=== PATIENT | male | born 1960 | race Caucasian/White ===

== ENCOUNTER 2017-06-13 12:04 | Emergency (ER) | payer OTHER ==
[~2017-06-13] VITALS: Ht 180.3 cm; Wt 115.0 kg
[~2017-06-13 12:04] MED LIST: ASPI81TA21 PO; ATOR-26 PO; BUTA1CAP20 PO; INSDGI SC; LISI20TA3 PO; NVLGI SC; SERT-234 PO; SOTA120T PO; TRAZ50TA35 PO; WARF5TAB90 PO
[2017-06-13] MEDS ORDERED: ASPIRIN 81 MG CHEW PO STA (12:15)
[2017-06-13 12:16] VITALS: O2SAT 93
[2017-06-13 12:18] VITALS: TEMP 36.7; Ht 180.3 cm; Wt 115.0 kg
[2017-06-13] MEDS ORDERED: ONDANSETRON INJ 2 MG/ML 2 ML VIAL IV STA (12:24)
[2017-06-13] MEDS ORDERED: MoRPHine SULFATE 4 MG/ML 1 ML CARP\\VIAL IV PRN (12:30)
--- NOTE | 2017-06-13 12:33 | EMERGENCY ROOM VISIT NOTE ---
History Report prepared by Mireille: Shruthi Stoddard Under the Supervision of: Dr. Navdeep Gomez D.O. First contact with patient: 12:14 Chief Complaint: SHORTNESS OF BREATH Stated Complaint: BREATHING DIFFICULTY Nursing Triage Summary: patient to ED via ALS for SOB and chest pain x 2 days, per medic patient was 88 % on RA initially with improvement with one duoneb and 125mg solumedrol. patient hx asthma, everyday smoker, mutliple DE's and CABG patient states, "its just really tight in there, I have chest pain but its feels like its the hardware from my heart surgery" History of Present Illness The patient is a 56 year old male who presents to the Emergency Room with complaints of constant shortness of breath beginning 2 days ago. The patient states that he developed a non-productive cough 2 days ago and has been wheezing. He reports that his cough has caused headaches and chest pain that has worsened over the last 2 days with coughing. He notes that he does have dull chest pain at rest but it is significantly worsened with coughing. The patient complains of a headache, nausea, and lower back pain. He denies any fever, vomiting, leg swelling, leg pain, abdominal pain, and runny nose. He reports a history of bypass in 2006 and cardiac catheterization in 2016. He notes that his symptoms feel similar to a previous pneumonia. The patient states that he is on Warfarin for atrial fibrillation and Aspirin daily. He denies any history of blood clot. He notes that he smokes a 1/2 pack of cigarettes a day. Source of History: patient Onset: 2 days ago Position: other (global) Quality: other (SOB) Timing: constant Modifying Factors (Worsening): other (coughing) Associated Symptoms: + headache, + cough, + chest pain, + nausea, + back pain, No fevers, No vomiting, No abdominal pain Note: He denies any leg swelling, leg pain, and runny nose. Review of Systems See HPI for pertinent positives & negatives. A total of 10 systems reviewed and were otherwise negative. Past Medical & Surgical Medical Problems: (1) CAD (coronary artery disease) (2) Diabetes mellitus type 2 in obese (3) Dyslipidemia (4) History of DE (myocardial infarction) (5) History of TIA (transient ischemic attack) (6) HTN (hypertension) (7) MAGO (obstructive sleep apnea) Surgical Problems: (1) History of coronary artery bypass graft Family History Diabetes mellitus FH: lung disease FHx: cancer FHx: heart disease Hypertension Social History Smoking Status: Current Every Day Smoker Alcohol Use: none Drug Use: none Marital Status: Housing Status: lives with significant other Occupation Status: employed Current/Historical Medications Scheduled Amlodipine (Norvasc), 2.5 MG PO DAILY Aspirin Enteric Coated (Ecotrin Or Generic), 81 MG PO DAILY Atorvastatin (Lipitor), 80 MG PO DAILY Azithromycin (Zithromax), 500 MG PO DAILY Insulin Aspart (Novolog), 40 UNITS SQ DAILY Insulin Aspart (Novolog), 50 UNITS SQ DAILY Insulin Glargine (Lantus Solostar), 100 UNITS SC HS Lisinopril (Prinivil), 10 MG PO DAILY Metformin Hcl Er (Glucophage Er), 500 MG PO BID Sertraline (Zoloft), 50 MG PO DAILY Sotalol Hcl (Sotalol Hcl), 120 MG PO BID Trazodone Hcl (Trazodone), 100 MG PO HS Warfarin Sod (Jantoven), 5 MG PO DAILY Warfarin Sod (Jantoven), 7.5 MG PO DAILY Scheduled PRN Hydrocodone/Acetaminophen 5MG/325MG ([place] 5MG/325MG), 1 TABLET PO Q4 PRN for Pain Allergies Coded Allergies: Oxycodone (Verified Adverse Reaction, Mild, Upset stomach, 06/13/17) Physical Exam Vital Signs Date Time Temp Pulse Resp B/P (MAP) Pulse Ox O2 Delivery O2 Flow Rate FiO2 06/13/17 15:52 156/112 06/13/17 15:39 68 14 94 06/13/17 15:09 70 23 94 06/13/17 15:02 153/73 06/13/17 14:39 68 11 93 06/13/17 14:34 60 12 06/13/17 14:04 75 14 96 06/13/17 13:34 68 15 91 06/13/17 13:04 64 18 90 06/13/17 12:39 69 17 152/86 93 Room Air 06/13/17 12:38 152/86 06/13/17 12:34 70 25 06/13/17 12:18 93 Room Air 06/13/17 12:18 36.7 79 28 177/98 93 Room Air 06/13/17 12:16 93 Room Air 06/13/17 12:16 93 Room Air 06/13/17 12:13 74 06/13/17 12:08 177/98 Physical Exam GENERAL: Patient is awake, alert, somewhat anxious appearing and uncomfortable EYES: The conjunctivae are clear. The pupils are round and reactive. EARS, NOSE, MOUTH AND THROAT: The nose is without any evidence of any deformity. Mucous membranes are moist tongue is midline NECK: The neck is nontender and supple. RESPIRATORY: Normal respiratory effort is noted there is no evidence of wheezing rhonchi or rales CARDIOVASCULAR: Regular rate and rhythm noted there no murmurs rubs or gallops normal S1 normal S2 GASTROINTESTINAL: The abdomen is mildly distended but soft, no guarding or rigidity. Bowel sounds are present in all quadrants. Abdomen is nontender MUSCULOSKELETAL/EXTREMITIES: There is no evidence of gross deformity full range of motion is noted in the hips and shoulders SKIN: There is no obvious evidence of any rash. There are no petechiae, pallor or cyanosis noted. NEUROLOGIC: Patient is awake alert and oriented x3 Medical Decision & Procedures ER Provider Diagnostic Interpretation: Radiology results as stated below per my review and radiologist interpretation: CHEST ONE VIEW PORTABLE HISTORY: 56 years-old Male CHEST PAIN acute atypical chest pain COMPARISON: Chest radiograph 11/15/2015, chest CT 04/14/2016 TECHNIQUE: Portable AP view of the chest FINDINGS: Cardiac silhouette is mildly enlarged, unchanged. Prior median sternotomy and CABG. No pneumothorax, pleural effusion, focal airspace consolidation or overt pulmonary edema. Mild pulmonary vascular congestion. Linear subsegmental left perihilar opacity suggests atelectasis. The bones of the chest appear grossly intact. IMPRESSION: Cardiomegaly and mild pulmonary vascular congestion without overt pulmonary edema. The above report was generated using voice recognition software. It may contain grammatical, syntax or spelling errors. Electronically signed by: Abel Yoo M.D. 06/13/2017 1:01 PM Dictated Date/Time: 06/13/2017 1:00 PM (CHEST FOR PE) ANGIO WITH FINDINGS: CTA: Mild multichamber cardiac enlargement with coronary arterial calcifications. Prior median sternotomy and CABG. Thoracic aorta is not well opacified, however demonstrates no aneurysm or dissection. Imaged proximal great vessels appear patent. Mild to moderate atherosclerosis of the aorta. The pulmonary arterial tree is opacified to level of the proximal subsegmental branches and demonstrates no focal defects to suggest pulmonary thromboembolic disease. CT CHEST: No dominant thyroid nodule identified. Nonspecific mildly prominent 1.7 x 0.9 cm right hilar lymph node seen on image 173 series 4. Mildly prominent 9 mm left hilar lymph node seen on image 174 series 4. Trace bilateral pleural effusions. No pneumothorax. Moderate bronchial wall thickening is noted bilaterally within a multilobar distribution. Mild dependent subsegmental bibasilar atelectasis. Dependent consolidative and groundglass opacities are noted within the right upper lobe abutting the fissure. Linear pleural parenchymal scarring is noted within the anterior segment left upper lobe which is unchanged. Mild intralobular septal thickening bilaterally. Central airways are patent. 5 mm nodule of the right upper lobe, image 214 series 14 appears new from prior study. No acute abnormality of the imaged upper abdomen. Soft tissues are unremarkable. Bones appear intact. IMPRESSION: 1. No pulmonary embolus or acute aortic pathology. 2. Prominence of the pulmonary veins and intralobular septal thickening suggests mild pulmonary edema with trace bilateral pleural effusions. Layering groundglass opacities of the right upper lobe adjacent to the minor fissure suggest alveolar pulmonary edema or less likely pneumonitis. 3. Moderate bilateral bronchial wall thickening likely secondary to underlying congestion with bronchitis also within the differential. 4. Indeterminate 5 mm nodule of the right upper lobe. 5. Prior median sternotomy and CABG. Please refer to below summary of Fleischner criteria recommendations for follow-up of incidental CT nodules (Balaji Onofre, Guidelines for management of small pulmonary nodules detected on CT scans: A statement from the Fleischner Society, Radiology 237: [phone].) SOLID NODULES Solitary nodule size: <6 mm * Low risk patients: no follow-up needed * high risk patients: optional CT at 12 months Solitary nodule size: 6-8 mm * Low risk patients: follow-up at 6-12 months, then consider further follow-up at 18-24 months * high risk patients: initial follow-up CT at 6-12 months and then at 18-24 months if no change Solitary nodule size: >8 mm * either low or high risk patients - consider follow-up CT at 3 months, and/or CT-PET, and/or biopsy Multiple nodules size: <6 mm * Low risk patients: no routine follow-up * high risk patients: optional CT at 12 months Multiple nodules size: 6-8 mm * Low risk patients: follow-up at 3-6 months, then consider further follow-up at 18-24 months * high risk patients: follow-up at 3-6 months, then at 18-24 months if no change Multiple nodules size: >8 mm * Low risk patients: follow-up at 3-6 months, then consider further follow-up at 18-24 months * high risk patients: follow-up at 3-6 months, then at 18-24 months if no change Note: newly detected indeterminate nodule in persons 35 years of age or older. * Low risk patients: minimal or absent history of smoking and/or other known risk factors * high risk patients: history of smoking or of other known risk factors (e.g. first degree relative with lung cancer, or exposure to asbestos, radon, uranium) * if a nodule up to 8 mm is partly solid or is ground glass further follow-up is required after 24 months to exclude possible slow growing adenocarcinoma (VIVIENNE) The above report was generated using voice recognition software. It may contain grammatical, syntax or spelling errors. Electronically signed by: Abel Yoo M.D. 06/13/2017 4:38 PM Dictated Date/Time: 06/13/2017 4:20 PM Laboratory Results 06/13/17 12:32 Red Blood Count 4.97, Mean Corpuscular Volume 83.7, Mean Corpuscular Hemoglobin 29.2, Mean Corpuscular Hemoglobin Concent 34.9, Mean Platelet Volume 10.6, Neutrophils (%) (Auto) 76.4, Lymphocytes (%) (Auto) 14.6, Monocytes (%) (Auto) 7.0, Eosinophils (%) (Auto) 1.5, Basophils (%) (Auto) 0.3, Neutrophils # (Auto) 4.94, Lymphocytes # (Auto) 0.94, Monocytes # (Auto) 0.45, Eosinophils # (Auto) 0.10, Basophils # (Auto) 0.02 06/13/17 12:15 Test 06/13/17 12:15 06/13/17 12:32 Prothrombin Time 28.1 SECONDS (9.0-12.0) Prothromb Time International Ratio 2.7 (0.9-1.1) Activated Partial Thromboplast Time 33.1 SECONDS (21.0-31.0) Partial Thromboplastin Ratio 1.3 Anion Gap 5.0 mmol/L (3-11) Est Creatinine Clear Calc Drug Dose 119.7 ml/min Estimated GFR () 110.3 Estimated GFR (Non- 95.2 BUN/Creatinine Ratio 9.5 (10-20) Calcium Level 8.4 mg/dl (8.5-10.1) Total Bilirubin 0.9 mg/dl (0.2-1) Direct Bilirubin mg/dl (0-0.2) Aspartate Amino Transf (AST/SGOT) 17 U/L (15-37) Alanine Aminotransferase (ALT/SGPT) 30 U/L (12-78) Alkaline Phosphatase 69 U/L (45-117) Total Creatine Kinase 139 U/L (39-308) Creatine Kinase MB 2.9 ng/ml (0.5-3.6) Creatine Kinase MB Ratio 2.1 (0-3.0) Troponin I 0.036 ng/ml (0-0.045) Total Protein 6.7 gm/dl (6.4-8.2) Albumin 3.5 gm/dl (3.4-5.0) Lipase 165 U/L (73-393) Chemistry Specimen Hemolysis White Blood Count 6.46 K/uL (4.8-10.8) Red Blood Count 4.97 M/uL (4.7-6.1) Hemoglobin 14.5 g/dL (14.0-18.0) Hematocrit 41.6 % (42-52) Mean Corpuscular Volume 83.7 fL (80-100) Mean Corpuscular Hemoglobin 29.2 pg (25-34) Mean Corpuscular Hemoglobin Concent 34.9 g/dl (32-36) Platelet Count 98 K/uL (130-400) Mean Platelet Volume 10.6 fL (7.4-10.4) Neutrophils (%) (Auto) 76.4 % Lymphocytes (%) (Auto) 14.6 % Monocytes (%) (Auto) 7.0 % Eosinophils (%) (Auto) 1.5 % Basophils (%) (Auto) 0.3 % Neutrophils # (Auto) 4.94 K/uL (1.4-6.5) Lymphocytes # (Auto) 0.94 K/uL (1.2-3.4) Monocytes # (Auto) 0.45 K/uL (0.11-0.59) Eosinophils # (Auto) 0.10 K/uL (0-0.5) Basophils # (Auto) 0.02 K/uL (0-0.2) RDW Standard Deviation 38.9 fL (36.4-46.3) RDW Coefficient of Variation 13.0 % (11.5-14.5) Immature Granulocyte % (Auto) 0.2 % Immature Granulocyte # (Auto) 0.01 K/uL (0.00-0.02) Platelet Estimate DECREASED Laboratory results per my review. Medications Administered Medications (Trade) Dose Ordered Sig/Raissa Route Start Time Stop Time Status Last Admin Dose Admin Aspirin (Aspirin Chew) 324 mg NOW STAT PO 06/13/17 12:15 06/13/17 12:16 DC 06/13/17 12:37 324 MG Morphine Sulfate (MoRPHine SULFATE INJ) 4 mg Q15M PRN IV 06/13/17 12:30 06/13/17 18:17 DC 06/13/17 12:37 4 MG Ondansetron HCl (Zofran Inj) 4 mg NOW STAT IV 06/13/17 12:24 06/13/17 12:25 DC 06/13/17 12:37 4 MG Azithromycin (Zithromax Tab) 500 mg NOW STAT PO 06/13/17 15:37 06/13/17 15:38 DC 06/13/17 15:54 500 MG ECG Indication: chest pain Rate (beats per minute): 78 Rhythm: normal sinus Findings: Q waves (Inferior), ST depression (Lateral), T-wave inversion, no ectopy Comparison ECG Date: 11/19/15 Change: no significant change ED Course 1214: The patient was evaluated in room C2. A complete history and physical examination were performed. 1215: Aspirin 324mg PO. 1224: Zofran Inj 4mg IV. 1230: Morphine Sulfate 4mg PRN IV pain. 1324: The patient is feeling better. His chest pain has significantly improved. 1326: I spoke to Dr. Metz of Cardiology. He will do an echo on the patient. 1533: I spoke to Dr. Metz about the patients echo. The echo is unchanged from before. At this point his chest pain does not appear to be cardiac in nature. 1537: Zithromax 500 mg PO. 1600: Optiray 320 100 ml IV. 1708: I spoke with the patient and updated them with their findings and pain management options. 1717: Upon reevaluation, the patient is doing well. I discussed the results and treatment plan with him. The patient verbalized agreement of the treatment plan. He was discharged home. Medical Decision Differential diagnosis: Etiologies such as infections, reactive airway disease, pneumonia, pneumothorax , COPD, CHF, cardiac ischemia, pulmonary embolism, musculoskeletal, gastrointestinal, as well as others were entertained. Nursing notes reviewed. The patient is a 56-year-old male who presented to the emergency department for an evaluation of cough. The patient has had ongoing cough symptoms which he thought were more consistent with either pneumonia or bronchitis. The patient has a history of coronary artery disease in the past. His initial EKG did show changes which could be consistent with ongoing ischemia but the patient has significant coronary artery disease as well as a history of bypass. His tracing today could also be consistent with progression of his EKG consistent with his previous disease. The patient's pain was reproducible the abdomen and the chest wall. The patient was treated with pain medication in the emergency department. He was also given aspirin. According to the prehospital personnel the patient was wheezing and was treated with DuoNeb therapy. Upon arrival to the emergency Department his breathing was significantly improved. I discussed the patient's laboratory and radiographic studies with him. I discussed his case with his covering copy center associate. An echocardiogram was ordered to evaluate for the possibility of ischemia. The echocardiogram was felt to be consistent with no significant change from previous. This reason CT the chest was obtained to rule out pulmonary embolism. I discussed the patient's CT report with him. At this time the patient is feeling much better. He is convinced that this is more consistent with bronchitis which she has had in the past or possibly pneumonia. He was started on antibiotic. He was started on pain medication. He was encouraged to rest and avoid any strenuous activity. I encouraged him to follow- up with his primary care physician within the next few days for reevaluation but also return to the emergency department immediately if symptoms change worsen or the need arises. I did offer to have the patient evaluated by the hospitalist for possible inpatient management and serial EKG and troponin measurement. Medication Reconcilliation Current Medication List: was personally reviewed by me Blood Pressure Screening Patient's blood pressure: Elevated blood pressure Blood pressure disposition: Elevated BP felt to be situational Consults Time Called: 1320 Consulting Physician: Dr. Metz - Cardiology Returned Call: 1326, [address] Metz of Cardiology. He will do an echo on the patient. I spoke to Dr. Metz about the patients echo. The echo is unchanged from before. At this point his chest pain does not appear to be cardiac in nature. Impression Primary Impression: Chest pain Additional Impressions: Bronchitis Abnormal EKG Scribe Attestation The scribe's documentation has been prepared under my direction and personally reviewed by me in its entirety. I confirm that the note above accurately reflects all work, treatment, procedures, and medical decision making performed by me. Departure Information Dispostion Home / Self-Care Prescriptions Hydrocodone/Acetaminophen 5MG/325MG ([place] 5MG/325MG) Tab 1 TABLET PO Q4 Y for Pain, #20 TAB Prov: Navdeep Gomez, DO 06/13/17 Azithromycin (Zithromax) 500 Mg Tab 500 MG PO DAILY, #4 TAB Start on 06/14 Prov: Navdeep Gomez, DO 06/13/17 Referrals Fish Estrella D.OSapphire (PCP) Forms HOME CARE DOCUMENTATION FORM, IMPORTANT VISIT INFORMATION Patient Instructions Bronchitis Acute, ED Chest Pain Atypical Unkn Cause, My [facility] Intent Additional Instructions Continue all medications as prescribed. Try to limit your tobacco use. Rest and avoid any strenuous activity. Return to the emergency department immediately if symptoms change worsen or the need arises. Problem Qualifiers Primary Impression: Chest pain Chest pain type: unspecified Qualified Codes: R07.9 - Chest pain, unspecified
[2017-06-13 12:41] LABS: INR 2.7 (0.9-1.1); PARTIAL THROMBOPLASTIN RATIO 1.3; PROTHROMBIN TIME (PATIENT) 28.1 SECONDS (9.0-12.0)
[2017-06-13] MEDS ORDERED: WARF5TAB7 PO (12:47)
[2017-06-13] MEDS ORDERED: AMLO2.5T PO (12:47)
[2017-06-13] MEDS ORDERED: METF500T5 PO (12:47)
[2017-06-13] MEDS ORDERED: NVLG SQ (12:47)
[2017-06-13] MEDS ORDERED: INSDGIPEN SC (12:47)
[2017-06-13 12:53] LABS: HEMATOCRIT 41.6 % (42-52); MEAN CELL VOLUME 83.7 fL (80-100); MEAN CORPUSCULAR HEMOGLOBIN 29.2 pg (25-34); MEAN CORPUSCULAR HGB CONC 34.9 g/dl (32-36); RED BLOOD COUNT 4.97 M/uL (4.7-6.1); WHITE BLOOD COUNT 6.46 K/uL (4.8-10.8)
[2017-06-13 12:57] LABS: BUN/CREATININE RATIO 9.5 (10-20); CALCIUM 8.4 mg/dl (8.5-10.1); CKMB/CK RATIO 2.1 (0-3.0); CREATININE 0.91 mg/dl (0.60-1.40); POTASSIUM 3.9 mmol/L (3.5-5.1)
--- NOTE | 2017-06-13 13:03 | DIAGNOSTIC IMAGING REPORT ---
CHEST ONE VIEW PORTABLE HISTORY: 56 years-old Male CHEST PAIN acute atypical chest pain COMPARISON: Chest radiograph 11/15/2015, chest CT 04/14/2016 TECHNIQUE: Portable AP view of the chest FINDINGS: Cardiac silhouette is mildly enlarged, unchanged. Prior median sternotomy and CABG. No pneumothorax, pleural effusion, focal airspace consolidation or overt pulmonary edema. Mild pulmonary vascular congestion. Linear subsegmental left perihilar opacity suggests atelectasis. The bones of the chest appear grossly intact. IMPRESSION: Cardiomegaly and mild pulmonary vascular congestion without overt pulmonary edema. The above report was generated using voice recognition software. It may contain grammatical, syntax or spelling errors. Electronically signed by: Abel Yoo M.D. 06/13/2017 1:01 PM Dictated Date/Time: 06/13/2017 1:00 PM
[2017-06-13 13:06] LABS: MEAN PLATELET VOLUME 10.6 fL (7.4-10.4); PLATELET COUNT 98 K/uL (130-400)
[2017-06-13 13:07] LABS: BASO % 0.3 %; BASO ABS # 0.02 K/uL (0-0.2); COMPLETE YES; EOS % 1.5 %; IG% 0.2 %; LYMPH % 14.6 %; LYMPH ABS # 0.94 K/uL (1.2-3.4); NEUT % 76.4 %; PLT ESTIMATE DECREASED
[2017-06-13] MEDS ORDERED: AZITHROMYCIN 250 MG TAB PO STA (15:37)
[2017-06-13 15:39] VITALS: PULSE 68; O2SAT 94
--- NOTE | 2017-06-13 15:42 | ECHOCARDIOGRAM REPORT ---
*NOTICE TO RECEIVING CONSTITUTION PARTY AGENCY This information is strictly Confidential and protected under [place] law. [place] law prohibits you from making any further disclosure of this information unless further disclosure is expressly permitted by the written consent of the person to whom it pertains or is authorized by law. A general authorization for the release of medical or other information is not sufficient for this purpose. Hospital accepts no responsibility if the information is made available to any other person, INCLUDING THE PATIENT. Interpretation Summary * Name: CHICHO SALDIVAR Study Date: 06/13/2017 02:06 PM BP: 152/86 mmHg * Patient Location: [facility] HR: 68 * : 1960 (M/d/yyyy) Gender: Male Height: 71 in * Age: 56 yrs Ethnicity: [place] Weight: 253 lb * Ordering Physician: Luis Manuel Metz * Referring Physician: Self, Referred * Performed By: Susana Adler RCS * * Reason For Study: CHEST PAIN * BSA: 2.3 m2 * -- Conclusions -- * No change compared to previous study of 11/17/15. * Normal LV chamber size with mild concentric LVH. * Normal LV systolic function, EF 55-60%. * The base inferior wall is thinned and akinetic. The base/mid posterior wall and mid inferior wall is hypokinetic, otherwise, normal wall motion. * Grade II diastolic dysfunction. * The right ventricular cavity size is normal (basal dimension <4.2 cm in right ventricular apical 4-chamber view). * Aortic valve sclerosis mild, without significant aortic valvular stenosis. * Mild left atrial enlargement. Procedure Details * A complete two-dimensional transthoracic echocardiogram was performed (2D, M-mode, Doppler and color flow Doppler). Left Ventricle * The left ventricle is normal in size. * There is mild concentric left ventricular hypertrophy. * Ejection Fraction = 55-60%. * Left ventricular systolic function is normal. * The base inferior wall is thinned and akinetic. The base/mid posterior wall and mid inferior wall is hypokinetic. Right Ventricle * The right ventricular cavity size is normal (basal dimension <4.2 cm in right ventricular apical 4-chamber view). * The right ventricular systolic function is normal as assessed by tricuspid annular plane systolic excursion (TAPSE) (normal >1.5 cm). Atria * The left atrium is mildly dilated. * Right atrial size is normal. * No ASD detected; PFO is not assessed. Mitral Valve * The mitral valve is normal in structure and function. Tricuspid Valve * The tricuspid valve is normal in structure and function. Aortic Valve * The aortic valve is tricuspid. The leaflet thickness if normal. There is no aortic stenosis, and no significant insufficiency. * Aortic valve sclerosis mild, without significant aortic valvular stenosis. * There is no significant aortic regurgitation. Pulmonic Valve * The pulmonary valve is not well seen, but the Doppler examination is normal without significant regurgitation or stenosis. Great Vessels * The aortic root is normal size. Pericardium/Pleural * There is no pericardial effusion. Left Ventricular Diastolic Function * Diastolic dysfunction, Grade II (pseudonormalization pattern). MMode 2D Measurements and Calculations IVSd 1.4 cm IVSs 2.1 cm LVIDd 5.9 cm LVIDs 4.9 cm LVPWd 1.3 cm LVPWs 1.4 cm IVS/LVPW 1.1 FS 16.2 % EDV(Teich) 172.1 ml ESV(Teich) 114.4 ml EF(Teich) 33.5 % EDV(cubed) 203.7 ml ESV(cubed) 119.7 ml EF(cubed) 41.2 % % IVS thick 51.3 % % LVPW thick 10.2 % LV mass(C)d 346.4 grams LV mass(C)dI 148.7 grams/m\S\2 LV mass(C)s 393.9 grams LV mass(C)sI 169.0 grams/m\S\2 SV(Teich) 57.7 ml SI(Teich) 24.8 ml/m\S\2 SV(cubed) 83.9 ml SI(cubed) 36.0 ml/m\S\2 Ao root diam 2.6 cm Ao root area 5.4 cm\S\2 ACS 2.0 cm LA dimension 4.8 cm LA/Ao 1.8 LVOT diam 1.6 cm LVOT area 2.0 cm\S\2 LVAd ap4 42.2 cm\S\2 LVLd ap4 9.1 cm EDV(MOD-sp4) 161.1 ml EDV(sp4-el) 165.4 ml LVAs ap4 27.2 cm\S\2 LVLs ap4 7.4 cm ESV(MOD-sp4) 91.8 ml ESV(sp4-el) 84.4 ml EF(MOD-sp4) 43.0 % EF(sp4-el) 49.0 % LVAd ap2 37.3 cm\S\2 LVLd ap2 8.3 cm EDV(MOD-sp2) 139.0 ml EDV(sp2-el) 142.3 ml LVAs ap2 26.3 cm\S\2 LVLs ap2 7.0 cm ESV(MOD-sp2) 84.3 ml ESV(sp2-el) 83.8 ml EF(MOD-sp2) 39.3 % EF(sp2-el) 41.1 % LVLd %diff -10.36 % EDV(MOD-bp) 156.8 ml LVLs %diff -6.49 % ESV(MOD-bp) 86.7 ml EF(MOD-bp) 44.7 % SV(MOD-sp4) 69.3 ml SI(MOD-sp4) 29.7 ml/m\S\2 SV(MOD-sp2) 54.7 ml SI(MOD-sp2) 23.5 ml/m\S\2 SV(MOD-bp) 70.1 ml SI(MOD-bp) 30.1 ml/m\S\2 SV(sp4-el) 81.0 ml SI(sp4-el) 34.8 ml/m\S\2 SV(sp2-el) 58.5 ml SI(sp2-el) 25.1 ml/m\S\2 Doppler Measurements and Calculations MV E max maria fernanda 103.2 cm/sec MV A max maria fernanda 58.8 cm/sec MV E/A 1.8 MV P1/2t max maria fernanda 112.2 cm/sec MV P1/2t 69.8 msec MVA(P1/2t) 3.2 cm\S\2 MV dec slope 470.5 cm/sec\S\2 MV dec time 0.21 sec Ao V2 max 126.8 cm/sec Ao max PG 6.4 mmHg Ao max PG (full) 3.7 mmHg ADRIANA(V,A) 1.3 cm\S\2 ADRIANA(V,D) 1.3 cm\S\2 LV V1 max PG 2.7 mmHg LV V1 max 82.1 cm/sec MR max maria fernanda 362.4 cm/sec MR max PG 52.5 mmHg PA V2 max 111.1 cm/sec PA max PG 4.9 mmHg TR max maria fernanda 305.4 cm/sec
[2017-06-13 15:52] VITALS: BP 156/112
[2017-06-13] MEDS ORDERED: OPTIRAY 320 IV PRN (16:00)
--- NOTE | 2017-06-13 16:39 | DIAGNOSTIC IMAGING REPORT ---
(CHEST FOR PE) ANGIO WITH CT DOSE: 588.60 mGycm HISTORY: 56 years-old Male presents with acute atypical chest pain TECHNIQUE: Multiple CTA images of the chest were obtained after the intravenous administration of 89 ml Optiray 320. Coronal and sagittal MIPS were obtained from the axial data set and were submitted for review. A dose lowering technique was utilized adhering to the principles of ALARA. COMPARISON: Chest radiograph of same day, chest CT 04/14/2016. FINDINGS: CTA: Mild multichamber cardiac enlargement with coronary arterial calcifications. Prior median sternotomy and CABG. Thoracic aorta is not well opacified, however demonstrates no aneurysm or dissection. Imaged proximal great vessels appear patent. Mild to moderate atherosclerosis of the aorta. The pulmonary arterial tree is opacified to level of the proximal subsegmental branches and demonstrates no focal defects to suggest pulmonary thromboembolic disease. CT CHEST: No dominant thyroid nodule identified. Nonspecific mildly prominent 1.7 x 0.9 cm right hilar lymph node seen on image 173 series 4. Mildly prominent 9 mm left hilar lymph node seen on image 174 series 4. Trace bilateral pleural effusions. No pneumothorax. Moderate bronchial wall thickening is noted bilaterally within a multilobar distribution. Mild dependent subsegmental bibasilar atelectasis. Dependent consolidative and groundglass opacities are noted within the right upper lobe abutting the fissure. Linear pleural parenchymal scarring is noted within the anterior segment left upper lobe which is unchanged. Mild intralobular septal thickening bilaterally. Central airways are patent. 5 mm nodule of the right upper lobe, image 214 series 14 appears new from prior study. No acute abnormality of the imaged upper abdomen. Soft tissues are unremarkable. Bones appear intact. IMPRESSION: 1. No pulmonary embolus or acute aortic pathology. 2. Prominence of the pulmonary veins and intralobular septal thickening suggests mild pulmonary edema with trace bilateral pleural effusions. Layering groundglass opacities of the right upper lobe adjacent to the minor fissure suggest alveolar pulmonary edema or less likely pneumonitis. 3. Moderate bilateral bronchial wall thickening likely secondary to underlying congestion with bronchitis also within the differential. 4. Indeterminate 5 mm nodule of the right upper lobe. 5. Prior median sternotomy and CABG. Please refer to below summary of Fleischner criteria recommendations for follow-up of incidental CT nodules (Balaji Onofre, Guidelines for management of small pulmonary nodules detected on CT scans: A statement from the Fleischner Society, Radiology 237: [phone].) SOLID NODULES Solitary nodule size: <6 mm * Low risk patients: no follow-up needed * high risk patients: optional CT at 12 months Solitary nodule size: 6-8 mm * Low risk patients: follow-up at 6-12 months, then consider further follow-up at 18-24 months * high risk patients: initial follow-up CT at 6-12 months and then at 18-24 months if no change Solitary nodule size: >8 mm * either low or high risk patients - consider follow-up CT at 3 months, and/or CT-PET, and/or biopsy Multiple nodules size: <6 mm * Low risk patients: no routine follow-up * high risk patients: optional CT at 12 months Multiple nodules size: 6-8 mm * Low risk patients: follow-up at 3-6 months, then consider further follow-up at 18-24 months * high risk patients: follow-up at 3-6 months, then at 18-24 months if no change Multiple nodules size: >8 mm * Low risk patients: follow-up at 3-6 months, then consider further follow-up at 18-24 months * high risk patients: follow-up at 3-6 months, then at 18-24 months if no change Note: newly detected indeterminate nodule in persons 35 years of age or older. * Low risk patients: minimal or absent history of smoking and/or other known risk factors * high risk patients: history of smoking or of other known risk factors (e.g. first degree relative with lung cancer, or exposure to asbestos, radon, uranium) * if a nodule up to 8 mm is partly solid or is ground glass further follow-up is required after 24 months to exclude possible slow growing adenocarcinoma (VIVIENNE) The above report was generated using voice recognition software. It may contain grammatical, syntax or spelling errors. Electronically signed by: Abel Yoo M.D. 06/13/2017 4:38 PM Dictated Date/Time: 06/13/2017 4:20 PM
[2017-06-13] MEDS ORDERED: AZIT500T26 PO (17:18)
[2017-06-13] MEDS ORDERED: HYDR-5688 PO (17:18)
== END 2017-06-13 17:33 | disposition home or self-care (01) ==
LOC: C.EDC 12:04 → EDBD 12:04 → C.EDC 17:33
DX: R07.9 Chest pain, unspecified (principal); J40 Bronchitis, not specified as acute or chronic; R94.31 Abnormal electrocardiogram [ECG] [EKG]; I25.10 Atherosclerotic heart disease of native coronary artery without angina pectoris; E11.9 Type 2 diabetes mellitus without complications; E66.9 Obesity, unspecified; I25.2 Old myocardial infarction; Z86.73 Personal history of transient ischemic attack (TIA), and cerebral infarction without residual deficits; G47.33 Obstructive sleep apnea (adult) (pediatric); I10 Essential (primary) hypertension; E78.5 Hyperlipidemia, unspecified; Z83.3 Family history of diabetes mellitus; Z83.6 Family history of other diseases of the respiratory system; Z80.9 Family history of malignant neoplasm, unspecified; Z82.49 Family history of ischemic heart disease and other diseases of the circulatory system; F17.210 Nicotine dependence, cigarettes, uncomplicated; Z79.4 Long term (current) use of insulin; Z79.01 Long term (current) use of anticoagulants; Z79.899 Other long term (current) drug therapy

== ENCOUNTER → 2017-10-03 | Day surgery (SDC) | payer OTHER ==
[2017-09-27 10:15] VITALS: BMI 36.0
[~2017-10-03] VITALS: Ht 180.3 cm; Wt 118.2 kg
[~2017-10-03] MED LIST changes: +AMLO2.5T PO; -ASPI81TA21 PO; +ASPI81TA28 PO; -BUTA1CAP20 PO; +FLUO40CA8 PO; +FURO-85 PO; -INSDGI SC; +INSDGIPEN SC; +LIDOCAINE HCL 2% 2 ML VIAL (20MG/ML) ONE; +MIDAZOLAM HCL 1 MG/ML 2ML VIAL ONE; +MISCCAP80 PO; +NVLG SQ; -NVLGI SC; +ONDANSETRON INJ 2 MG/ML 2 ML VIAL ONE; +PROPOFOL IV EMULSION 10 MG/ML 20 ML VIAL IV ONE; -SERT-234 PO; +SODIUM CHLORIDE 0.9% 500ML 500 ML IV ONE; -SOTA120T PO; +SOTA80TA PO; +SYMIN160 INH; +VNTHFA/IN INH; +WARF5TAB7 PO; -WARF5TAB90 PO
[2017-10-03 11:00] VITALS: Ht 180.3 cm; Wt 118.2 kg
--- NOTE | 2017-10-03 11:08 | Endo History and Physical ---
History & Physical Date of Service: Oct 03, 2017. Chief Complaint: Diarrhea Referring Physician: Brayan History of Present Illness pt with abdominal pain and diarrhea. Past Surgical History Hx Cardiac Surgery: Yes (CABG 3 VESSELS 2006; 2012 STENT x 2) Hx Internal Defibrillator: No Hx Pacemaker: No Hx Abdominal Surgery: No Hx of Implantable Prosthesis: No Hx Post-Op Nausea and Vomiting: No Hx Cancer Surgery: No Hx Thoracic Surgery: No ( ) Hx Orthopedic: No Hx Urinary Tract Surgery: No Family History None Social History Smoking Status: Current Every Day Smoker Hx Substance Use: No Hx Alcohol Use: No Allergies Coded Allergies: Oxycodone (Verified Adverse Reaction, Mild, DIZZINESS,Upset stomach, ) Current Medications Reported Home Medications Medications Dose Route/Sig Max Daily Dose Days Date Category Dose Instructions Sotalol Hcl 80 Mg Tab 120 Tab PO BID 90 09/27/17 Reported Aspirin Ec (Aspirin) 81 Mg Tab 81 Mg PO QAM 09/27/17 Reported Probiotic (Probiotic Product) 1 Cap Cap 2 Tab PO QAM 09/27/17 Reported Lasix (Furosemide) 20 Mg Tab 20 Mg PO QAM 09/27/17 Reported Ventolin Hfa (Albuterol) 200 Puffs/45484 Mcg Aers 2 Puffs INH Q6H PRN 09/27/17 Reported Symbicort 160/4.5 Inhaler (Budesonide/Formoterol Fumarate) Aero 2 Puffs INH BID 09/27/17 Reported Prozac (Fluoxetine HCl) 40 Mg Cap 40 Mg PO QAM 09/27/17 Reported Norvasc (Amlodipine Besylate) 2.5 Mg Tab 2.5 Mg PO QAM 06/13/17 Reported Jantoven (Warfarin Sodium) 5 Mg Tab 7.5 Mg PO DAILY 06/13/17 Reported WILL CHECK WITH [facility] FOR INSTRUCTIONS takes on sunday, sunday, , sunday and sunday Jantoven (Warfarin Sodium) 5 Mg Tab 5 Mg PO DAILY 06/13/17 Reported WILL CHECK WITH [facility] FOR [facility]STRUCTIONS takes on sunday and sunday Lantus Solostar (Insulin Glargine) 100 Unit/Ml Inj 100 Units SC HS 06/13/17 Reported Novolog (Insulin Aspart) 100 Units/Ml Inj 60 Units SQ SUPPER 06/13/17 Reported Novolog (Insulin Aspart) 100 Units/Ml Inj 40 Units SQ NOON 06/13/17 Reported Lipitor (Atorvastatin Calcium) 80 Mg Tab 80 Mg PO HS 11/15/15 Reported Prinivil (Lisinopril) 20 Mg Tab 10 Mg PO HS 11/15/15 Reported Trazodone (Trazodone HCl) 50 Mg Tab 100 Mg PO HS 03/16/14 Reported Vital Signs Weight (Kilograms): 118.18 Height (Feet): 5 Height (Inches): 11 Physical Exam General Appearance: no apparent distress Respiratory/Chest: Auscultation: breath sounds normal Cardiovascular: Heart Auscultation: RRR Abdomen: Inspection & Palpation: soft Liver: non-tender Assessment and Plan stable for colonoscopy
--- NOTE | 2017-10-03 11:41 | Discharge Instructions ---
Endoscopy Patient Instructions Date / Procedure(s) Performed Oct 03, 2017. Colonoscopy Allergy Information Coded Allergies: Oxycodone (Verified Adverse Reaction, Mild, DIZZINESS,Upset stomach, ) Discharge Date / Findings Oct 03, 2017. Normal colonoscopy Medication Instructions Stopped Medication(s): STOPPED WARAFIN. LAST DATE Sunday. Provider Instructions Activity Restrictions - No exercising or heavy lifting for 24 hours. - Do not drink alcohol the day of the procedure. - Do not drive a car or operate machinery until the day after the procedure. - Do not make any important decisions or sign important papers in 24 hours after the procedure. Following Day: - Return to full activity which may include returning to work/school. Diet Start your diet with liquids and light foods (jello, soup, juice, toast). Then eat your usual diet if not nauseated. Treatment For Common After Affects For mild abdominal pain, bloating, or excessive gas: - Rest - Eat lightly - Lie on right side Follow-Up Information Follow-up with DR. ROBLEDO as scheduled Anesthesia Information What You Should Know You have had a procedure that required some medicine to reduce anxiety and discomfort. This treatment is called moderate sedation. After receiving the treatment, you may be sleepy, but you will be able to breathe on your own. The effects of the treatment may last for several hours. Follow these instructions along with Activity/Diet recommendations noted above: * Do NOT do anything where dizziness or clumsiness would be dangerous. * Rest quietly at home today, then you can be up and about tomorrow. * Have a responsible person stay with you the rest of today. * You may have had an I.V. today. If so, you may take the dressing off later today. Recommendations Call your doctor if: * Trouble breathing * Continuous vomiting for more than 24 hours * Temperature above 101 degrees * Severe abdominal pain or bloating * Pain not relieved by pain medicine ordered * There is increased drainage or redness from any incision * A large amount of rectal bleeding greater than 2-3 tablespoons. (If you had a polyp/s removed or have hemorrhoids, a small amount of blood - from the rectum is to be expected.) * You have any unanswered questions or concerns. IN THE EVENT OF A SERIOUS EMERGENCY, GO TO THE NEAREST EMERGENCY ROOM Your discharge instructions were prepared by provider Sabino Pineda. Patient Instructions Signature Page Hunter Perez Patient (or Guardian) Signature/Date: I have read and understand the instructions given to me by my caregivers. Caregiver/RN/Doctor Signature/Date: The above-named patient and/or guardian has received patient instructions on this date. + Original Patient Signature Page (only) stays with chart. Please make copy for patient.
--- NOTE | 2017-10-03 11:45 | GI REPORT ---
Procedure Date: 10/03/2017 11:08 AM Procedure: Colonoscopy Indications: Generalized abdominal pain, Chronic diarrhea Medicines: See the Anesthesia note for documentation of the administered medications Complications: No immediate complications. Estimated Blood Loss: Estimated blood loss: none. Procedure: Pre-Anesthesia Assessment: - Prior to the procedure, a History and Physical was performed, and patient medications, allergies and sensitivities were reviewed. The patient's tolerance of previous anesthesia was reviewed. - The risks and benefits of the procedure and the sedation options and risks were discussed with the patient. All questions were answered and informed consent was obtained. - Patient identification and proposed procedure were verified prior to the procedure by the physician and the nurse. The procedure was verified in the pre-procedure area. - Pre-procedure physical examination revealed no contraindications to sedation. - After reviewing the risks and benefits, the patient was deemed in satisfactory condition to undergo the procedure. After I obtained informed consent, the scope was passed under direct vision. Throughout the procedure, the patient's blood pressure, pulse, and oxygen saturations were monitored continuously. The Scope was introduced through the anus and advanced to the terminal ileum, with identification of the appendiceal orifice and IC valve. The colonoscopy was performed without difficulty. The patient tolerated the procedure well. The quality of the bowel preparation was good. Findings: The perianal and digital rectal examinations were normal. The terminal ileum appeared normal. The entire examined colon appeared normal on direct and retroflexion views. Impression: - The examined portion of the ileum was normal. - The entire examined colon is normal on direct and retroflexion views. - No specimens collected. Recommendation: - Repeat colonoscopy in 10 years for screening purposes. - Discharge patient to home. Sabino Pineda M.D. Sabino Pineda MD 10/03/2017 11:45:09 AM This report has been signed electronically. Note Initiated On: 10/03/2017 11:08 AM I attest to the content of the Intraoperative Record and orders documented therein, exceptions below
[2017-10-03 12:15] VITALS: BP 128/81; PULSE 66; O2SAT 94
--- NOTE | 2017-10-03 12:25 | Anesthesiology Progress Note ---
Anesthesia Post Op Note Date & Time Oct 03, 2017 at 12:25 Vital Signs Pain Intensity: 0 Vital Signs Past 12 Hours Date Time Temp Pulse Resp B/P (MAP) Pulse Ox O2 Delivery O2 Flow Rate FiO2 10/03/17 12:15 66 18 128/81 (97) 94 Room Air 10/03/17 12:01 68 18 126/79 (95) 96 Room Air 10/03/17 11:46 36.8 58 16 131/88 (102) 97 Room Air 10/03/17 11:10 36.8 58 20 140/86 (104) 96 Room Air Notes Mental Status: alert / awake / arousable, participated in evaluation Pt Amnestic to Procedure: Yes Nausea / Vomiting: adequately controlled Pain: adequately controlled Airway Patency, RR, SpO2: stable & adequate BP & HR: stable & adequate Hydration State: stable & adequate Anesthetic Complications: no major complications apparent
== END | disposition home or self-care (01) ==
LOC: C.GI 09:47
PROVIDERS: ATTEND Internal Medicine Gastroenterology
DX: R10.84 Generalized abdominal pain (principal); R19.7 Diarrhea, unspecified; I48.0 Paroxysmal atrial fibrillation; F17.200 Nicotine dependence, unspecified, uncomplicated; Z88.5 Allergy status to narcotic agent; Z95.1 Presence of aortocoronary bypass graft; Z79.01 Long term (current) use of anticoagulants; Z79.4 Long term (current) use of insulin; Z79.82 Long term (current) use of aspirin

== ENCOUNTER 2019-01-02 02:44 | Inpatient (IN) ==
--- OUTSIDE RECORDS SUMMARY | 2019-01-02 02:46 | External Medical Summary | Continuity of Care Document ---
:1960 Author Name José Miguel Mensah, Provider Address Unavailable Unavailable , Care Team Providers Name Role Phone Naheed Thomson PA-C Unavailable [email or web address] Problems Chronic bronchitis (491.9) (J42) Pulmonary nodule (793.11) (R91.1) Shortness of breath (786.05) (R06.02) Diabetes (250.00) (E11.9) Hyperlipemia (272.4) (E78.5) PAD (peripheral artery disease) (443.9) (I73.9) Angina pectoris (413.9) (I20.9) Atrial fibrillation (427.31) (I48.91) Hypertension (401.9) (I10) Depression (311) (F32.9) Allergies and Adverse Reactions Percocet TABS (Allergy) Reaction: Dizzin ess, Nausea Medications Lisinopril 20 MG Oral Tablet; TAKE 1 TABLET TWICE DAILY. 15 Tablet Bottle Refills: 0 Aspirin 81 MG TABS; TAKE 1 TABLET DAILY. Quantity: 30 Refills: 5 traZODone HCl - 50 MG Oral Tablet; TAKE 1 TABLET AT BEDTIME. Quantity: 30 Refills: 5 NovoLOG 100 UNIT/ML Subcutaneous Solution; USE PER SLIDING S VERO 10 ML Vial Quantity: 10 Refills: 1 Lantus 100 UNIT/ML Subcutaneous Solution; INJECT SUBCUTANEOU SLY DIRECTED. Refills: 0 Nitroglycerin 0.4 MG Sublingual Tablet S ublingual; PLACE 1 TABLET UNDER THE TONGUE EVERY 5 MINUTES FOR UP TO 3 DOSES NEEDED FOR CHEST PAIN.CALL 911 IF PAIN PERSISTS. Refills: 0 Isosorbide Mononitrate ER 60 MG Oral Tab let Extended Release 24 Hour; TAKE 1 TABLET DAILY. Refills: 0 Potassium Chloride TBCR; TAKE 1 TABLET DAILY. Refills: 0 Lasix 20 MG Oral Tablet; TAKE 1 TABLET TWICE DAILY. Refills: 0 Eliquis 5 MG Oral Tablet Start: 019 Refills: 0 amLODIPine Besylate 2.5 MG Oral Tablet; TAKE 1 TABLET DAILY. Refills: 0 Sotalol HCl - 120 MG Oral Tablet; TAKE 1 TABLET TWICE DAILY. Quantity: 60 Refills: 0 Lipitor 80 MG Oral Tablet; TAKE 1 TABLET DAILY. Refills: 0 FLUoxetine HCl TABS; take 40mg daily Sta rt: 24-Aug-2016 Refills: 0 Symbicort 160-4.5 MCG/ACT Inhalation Aer osol; INHALE TWO PUFFS BY MOUTH TWICE DAILY KRYSTAL Thomson Start: 21-Apr-2016 Quantity: 1 10.2 GM Inhaler Refills: 6 Xopenex HFA 45 MCG/ACT Inhalation Aeroso l; INHALE 2 PUFFS EVERY 4 HOURS NEEDED KRYSTAL Thomson Start: 19-Apr-2016 Quantity: 1 15 GM Inhaler Refills: 3 LORazepam 0.5 MG Oral Tablet Start: Quantity: 0.5 Refills: 0 Procedures Procedures not documented Immunizations Immunizations not documented Family History Mother Family history of hypertension (V17.49) (Z82.49) Status: Act charles Family history of asthma (V17.5) (Z82.5) Status: Active Family history of cardiac disorder (V17.49) (Z82.49) Status: Active Family history of pulmonary embolism (V17.49) (Z82.49) Statu s: Active Family history of liver cancer (V16.0) (Z80.0) Status: Activ e Family history of myocardial infarction (V17.3) (Z82.49) Sta tus: Active Father Family history of hypertension (V17.49) (Z82.49) Status: Act charles Family history of cardiac disorder (V17.49) (Z82.49) Status: Active Grandmother Family history of malignant neoplasm of stomach (V16.0) (Z80 .0) Status: Active Grandfather Family history of myocardial infarction (V17.3) (Z82.49) Sta tus: Active Brother Family history of myocardial infarction (V17.3) (Z82.49) Sta tus: Active Social History - Smoking Status Current every day smoker Plan of Treatment Planned Encounters Appointment; aNheed Thomson PA-C Start: 06-Jan-2019 13:30 R equest Planned Observations Planned Goals not documented Results No Known Results Results not documented Encounters Appointment; Naheed Thomson PA-C 08-Jul-2018 13:00 Encounter Diagnosis: Problem not documented Appointment; Naheed Thomson PA-C 28-Jan-2018 13:00 Encounter Diagnosis: Problem not documented Appointment; Naheed Thomson PA-C 31-Jul-2017 14:30 Encounter Diagnosis: Problem not documented Appointment; Naheed Thomson PA-C 24-Jan-2017 14:00 Encounter Diagnosis: Problem not documented Appointment; Naheed Thomson PA-C 06-Jan-2019 13:30 Encounter Diagnosis: Problem not documented
[2019-01-02] MEDS ORDERED: dilTIAZem HCl 5 MG/ML 5 ML VIAL IV STA (02:54)
[2019-01-02 03:14] LABS: Basophils # (auto) 0.05 K/uL (0-0.2); Basophils % (auto) 0.6 %; Eosinophils # (auto) 0.18 K/uL (0-0.5); Eosinophils % (auto) 2.1 %; Hematocrit (blood only) 51.8 % (42-52); Hemoglobin 18.1 g/dL (14.0-18.0); Immature Granulocytes # (auto) 0.01 K/uL (0.00-0.02); Immature Granulocytes % (auto) 0.1 %; Lymphocytes # (auto) 2.53 K/uL (1.2-3.4); Mean Corpuscular Hgb Conc 34.9 g/dL (32-36); Mean Corpuscular Volume 85.5 fL (80-100); Mean Platelet Volume 11.9 fL (7.4-10.4); Neutrophils # (auto) 5.24 K/uL (1.4-6.5); Neutrophils % (auto) 60.2 %; Platelet Count 130 K/uL (130-400); RDW Coefficient of Variation 13.1 % (11.5-14.5); RDW Standard Deviation 40.7 fL (36.4-46.3); Red Blood Count 6.06 M/uL (4.7-6.1); White Blood Count 8.71 K/uL (4.8-10.8)
[2019-01-02 03:25] LABS: Prothrombin Time 10.2 Seconds (9.0-12.0)
[2019-01-02 03:31] LABS: iSTAT Hemoglobin 17.3 g/dl (14.0-18.0); iSTAT Ionized Calcium 1.18 mmol/l (1.12-1.32); iSTAT Potassium 3.9 mEq/L (3.3-5.0)
[2019-01-02 03:33] LABS: Albumin Level 4.3 gm/dl (3.4-5.0); BUN Creatinine Ratio 20.7 (10-20); Calcium 9.4 mg/dl (8.5-10.1); Creatinine Clr Calc Pharmacy 84.5 ml/min; Est GFR (African American) 76.3; Est GFR (Non-African American) 65.9; Potassium 4.1 mmol/L (3.5-5.1)
[2019-01-02 03:40] LABS: Albumin Globulin Ratio 1.2 (0.9-2); Bilirubin,Total 0.5 mg/dl (0.2-1); Creatine Kinase MB 3.9 ng/ml (0.5-3.6); Globulin 3.7 gm/dl (2.5-4.0)
[2019-01-02 03:41] LABS: Troponin I 0.059 ng/ml (0-0.045)
[2019-01-02 04:14] LABS: Partial Thromboplastin Ratio 0.9; Partial Thromboplastin Time 25.7 Seconds (21.0-31.0)
[2019-01-02 04:19] LABS: Magnesium 2.4 mg/dl (1.8-2.4)
--- NOTE | 2019-01-02 04:20 | History & Physical Report ---
Date of Service January 02, 2019 Assessment & Plan (1) Chest pain: Recurrent afib, secondary to missed medication, personal stressors On Eliquis Possible ACS History CAD status post CABG, stent chronic systolic heart failure secondary to ischemic cardiomyopathy EF 30 to 35%, September 2017 Patient euvolemic past history TIA as per records DM 2 insulin requiring, BG is currently elevated Recent outpatient hemoglobin A1c on file was 7.5 last 2012 Hypothyroidism, TSH noted to be elevated ongoing tobacco abuse PCU Continue sotalol for rate/rhythm control Continue aspirin and statin medications for secondary CAD prevention Trend troponin TTE with progression of troponin Cardiology consult RE chest pain Hold Eliquis for now until patient seen by Cardiology; IV heparin if w significant troponin bump Update lipid profile, hemoglobin A1c Basal insulin adjusted for n.p.o. status for possible testing, ISS BG goal 1 40- 1 80 Recheck other TFTs, levothyroxine dose may need adjustment nicotine patch PRN DVT prophylaxis. Resume Eliquis if okay with Cardiology Full code History of Present Illness Chief Complaint: Chest pain Primary Care Provider: Fish Estrella History obtained from patient, family, and records. Medical history significant for chronic systolic heart failure secondary to ischemic cardiomyopathy EF 30 to 35%, September 2017, CAD status post CABG/stenting, A. fib on Eliquis, past history TIA as per records, DM 2 insulin requiring, sleep apnea on CPAP, ongoing tobacco abuse. Recent confinement October 2015 for new onset A. fib. Patient discharged on Sotalol and Coumadin. Coumadin later switched to Eliquis. Last night, patient experience achy substernal discomfort associated with palpitations, shortness of breath symptoms. Some relief with nitroglycerin. Patient burping a lot, denies abdominal pain. Somewhat different from heart attack in the past which presented as right-sided chest pain as per patient. Denies cough, unusual weight gain. Patient missed morning medication yesterday due stress of her father's confinement for heart issues. At the ER, patient noted to be in rapid A. fib. Heart rate in the 120s. Patient received IV Cardizem at the ER. Cardiac rate currently in the 80s. Patient comfortable. Medical History as above Surgical History : CABG Family History : Heart disease Personal/Social history : Half pack daily, no EtOH intake, disabled Allergies Allergy/AdvReac Type Severity Reaction Status Date / Time oxycodone AdvReac Mild DIZZINESS,Upset Verified 01/02/19 03:27 stomach Home Medications Home Medications Medication Instructions Recorded Confirmed Type apixaban [Eliquis] 5 mg PO BID 01/02/19 01/02/19 History aspirin 81 mg PO DAILY 01/02/19 01/02/19 History atorvastatin 80 mg PO DAILY 01/02/19 01/02/19 History empagliflozin 25 mg PO DAILY 01/02/19 01/02/19 History fluoxetine 60 mg PO DAILY 01/02/19 01/02/19 History furosemide [Lasix] 40 mg PO BID 01/02/19 01/02/19 History insulin aspart U-100 [Novolog 40 unit SUBCUT DIRECTED 01/02/19 01/02/19 History U-100 Insulin aspart] insulin aspart U-100 [Novolog 45 unit SUBCUT DIRECTED 01/02/19 01/02/19 History U-100 Insulin aspart] insulin glargine [Lantus Solostar 80 unit SUBCUT QPM 01/02/19 01/02/19 History U-100 Insulin] isosorbide mononitrate 60 mg PO DAILY 01/02/19 01/02/19 History lisinopril 20 mg PO DAILY 01/02/19 01/02/19 History lorazepam 0.5 mg PO Q8H PRN 01/02/19 01/02/19 History nitroglycerin [Nitrostat] 0.4 mg SUBLINGUAL DIRECTED 01/02/19 01/02/19 History potassium chloride 20 meq PO BID 01/02/19 01/02/19 History sotalol 120 mg PO BID 01/02/19 01/02/19 History zolpidem 10 mg PO HS PRN 01/02/19 01/02/19 History Past Med/Surg History Medical History History of TIA (transient ischemic attack) (Acute) CAD (coronary artery disease) (Chronic) Diabetes (Chronic) HTN (hypertension) (Chronic) MAGO (obstructive sleep apnea) (Chronic) Myocardial infarction Surgical History Coronary artery disease involving coronary bypass graft Social History Preferred Language: Ukrainian Communication Ability: Effective 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: No Beliefs That Will Affect Care: None Current Living Situation: Spouse Other Information That Helps Us Care for You: No Feels Safe at Home: Yes Safety Concerns: Feels Safe At This Time Smoking Status: Current every day smoker Tobacco Type: cigarettes Cigarettes Per Day: 10 Do You Dip or Chew Tobacco: No Second Hand Exposure: No Tobacco Cessation Education Requested by Patient: No Hx Alcohol Use: No Hx Substance Use: No Review of Systems Review of Systems: As per HPI, all 10 systems reviewed, all other ROS negative Physical Exam Physical Exam: GENERAL: Comfortable, obese, no respiratory distress SKIN: Normal color, warm HEENT: Bespectacled, pink palpebral conjunctivae, no ptosis, moist buccal mucosa NECK : Supple, short, no tenderness CHEST : CTA, no tenderness HEART : Irregular, no obvious murmurs ABDOMEN: Some distention, nontender EXTREMITIES : No LE swelling/tenderness, no other conspicuous deformities noted NEUROLOGIC : Coherent, no facial asymmetry, no other gross focality Results & Data Vital Signs (Past 12 Hours) Vital Signs Temp Pulse Pulse Resp BP BP Pulse Ox 01/02/19 03:50 83 16 93 01/02/19 03:40 82 23 92 01/02/19 03:31 88 13 91 01/02/19 03:30 85 13 117/82 92 01/02/19 03:26 91 H 87 10 L 124/81 124/81 94 01/02/19 03:20 97 H 17 94 01/02/19 03:17 91 H 14 132/84 91 01/02/19 03:14 125 H 15 163/94 H 96 01/02/19 03:11 115 H 15 155/118 H 97 01/02/19 03:10 122 H 5 L 97 01/02/19 03:02 118 H 17 96 01/02/19 03:01 131 H 15 98 01/02/19 02:50 37.1 C 126 H 18 160/116 H 97 Laboratory Results Laboratory Results WBC 8.71 K/uL (4.8-10.8) 01/02/19 02:58 RBC 6.06 M/uL (4.7-6.1) 01/02/19 02:58 Hgb 18.1 g/dL (14.0-18.0) H 01/02/19 02:58 POC Hgb 17.3 g/dl (14.0-18.0) 01/02/19 03:04 Hct 51.8 % (42-52) 01/02/19 02:58 POC Hct 51 % (42-52) 01/02/19 03:04 MCV 85.5 fL (80-100) 01/02/19 02:58 MCH 29.9 pg (25-34) 01/02/19 02:58 MCHC 34.9 g/dL (32-36) 01/02/19 02:58 RDW Std Deviation 40.7 fL (36.4-46.3) 01/02/19 02:58 RDW Coeff of Leonila 13.1 % (11.5-14.5) 01/02/19 02:58 Plt Count 130 K/uL (130-400) 01/02/19 02:58 MPV 11.9 fL (7.4-10.4) H 01/02/19 02:58 Immature Gran % (Auto) 0.1 % 01/02/19 02:58 Neut % (Auto) 60.2 % 01/02/19 02:58 Lymph % (Auto) 29.0 % 01/02/19 02:58 Barnes % (Auto) 8.0 % 01/02/19 02:58 Eos % (Auto) 2.1 % 01/02/19 02:58 Baso % (Auto) 0.6 % 01/02/19 02:58 Immature Gran # (Auto) 0.01 K/uL (0.00-0.02) 01/02/19 02:58 Neut # (Auto) 5.24 K/uL (1.4-6.5) 01/02/19 02:58 Lymph # (Auto) 2.53 K/uL (1.2-3.4) 01/02/19 02:58 Barnes # (Auto) 0.70 K/uL (0.11-0.59) H 01/02/19 02:58 Eos # (Auto) 0.18 K/uL (0-0.5) 01/02/19 02:58 Baso # (Auto) 0.05 K/uL (0-0.2) 01/02/19 02:58 PT 10.2 Seconds (9.0-12.0) 01/02/19 02:58 INR 1.0 (0.9-1.1) 01/02/19 02:58 APTT 25.7 Seconds (21.0-31.0) 01/02/19 02:58 PTT Ratio 0.9 01/02/19 02:58 POC Sodium 140 mEq/L (135-144) 01/02/19 03:04 Sodium 137 mmol/L (136-145) 01/02/19 02:58 POC Potassium 3.9 mEq/L (3.3-5.0) 01/02/19 03:04 Potassium 4.1 mmol/L (3.5-5.1) 01/02/19 02:58 POC Chloride 103 mEq/L (101-112) 01/02/19 03:04 Chloride 104 mmol/L (98-107) 01/02/19 02:58 Carbon Dioxide 26 mmol/L (21-32) 01/02/19 02:58 POC Total CO2 23 mEq/l (24-31) L 01/02/19 03:04 Anion Gap 7.0 (3-11) 01/02/19 02:58 POC Anion Gap 20.0 mmol/L (16-25) 01/02/19 03:04 POC BUN 29 mg/dl (7-18) H 01/02/19 03:04 BUN 25 mg/dl (7-18) H 01/02/19 02:58 Creatinine 1.22 mg/dl (0.6-1.4) 01/02/19 02:58 POC Creatinine 1.0 mg/dl (0.6-1.3) 01/02/19 03:04 Est Cr Clr Drug Dosing 84.5 ml/min 01/02/19 02:58 Est GFR ( Amer) 76.3 01/02/19 02:58 Est GFR (Non-Af Amer) 65.9 01/02/19 02:58 BUN/Creatinine Ratio 20.7 (10-20) H 01/02/19 02:58 Glucose 222 mg/dl (70-99) H 01/02/19 02:58 POC Glucose (other) 260 mg/dl (70-99) H 01/02/19 03:04 Calcium 9.4 mg/dl (8.5-10.1) 01/02/19 02:58 POC Ioniz Calcium Bobby 1.18 mmol/l (1.12-1.32) 01/02/19 03:04 Magnesium 2.4 mg/dl (1.8-2.4) 01/02/19 02:58 Total Bilirubin 0.5 mg/dl (0.2-1) 01/02/19 02:58 AST 14 U/L (15-37) L 01/02/19 02:58 ALT 33 U/L (12-78) 01/02/19 02:58 Alkaline Phosphatase 104 U/L (45-117) 01/02/19 02:58 Total Creatine Kinase 154 U/L (39-308) 01/02/19 02:58 CK-MB (CK-2) 3.9 ng/ml (0.5-3.6) H 01/02/19 02:58 CK/CKMB % Calc 2.5 (0-3.0) 01/02/19 02:58 POC Troponin I < 0.03 ng/ml (0-0.045) 01/02/19 03:04 Troponin I 0.059 ng/ml (0-0.045) H* 01/02/19 02:58 Total Protein 8.0 gm/dl (6.4-8.2) 01/02/19 02:58 Albumin 4.3 gm/dl (3.4-5.0) 01/02/19 02:58 Globulin 3.7 gm/dl (2.5-4.0) 01/02/19 02:58 Albumin/Globulin Ratio 1.2 (0.9-2) 01/02/19 02:58 Lipase 523 U/L (73-393) H 01/02/19 02:58 TSH 4.720 uIu/ml (0.300-4.500) H 01/02/19 02:58 Diagnostic Findings Chest x-ray as per my interpretation cardiomegaly EKG as per my interpretation : Rate 120, A. fib, normal axis, ST depression la teral leads
[2019-01-02 04:38] LABS: T4 Free Thyroxine 1.36 ng/dl (0.8-1.6)
[2019-01-02] MEDS ORDERED: GLUCOSE 10 TABS/TUBE PO PRN (05:13)
[2019-01-02] MEDS ORDERED: INSULIN GLARGINE SOLOSTAR 100 UNITS/ML 3 ML PEN SQ STA (05:13)
[2019-01-02] MEDS ORDERED: PROMETHAZINE HCL 12.5 MG in SODIUM CHLORIDE 0.9% 50 ML IV PRN (05:13)
[2019-01-02] MEDS ORDERED: ACETAMINOPHEN 325 MG TAB PO PRN (05:13)
[2019-01-02] MEDS ORDERED: GLUCOSE 40% GEL 15 GM TUBE PO PRN (05:13)
[2019-01-02] MEDS ORDERED: NITROGLYCERIN SL 0.4 MG/TAB TAB SL PRN (05:13)
[2019-01-02] MEDS ORDERED: SODIUM CHLORIDE 0.9% 1000ML 1,000 ML IV SCH (05:13)
[2019-01-02] MEDS ORDERED: DEXTROSE 50% 50 ML SYRINGE IV PRN (05:13)
[2019-01-02] MEDS ORDERED: MoRPHine SULFATE 4 MG/ML 1 ML CARP\\VIAL IV PRN (05:13)
[2019-01-02] MEDS ORDERED: GLUCAGON FOR INJ 1 MG VIAL SQ PRN (05:13)
[2019-01-02] MEDS ORDERED: TRAMADOL HCL 50 MG TABLET PO PRN (05:13)
[2019-01-02] MEDS ORDERED: CARBOHYDRATES FOR HYPOGLYCEMIA PO PRN (05:13)
[2019-01-02] MEDS: INSULIN ASPART 100 UNITS/ML 3 ML PEN SC SCH ×4 (05:44→21:34)
[2019-01-02 06:59] LABS: Troponin I 2.69 ng/ml (0-0.045)
[2019-01-02] MEDS ORDERED: Heparin IV Standard *NO* Bolus IV STA (07:04)
--- NOTE | 2019-01-02 07:35 | XRay Report ---
XR chest 1V portable CLINICAL HISTORY: Midsternal chest pain. COMPARISON STUDY: Chest radiograph and chest CT June 13, 2017. FINDINGS: Median sternotomy wires are noted as well as mediastinal surgical clips. Cardiomegaly is un changed. There is no evidence for pulmonary edema. No pneumothorax or pleural effusion is noted. Ther e is no consolidation or evidence for pulmonary edema. Appearance of the chest is unchanged. IMPRESSION: No acute cardiopulmonary findings. No change in appearance of the chest. Electronically signed by: Tim Dahl M.D. 01/02/2019 7:33 AM
[2019-01-02 07:42] LABS: Estimated Average Glucose 206 mg/dl; Hemoglobin A1C 8.8 % (4.5-5.6)
[2019-01-02] MEDS ORDERED: Heparin Adult STANDARD Wt-Based Dextrose 5% 25,000 units/500 mL IV SCH ×2 (08:00→17:00)
[2019-01-02] MEDS ORDERED: PERFLUTREN LIPID MICROSPHERE (DEFINITY) IV ONE (08:07)
[2019-01-02] MEDS: ATORVASTATIN 40 MG TAB PO SCH (08:39)
[2019-01-02] MEDS: SOTALOL HCL 80 MG TAB PO SCH ×2 (08:40→20:25)
[2019-01-02] MEDS: ISOSORBIDE MONO EXTENDED REL 60 MG TABCR PO SCH (08:40)
[2019-01-02] MEDS: ASPIRIN 81 MG ECTAB PO SCH (08:40)
[2019-01-02] MEDS: FLUOXETINE HCL 20 MG CAP PO SCH (08:41)
[2019-01-02] MEDS: LISINOPRIL 20 MG TAB PO SCH (08:41)
--- NOTE | 2019-01-02 08:42 | Hospitalist Progress Note ---
Date of Service January 02, 2019 Assessment & Plan (1) Chest pain: Chest Pain History CAD status post CABG and stent history of ischemic cardiomyopathy EF 30 to 35%, September 2017 Elevated troponins on this admission -Patient reported that prior to hospital presentation on 01/02/19, he was having midsternal chest pain and shortness of breath when he went to bed around 1 AM and took his cardiac medications including Eliquis and Sotalol and symptoms not relieved by CPAP. Patient reports the he was able to to get relief in the Emergency room. Patient currently does not have chest pain. He is breathing on room air. -Patient also found in the ED to be in atrial fibrillation with rapid ventricul ar response. was given IV diltiazem. The patient returned to sinus rhythm by 5:40 AM of 01/02/19 -Heparin drip IV is running because patient made positive troponins (first troponin 0.059. second troponin 2.6), trend troponins, hold Eliquis while on heparin drip -continue home dose aspirin, isosorbide, lisinopril, atorvastatin -home home dose Lasix for now -echocardiogram performed, awaiting cardiology interpretation and consultation recommendations Atrial Fibrillation with rapid ventricular response Paroxysmal atrial fibrillation -Patient also found in the ED to be in atrial fibrillation with rapid ventricular response. was given IV diltiazem. The patient returned to sinus rhythm by 5:40 AM of 01/02/19 -Heparin drip IV is running because patient made positive troponins (first troponin 0.059. second troponin 2.6), trend troponins, hold Eliquis while on heparin drip -continue sotalol BID while awaiting cardiology recommendations Type 2 diabetes mellitus with jail current harrison of insulin -HbA1c is 8.8 -current insulin orders of Lantus is reduced dosing because current NPO status while awaiting cardiology evaluation, sliding scale insulin as needed Tobacco Use -encourage smoking cessation Possible borderline hypothyroidism -TSH elevated as 4.7 however normal t4 -patient should have thyroid n repeated as outpatient past history TIA as per records Full code Maile [phone] Subjective Patient reported that prior to hospital presentation on 01/02/19, he was having midsternal chest pain and shortness of breath when he went to bed around 1 AM and took his cardiac medications including Eliquis and Sotalol and symptoms not relieved by CPAP. Patient reports the he was able to to get relief in the Emergency room. Patient also found in the ED to be in atrial fibrillation with rapid ventricular response. The patient returned to sinus rhythm by 5:40 AM of 01/02/19 Patient currently does not have chest pain. He is breathing on room air. Heparin drip IV is running because patient made positive troponins. no abdomen pain. no vomiting. no swelling of the legs. no dizziness. no headache. no fever. Physical Exam Constitutional: WD/WN, vitals as above Eyes: PERRL, conjunctivae normal, anicteric sclerae EOM intact bilaterally ENMT: external ear and nose normal, oropharynx normal Neck: trachea midline, no thyromegaly normal visual inspection Respiratory: normal respiratory effort, lungs clear to auscultation Cardiovascular: Rate/Rhythm: regular rhythm and + bradycardic Gastrointestinal (Abdomen): normal bowel sounds, soft, nontender, no hepatosplenomegaly Musculoskeletal: no cyanosis or clubbing, extremities motor strength 5/5 Head/Neck/Chest: normocephalic and head atraumatic Neurologic: PERRL, EOMI, accommodation nl, no face palsy, no dysarthria CN' s II-XI intact bilaterally Psychiatric: A+Ox3, euthymic affect Results & Data Vital Signs (Past 12 Hours) Vital Signs Temp Pulse Pulse Pulse Resp BP BP 01/02/19 07:37 36.3 C L 61 17 131/79 01/02/19 07:30 60 17 01/02/19 05:53 58 L 16 01/02/19 05:30 120 H 01/02/19 05:15 36.6 C 88 17 150/89 H 01/02/19 04:59 94 H 16 142/84 H 01/02/19 03:50 83 16 01/02/19 03:40 82 23 01/02/19 03:31 88 13 01/02/19 03:30 85 13 117/82 01/02/19 03:26 91 H 87 10 L 124/81 124/81 01/02/19 03:20 97 H 17 01/02/19 03:17 91 H 14 132/84 01/02/19 03:14 125 H 15 163/94 H 01/02/19 03:11 115 H 15 155/118 H 01/02/19 03:10 122 H 5 L 01/02/19 03:02 118 H 17 01/02/19 03:01 131 H 15 01/02/19 02:50 37.1 C 126 H 18 160/116 H Pulse Ox 01/02/19 07:37 99 01/02/19 07:30 94 01/02/19 05:53 94 01/02/19 05:30 01/02/19 05:15 95 01/02/19 04:59 95 01/02/19 03:50 93 01/02/19 03:40 92 01/02/19 03:31 91 01/02/19 03:30 92 01/02/19 03:26 94 01/02/19 03:20 94 01/02/19 03:17 91 01/02/19 03:14 96 01/02/19 03:11 97 01/02/19 03:10 97 01/02/19 03:02 96 01/02/19 03:01 98 01/02/19 02:50 97
--- NOTE | 2019-01-02 11:54 | Cardiology Consultation ---
Date of Consultation January 02, 2019 Assessment & Plan (1) Atrial fibrillation with RVR: The patient has a history of paroxysmal atrial fibrillation and has been on sotalol and Eliquis with good control. He spontaneously converted to normal sinus. I would continue these medications. (2) Chest pain: Chest pain due to demand ischemia from the atrial fibrillation along with a slight bump in cardiac troponins due to a type II elevation. I think we can stop the IV heparin and place patient back on Eliquis. No additional cardiac testing such as a heart cath or stress test is indicated at this time. The patient can have a diet. (3) Diabetes mellitus type 2 in obese: (4) MAGO (obstructive sleep apnea): (5) History of SC (myocardial infarction): The patient has a history of a previous inferior wall myocardial infarction with an ischemic cardiomyopathy by prior echocardiograms. The echocardiogram completed this admission is unchanged from previous. His estimated left ventricular ejection fraction is around 40%. (6) CAD (coronary artery disease): The patient has a previous history of a right coronary stent placed after an inferior wall myocardial infarction however his most recent heart cath in 2011 indicates occlusion of the right coronary artery and along with his echocardiogram that shows an old inferior wall myocardial infarction the findings are unchanged. The patient is also previously had a coronary artery bypass surgery and a cardiac catheterization 2011 revealed the bypass grafts to be patent. History of Present Illness Attending Physician: Ozzy Pineda MD History of Present Illness This is a 58-year-old male patient with a previous history of an inferior wall myocardial infarction and previous coronary artery bypass surgery. He has been treated for paroxysmal atrial fibrillation with sotalol and Eliquis. His father was in the hospital yesterday and transferred to [facility]. He went home and later on in the evening he felt his heart start to race. He knew the symptoms were from atrial fibrillation. Soon after the start of tachycardia he did develop some chest discomfort and came into the emergency department. His chest pain resolved after he spontaneously converted to normal sinus rhythm. His cardiac markers are slightly elevated after admission. The elevation is most likely the result of demand ischemia. He has no current complaints and is maintaining sinus rhythm. PAST MEDICAL HISTORY: 1. Coronary artery disease status post CABG x3 in 2005 with COELLO to the LAD and vein grafts to OM1 and OM2. 2. Vem-[id number] elevation SC November 2011 with bare metal stent placement to the RCA with most recent cardiac catheterization showing complete occlusion of the RCA with patent grafts and severe port lions vessel disease. 3. Ischemic cardiomyopathy, EF now 40% to 45% per patient per his most recent echocardiogram in [place]. 4. Tobacco abuse. 5. History of TIA. 6. Paroxysmal atrial fibrillation on chronic sotalol and Eliquis. 7. Diabetes. 8. Anxiety. Allergies Allergy/AdvReac Type Severity Reaction Status Date / Time oxycodone AdvReac Mild DIZZINESS,Upset Verified 01/02/19 03:27 stomach Home Medications Home Medications Medication Instructions Recorded Confirmed Type apixaban [Eliquis] 5 mg PO BID 01/02/19 01/02/19 History aspirin 81 mg PO DAILY 01/02/19 01/02/19 History atorvastatin 80 mg PO DAILY 01/02/19 01/02/19 History empagliflozin 25 mg PO DAILY 01/02/19 01/02/19 History fluoxetine 60 mg PO DAILY 01/02/19 01/02/19 History furosemide [Lasix] 40 mg PO BID 01/02/19 01/02/19 History insulin aspart U-100 [Novolog 40 unit SUBCUT DIRECTED 01/02/19 01/02/19 History U-100 Insulin aspart] insulin aspart U-100 [Novolog 45 unit SUBCUT DIRECTED 01/02/19 01/02/19 History U-100 Insulin aspart] insulin glargine [Lantus Solostar 80 unit SUBCUT QPM 01/02/19 01/02/19 History U-100 Insulin] isosorbide mononitrate 60 mg PO DAILY 01/02/19 01/02/19 History lisinopril 20 mg PO DAILY 01/02/19 01/02/19 History lorazepam 0.5 mg PO Q8H PRN 01/02/19 01/02/19 History nitroglycerin [Nitrostat] 0.4 mg SUBLINGUAL DIRECTED 01/02/19 01/02/19 History potassium chloride 20 meq PO BID 01/02/19 01/02/19 History sotalol 120 mg PO BID 01/02/19 01/02/19 History zolpidem 10 mg PO HS PRN 01/02/19 01/02/19 History Patient History Medical History History of TIA (transient ischemic attack) (Acute) CAD (coronary artery disease) (Chronic) Diabetes (Chronic) HTN (hypertension) (Chronic) MAGO (obstructive sleep apnea) (Chronic) Myocardial infarction Surgical History Coronary artery disease involving coronary bypass graft Social History Preferred Language: Vietnamese Communication Ability: Effective Fibre Technologist Required: No Beliefs That Will Affect Care: None Current Living Situation: Spouse Other Information That Helps Us Care for You: No Feels Safe at Home: Yes Safety Concerns: Feels Safe At This Time Smoking Status: Current every day smoker Tobacco Type: cigarettes Cigarettes Per Day: 10 Do You Dip or Chew Tobacco: No Second Hand Exposure: No Tobacco Cessation Education Requested by Patient: No Hx Alcohol Use: No Hx Substance Use: No Review of Systems Review of Systems: All systems reviewed & are unremarkable except as noted in HPI & below No additional Physical Exam Physical Exam: General: no acute distress and stated age Head: normocephalic, no masses, lesions, tenderness or abnormalities Eyes: conjunctiva are pink and non-injected, sclera clear Neck: supple, no adenopathy, no bruits, normal jugular venous pulse, no hepatojugular reflux Chest: normal shape and normal respiratory effort Lungs: clear to auscultation and percussion Cardiac Exam: - regular rate & rhythm, no murmurs gallops or rubs - normal S1, normal S2 Pulses: 2(+) throughout Abdomen: abdomen soft, non-tender, no abnormal masses and no hepatosplenomegaly Musculoskeletal: no gait disturbance, no joint inflammation, no deforming arthritis Extremities: no edema and no cyanosis Neuro: grossly normal exam Results & Data Vital Signs (Past 12 Hours) Vital Signs Temp Pulse Pulse Pulse Resp BP BP 01/02/19 11:30 36.8 C 59 L 17 124/74 01/02/19 08:00 60 01/02/19 07:37 36.3 C L 61 17 131/79 01/02/19 07:30 60 17 01/02/19 05:53 58 L 16 01/02/19 05:30 120 H 01/02/19 05:15 36.6 C 88 17 150/89 H 01/02/19 04:59 94 H 16 142/84 H 01/02/19 03:50 83 16 01/02/19 03:40 82 23 01/02/19 03:31 88 13 01/02/19 03:30 85 13 117/82 01/02/19 03:26 91 H 87 10 L 124/81 124/81 01/02/19 03:20 97 H 17 01/02/19 03:17 91 H 14 132/84 01/02/19 03:14 125 H 15 163/94 H 01/02/19 03:11 115 H 15 155/118 H 01/02/19 03:10 122 H 5 L 01/02/19 03:02 118 H 17 01/02/19 03:01 131 H 15 01/02/19 02:50 37.1 C 126 H 18 160/116 H Pulse Ox 01/02/19 11:30 98 01/02/19 08:00 01/02/19 07:37 99 01/02/19 07:30 94 01/02/19 05:53 94 01/02/19 05:30 01/02/19 05:15 95 01/02/19 04:59 95 01/02/19 03:50 93 01/02/19 03:40 92 01/02/19 03:31 91 01/02/19 03:30 92 01/02/19 03:26 94 01/02/19 03:20 94 01/02/19 03:17 91 01/02/19 03:14 96 01/02/19 03:11 97 01/02/19 03:10 97 01/02/19 03:02 96 01/02/19 03:01 98 01/02/19 02:50 97 Laboratory Results Laboratory Results - last 24 hr 01/02/19 01/02/19 01/02/19 02:58 02:58 02:58 WBC 8.71 RBC 6.06 Hgb 18.1 H POC Hgb Hct 51.8 POC Hct MCV 85.5 MCH 29.9 MCHC 34.9 RDW Std Deviation 40.7 RDW Coeff of Leonila 13.1 Plt Count 130 MPV 11.9 H Immature Gran % (Auto) 0.1 Neut % (Auto) 60.2 Lymph % (Auto) 29.0 Coleman % (Auto) 8.0 Eos % (Auto) 2.1 Baso % (Auto) 0.6 Immature Gran # (Auto) 0.01 Neut # (Auto) 5.24 Lymph # (Auto) 2.53 Coleman # (Auto) 0.70 H Eos # (Auto) 0.18 Baso # (Auto) 0.05 PT 10.2 INR 1.0 APTT PTT Ratio POC Sodium Sodium 137 POC Potassium Potassium 4.1 POC Chloride Chloride 104 Carbon Dioxide 26 POC Total CO2 Anion Gap 7.0 POC Anion Gap POC BUN BUN 25 H Creatinine 1.22 POC Creatinine Est Cr Clr Drug Dosing 84.5 Est GFR ( Amer) 76.3 Est GFR (Non-Af Amer) 65.9 BUN/Creatinine Ratio 20.7 H Glucose 222 H POC Glucose POC Glucose (other) Estimat Average Glucose Hemoglobin A1c Calcium 9.4 POC Ioniz Calcium Bobby Magnesium 2.4 Total Bilirubin 0.5 AST 14 L ALT 33 Alkaline Phosphatase 104 Total Creatine Kinase 154 CK-MB (CK-2) 3.9 H CK/CKMB % Calc 2.5 POC Troponin I Troponin I 0.059 H* Total Protein 8.0 Albumin 4.3 Globulin 3.7 Albumin/Globulin Ratio 1.2 Triglycerides Cholesterol LDL Cholesterol, Calc VLDL Cholesterol, Calc HDL Cholesterol Cholesterol/HDL Ratio Lipase 523 H TSH 4.720 H Free T4 1.36 Total T3 01/02/19 01/02/19 01/02/19 02:58 03:04 03:04 WBC RBC Hgb POC Hgb 17.3 Hct POC Hct 51 MCV MCH MCHC RDW Std Deviation RDW Coeff of Leonila Plt Count MPV Immature Gran % (Auto) Neut % (Auto) Lymph % (Auto) Coleman % (Auto) Eos % (Auto) Baso % (Auto) Immature Gran # (Auto) Neut # (Auto) Lymph # (Auto) Coleman # (Auto) Eos # (Auto) Baso # (Auto) PT INR APTT 25.7 PTT Ratio 0.9 POC Sodium 140 Sodium POC Potassium 3.9 Potassium POC Chloride 103 Chloride Carbon Dioxide POC Total CO2 23 L Anion Gap POC Anion Gap 20.0 POC BUN 29 H BUN Creatinine POC Creatinine 1.0 Est Cr Clr Drug Dosing Est GFR ( Amer) Est GFR (Non-Af Amer) BUN/Creatinine Ratio Glucose POC Glucose POC Glucose (other) 260 H Estimat Average Glucose Hemoglobin A1c Calcium POC Ioniz Calcium Bobby 1.18 Magnesium Total Bilirubin AST ALT Alkaline Phosphatase Total Creatine Kinase CK-MB (CK-2) CK/CKMB % Calc POC Troponin I < 0.03 Troponin I Total Protein Albumin Globulin Albumin/Globulin Ratio Triglycerides Cholesterol LDL Cholesterol, Calc VLDL Cholesterol, Calc HDL Cholesterol Cholesterol/HDL Ratio Lipase TSH Free T4 Total T3 01/02/19 01/02/19 01/02/19 05:41 05:52 05:52 WBC RBC Hgb POC Hgb Hct POC Hct MCV MCH MCHC RDW Std Deviation RDW Coeff of Leonila Plt Count MPV Immature Gran % (Auto) Neut % (Auto) Lymph % (Auto) Coleman % (Auto) Eos % (Auto) Baso % (Auto) Immature Gran # (Auto) Neut # (Auto) Lymph # (Auto) Coleman # (Auto) Eos # (Auto) Baso # (Auto) PT INR APTT PTT Ratio POC Sodium Sodium POC Potassium Potassium POC Chloride Chloride Carbon Dioxide POC Total CO2 Anion Gap POC Anion Gap POC BUN BUN Creatinine POC Creatinine Est Cr Clr Drug Dosing Est GFR ( Amer) Est GFR (Non-Af Amer) BUN/Creatinine Ratio Glucose POC Glucose 220 H POC Glucose (other) Estimat Average Glucose 206 Hemoglobin A1c 8.8 H Calcium POC Ioniz Calcium Bobby Magnesium Total Bilirubin AST ALT Alkaline Phosphatase Total Creatine Kinase CK-MB (CK-2) CK/CKMB % Calc POC Troponin I Troponin I 2.690 H* Total Protein Albumin Globulin Albumin/Globulin Ratio Triglycerides 159 H Cholesterol 112 LDL Cholesterol, Calc 52 VLDL Cholesterol, Calc 32 HDL Cholesterol 28 Cholesterol/HDL Ratio 4 Lipase TSH Free T4 Total T3 01/02/19 01/02/19 01/02/19 07:07 07:07 11:32 WBC RBC Hgb POC Hgb Hct POC Hct MCV MCH MCHC RDW Std Deviation RDW Coeff of Leonila Plt Count MPV Immature Gran % (Auto) Neut % (Auto) Lymph % (Auto) Coleman % (Auto) Eos % (Auto) Baso % (Auto) Immature Gran # (Auto) Neut # (Auto) Lymph # (Auto) Coleman # (Auto) Eos # (Auto) Baso # (Auto) PT INR APTT PTT Ratio POC Sodium Sodium POC Potassium Potassium POC Chloride Chloride Carbon Dioxide POC Total CO2 Anion Gap POC Anion Gap POC BUN BUN Creatinine POC Creatinine Est Cr Clr Drug Dosing Est GFR ( Amer) Est GFR (Non-Af Amer) BUN/Creatinine Ratio Glucose POC Glucose 181 H POC Glucose (other) Estimat Average Glucose Hemoglobin A1c Calcium POC Ioniz Calcium Bobby Magnesium Total Bilirubin AST ALT Alkaline Phosphatase Total Creatine Kinase CK-MB (CK-2) CK/CKMB % Calc POC Troponin I Troponin I Total Protein Albumin Globulin Albumin/Globulin Ratio Triglycerides Cholesterol LDL Cholesterol, Calc VLDL Cholesterol, Calc HDL Cholesterol Cholesterol/HDL Ratio Lipase 394 H TSH Free T4 Total T3 1.06 Medications Administered Current Inpatient Medications Acetaminophen (Tylenol) 650 mg PO Q4H PRN PRN Reason: Pain or Fever Stop: 02/01/19 05:12 Apixaban (Eliquis) 5 mg PO BID DARLENE Stop: 02/01/19 12:14 Aspirin (Ecotrin Ectab) 81 mg PO DAILY DARLEEN Stop: 02/01/19 08:59 Last Admin: 01/02/19 08:40 Dose: 81 mg Documented by: Atorvastatin Calcium (Lipitor) 80 mg PO DAILY DARLEEN Stop: 02/01/19 08:59 Last Admin: 01/02/19 08:39 Dose: 80 mg Documented by: Dextrose (Dextrose 50%) 25 - 50 ml IV UD PRN; Protocol PRN Reason: Hypoglycemia Protocol Stop: 02/01/19 05:12 Fluoxetine HCl (Prozac) 60 mg PO DAILY [facility] Stop: 02/01/19 08:59 Last Admin: 01/02/19 08:41 Dose: 60 mg Documented by: Glucagon (Glucagen) 1 mg SQ UD PRN; Protocol PRN Reason: Hypoglycemia Protocol Stop: 02/01/19 05:12 Glucose (Glucose 40%) 15 - 30 gm PO UD PRN; Protocol PRN Reason: Hypoglycemia Protocol Stop: 02/01/19 05:12 Glucose (Dex4 Glucose) 4 - 8 tabs PO UD PRN; Protocol PRN Reason: Hypoglycemia Protocol Stop: 02/01/19 05:12 Promethazine HCl 12.5 mg/ (Sodium Chloride) 50.5 mls @ 202 mls/hr IV Q6H PRN PRN Reason: Nausea And Vomiting Stop: 02/01/19 05:12 Insulin Aspart (Novolog Flexpen) 0 units SC ACHS DARLEEN Stop: 02/01/19 05:12 Last Admin: 01/02/19 05:44 Dose: 2 units Documented by: Insulin Glargine (Lantus Solostar Pen) 50 units SQ HS [facility] Stop: 02/01/19 20:59 Isosorbide Mononitrate (Imdur Extended Rel) 60 mg PO DAILY DARLEEN Stop: 02/01/19 08:59 Last Admin: 01/02/19 08:40 Dose: 60 mg Documented by: Lisinopril (Zestril) 20 mg PO DAILY [facility] Stop: 02/01/19 08:59 Last Admin: 01/02/19 08:41 Dose: 20 mg Documented by: Lorazepam (Ativan) 0.5 mg PO Q8H PRN PRN Reason: Anxiety Stop: 02/01/19 05:12 Miscellaneous (Carbohydrates For Hypoglycemia) 15 - 30 gm PO UD PRN PRN Reason: Hypoglycemia Treatment Stop: 02/01/19 05:12 Morphine Sulfate (Morphine Sulfate) 4 mg IV Q4H PRN PRN Reason: Pain Stop: 01/16/19 05:12 Nitroglycerin (Nitrostat) 0.4 mg SL UD PRN PRN Reason: Chest Pain Stop: 02/01/19 05:12 Sotalol HCl (Betapace) 120 mg PO BID [facility] Stop: 02/01/19 08:59 Last Admin: 01/02/19 08:40 Dose: 120 mg Documented by: Tramadol HCl (Ultram) 25 - 50 mg PO Q4H PRN PRN Reason: Pain Stop: 02/01/19 05:12
[2019-01-02] MEDS ORDERED: APIXABAN 5 MG TABLET PO SCH (12:15)
[2019-01-02 12:34] LABS: Partial Thromboplastin Ratio 1.5; Partial Thromboplastin Time 41.2 Seconds (21.0-31.0)
[2019-01-02 14:58] LABS: Partial Thromboplastin Time 25.9 Seconds (21.0-31.0)
[2019-01-02] MEDS: LORazepam 0.5 MG TAB PO PRN (20:29)
[2019-01-02] MEDS: INSULIN GLARGINE SOLOSTAR 100 UNITS/ML 3 ML PEN SQ SCH (20:50)
[2019-01-02] MEDS: NICOTINE 14 MG/24 HR PATCH TD SCH (21:29)
[2019-01-02] MEDS: SODIUM CHLORIDE 0.9% 1000ML 1,000 ML IV SCH (23:50)
[2019-01-03 00:45] LABS: Basophils # (auto) 0.02 K/uL (0-0.2); Basophils % (auto) 0.3 %; Eosinophils # (auto) 0.13 K/uL (0-0.5); Eosinophils % (auto) 1.7 %; Hematocrit (blood only) 48.4 % (42-52); Hemoglobin 16.5 g/dL (14.0-18.0); Immature Granulocytes # (auto) 0.01 K/uL (0.00-0.02); Immature Granulocytes % (auto) 0.1 %; Lymphocytes % (auto) 25.6 %; Mean Corpuscular Hgb Conc 34.1 g/dL (32-36); Mean Corpuscular Volume 85.8 fL (80-100); Monocytes # (auto) 0.51 K/uL (0.11-0.59); Monocytes % (auto) 6.5 %; Neutrophils # (auto) 5.14 K/uL (1.4-6.5); Neutrophils % (auto) 65.8 %; Platelet Count 113 K/uL (130-400); RDW Coefficient of Variation 13.1 % (11.5-14.5); Red Blood Count 5.64 M/uL (4.7-6.1); White Blood Count 7.81 K/uL (4.8-10.8)
[2019-01-03 00:56] LABS: INR 1.1 (0.9-1.1); Partial Thromboplastin Ratio 0.9; Partial Thromboplastin Time 24.9 Seconds (21.0-31.0); Prothrombin Time 10.8 Seconds (9.0-12.0)
[2019-01-03] MEDS ORDERED: HEPARIN IV BOLUS 7,000 UNITS in SYRINGE 0 ML IV ONE (01:00)
[2019-01-03] MEDS ORDERED: Heparin Adult STANDARD Wt-Based Dextrose 5% 25,000 units/500 mL IV SCH (01:00)
[2019-01-03] MEDS: Heparin IV Low Dose *NO* Bolus IV SCH (03:28)
[2019-01-03] MEDS ORDERED: Heparin Adult LOW DOSE Wt-Based Dextrose 5% 25,000 units/500 mL IV SCH (03:30)
[2019-01-03 06:56] LABS: Partial Thromboplastin Ratio 1.2; Partial Thromboplastin Time 32.4 Seconds (21.0-31.0)
[2019-01-03] MEDS: INSULIN ASPART 100 UNITS/ML 3 ML PEN SC SCH ×4 (07:56→20:31)
[2019-01-03] MEDS: SOTALOL HCL 80 MG TAB PO SCH ×2 (08:20→20:28)
[2019-01-03] MEDS: ATORVASTATIN 40 MG TAB PO SCH (08:20)
[2019-01-03] MEDS: ISOSORBIDE MONO EXTENDED REL 60 MG TABCR PO SCH (08:20)
[2019-01-03] MEDS: ASPIRIN 81 MG ECTAB PO SCH (08:21)
[2019-01-03] MEDS: LISINOPRIL 20 MG TAB PO SCH (08:21)
[2019-01-03] MEDS: FLUOXETINE HCL 20 MG CAP PO SCH (08:21)
[2019-01-03] MEDS: NICOTINE 14 MG/24 HR PATCH TD SCH ×2 (08:22→20:35)
[2019-01-03] MEDS: SODIUM CHLORIDE 0.9% 1000ML 1,000 ML IV SCH ×3 (08:27→18:51)
--- NOTE | 2019-01-03 08:33 | Emergency Department Note ---
Entered by Lilian Roberts acting as a scribe for Yoshi Santiago MD History of Present Illness General Chief complaint: Chest Pain Stated complaint: CHEST PAIN Time Seen by Provider: 01/02/19 02:45 Source: patient History of Present Illness Provider complaint: chest pain Onset (ago): hour(s) less than 1 Location: chest Pain Consistency: + constant Quality: + sharp Relieved By: + other (nitroglycerin) Exacerbated By: + none Associated symptoms: + denies other symptoms and + other (sweating) Treatments prior to arrival: aspirin and other (nitroglycerin) The patient is a 58 y/o male who presents to the emergency department for constant sharp sub sternal chest pain that began prior to arrival. EMS states that they went to the patients home for sub sternal chest pain, shortness of breath and sweating. He notes the sweating has lasted for 3 days. EMS gave the patient 324 mg of aspirin and 3 nitroglycerins with relief. The patient notes a history of anxiety, myocardial infarctions, bypasss, stents, and atrial fibrillation. Patient denies any other symptoms. Home Medications Home Medications Medication Instructions Recorded Confirmed Type apixaban [Eliquis] 5 mg PO BID 01/02/19 01/02/19 History aspirin 81 mg PO DAILY 01/02/19 01/02/19 History atorvastatin 80 mg PO DAILY 01/02/19 01/02/19 History empagliflozin 25 mg PO DAILY 01/02/19 01/02/19 History fluoxetine 60 mg PO DAILY 01/02/19 01/02/19 History furosemide [Lasix] 40 mg PO BID 01/02/19 01/02/19 History insulin aspart U-100 [Novolog 40 unit SUBCUT DIRECTED 01/02/19 01/02/19 History U-100 Insulin aspart] insulin aspart U-100 [Novolog 45 unit SUBCUT DIRECTED 01/02/19 01/02/19 History U-100 Insulin aspart] insulin glargine [Lantus Solostar 80 unit SUBCUT QPM 01/02/19 01/02/19 History U-100 Insulin] isosorbide mononitrate 60 mg PO DAILY 01/02/19 01/02/19 History lisinopril 20 mg PO DAILY 01/02/19 01/02/19 History lorazepam 0.5 mg PO Q8H PRN 01/02/19 01/02/19 History nitroglycerin [Nitrostat] 0.4 mg SUBLINGUAL DIRECTED 01/02/19 01/02/19 History potassium chloride 20 meq PO BID 01/02/19 01/02/19 History sotalol 120 mg PO BID 01/02/19 01/02/19 History zolpidem 10 mg PO HS PRN 01/02/19 01/02/19 History Allergies Allergy/AdvReac Type Severity Reaction Status Date / Time oxycodone AdvReac Mild DIZZINESS,Upset Verified 01/02/19 03:27 stomach Past Med/Surg History Medical History History of TIA (transient ischemic attack) (Acute) CAD (coronary artery disease) (Chronic) Diabetes (Chronic) HTN (hypertension) (Chronic) MAGO (obstructive sleep apnea) (Chronic) Myocardial infarction Surgical History Coronary artery disease involving coronary bypass graft Social History Preferred Language: Korean Communication Ability: Effective Health Education Aide Required: No Beliefs That Will Affect Care: None Current Living Situation: Spouse Other Information That Helps Us Care for You: No Feels Safe at Home: Yes Safety Concerns: Feels Safe At This Time Smoking Status: Current every day smoker Tobacco Type: cigarettes Cigarettes Per Day: 10 Do You Dip or Chew Tobacco: No Second Hand Exposure: No Tobacco Cessation Education Requested by Patient: No Hx Alcohol Use: No Hx Substance Use: No Review of Systems See HPI for pertinent positives & negatives. and A total of 10 systems reviewed and were otherwise negative Physical Exam Vital Signs Vital Signs - 24 hr 01/02/19 02:50 01/02/19 03:01 01/02/19 03:02 Temperature 98.8 F Temperature Source Oral Sepsis Recent Fever Within 48 Hours No Sepsis Action Taken by Nursing No Action Required Pulse Rate 126 H 131 H 118 H Pulse Rate [Apical] Pulse Rate from SpO2 Sensor 132 H 111 H Respiratory Rate 18 15 17 Respiratory Effort / Characteristics Spontaneous Respiratory Depth Normal Blood Pressure 160/116 H Blood Pressure [Right Arm] Blood Pressure Mean 130 121 Blood Pressure Mean [Right Arm] Pulse Oximetry 97 98 96 Oxygen Delivery Method Room Air 01/02/19 03:07 01/02/19 03:10 01/02/19 03:11 Temperature Temperature Source Sepsis Recent Fever Within 48 Hours Sepsis Action Taken by Nursing Pulse Rate 122 H 115 H Pulse Rate [Apical] Pulse Rate from SpO2 Sensor 130 H 119 H Respiratory Rate 5 L 15 Respiratory Effort / Characteristics Respiratory Depth Blood Pressure 155/118 H Blood Pressure [Right Arm] Blood Pressure Mean 130 Blood Pressure Mean [Right Arm] Pulse Oximetry 97 97 Oxygen Delivery Method Room Air 01/02/19 03:14 01/02/19 03:17 01/02/19 03:20 Temperature Temperature Source Sepsis Recent Fever Within 48 Hours Sepsis Action Taken by Nursing Pulse Rate 125 H 91 H 97 H Pulse Rate [Apical] Pulse Rate from SpO2 Sensor 112 H 98 H 97 H Respiratory Rate 15 14 17 Respiratory Effort / Characteristics Respiratory Depth Blood Pressure 163/94 H 132/84 Blood Pressure [Right Arm] Blood Pressure Mean 117 100 Blood Pressure Mean [Right Arm] Pulse Oximetry 96 91 94 Oxygen Delivery Method 01/02/19 03:26 01/02/19 03:30 01/02/19 03:31 Temperature Temperature Source Sepsis Recent Fever Within 48 Hours Sepsis Action Taken by Nursing Pulse Rate 91 H 85 88 Pulse Rate [Apical] 87 Pulse Rate from SpO2 Sensor 84 85 85 Respiratory Rate 10 L 13 13 Respiratory Effort / Characteristics Respiratory Depth Blood Pressure 124/81 117/82 Blood Pressure [Right Arm] 124/81 Blood Pressure Mean 95 93 Blood Pressure Mean [Right Arm] 95 Pulse Oximetry 94 92 91 Oxygen Delivery Method Room Air 01/02/19 03:40 01/02/19 03:50 Temperature Temperature Source Sepsis Recent Fever Within 48 Hours Sepsis Action Taken by Nursing Pulse Rate 82 83 Pulse Rate [Apical] Pulse Rate from SpO2 Sensor 79 86 Respiratory Rate 23 16 Respiratory Effort / Characteristics Respiratory Depth Blood Pressure Blood Pressure [Right Arm] Blood Pressure Mean Blood Pressure Mean [Right Arm] Pulse Oximetry 92 93 Oxygen Delivery Method GENERAL: Awake, alert, well-appearing, in no acute distress HENT: Normocephalic, atraumatic. Oropharynx unremarkable. EYES: Normal conjunctiva. Sclera non-icteric. NECK: Supple. No nuchal rigidity. FROM. No JVD. RESPIRATORY: Clear to auscultation. CARDIAC: Regular rate, normal rhythm. Extremities warm and well perfused. Pulses equal. ABDOMEN: Soft, non-distended. No tenderness to palpation. No rebound or guarding. No masses. RECTAL: Deferred. MUSCULOSKELETAL: Chest examination reveals no tenderness. The back is symmetrical on inspection without obvious abnormality. There is no CVA tenderness to palpation. No joint edema. LOWER EXTREMITIES: Calves are equal size bilaterally and non-tender. No edema. No discoloration. NEURO: Normal sensorium. No sensory or motor deficits noted. SKIN: No rash or jaundice noted. GENERAL: Awake, alert, well-appearing, in no acute distress. diaphoretic on examination. HENT: Normocephalic, atraumatic. Oropharynx unremarkable. EYES: Normal conjunctiva. Sclera non-icteric. NECK: Supple. No nuchal rigidity. FROM. No JVD. RESPIRATORY: Clear to auscultation. CARDIAC: Regular rate, normal rhythm. Extremities warm and well perfused. Pulses equal. ABDOMEN: Soft, non-distended. No tenderness to palpation. No rebound or guarding. No masses. RECTAL: Deferred. MUSCULOSKELETAL: Chest examination reveals no tenderness. The back is symmetr ical on inspection without obvious abnormality. There is no CVA tenderness to palpation. No joint edema. LOWER EXTREMITIES: Calves are equal size bilaterally and non-tender. No edema. No discoloration. NEURO: Normal sensorium. No sensory or motor deficits noted. SKIN: No rash or jaundice noted. Course 0246: Past medical records reviewed. The patient was evaluated in room B03B. A complete history and physical exam was performed. 0332: I spoke with Dr. Sammi CAAL hospitalist regarding the patient. 0334: I spoke with Dr. Barone hospitalist, regarding the patient he will evaluate for further management. Administered Medications Aspirin (Ecotrin Ectab) 81 mg PO DAILY [facility] Stop: 02/01/19 08:59 Last Admin: 01/03/19 08:21 Dose: 81 mg Documented by: [id number] Admin: 01/02/19 08:40 Dose: 81 mg Documented by: [id number] Atorvastatin Calcium (Lipitor) 80 mg PO DAILY [facility] Stop: 02/01/19 08:59 Last Admin: 01/03/19 08:20 Dose: 80 mg Documented by: [id number] Admin: 01/02/19 08:39 Dose: 80 mg Documented by: [id number] Fluoxetine HCl (Prozac) 60 mg PO DAILY [facility] Stop: 02/01/19 08:59 Last Admin: 01/03/19 08:21 Dose: 60 mg Documented by: [id number] Admin: 01/02/19 08:41 Dose: 60 mg Documented by: [id number] Sodium Chloride (Nss 1000ml) 1,000 mls @ 112 mls/hr IV .[id number] [facility] Stop: 02/02/19 00:00 Last Admin: 01/03/19 08:27 Dose: 112 mls/hr Documented by: [id number] Infusion: 01/03/19 08:27 Dose: 112 mls/hr Documented by: [id number] Admin: 01/02/19 23:50 Dose: 112 mls/hr Documented by: [id number] Insulin Aspart (Novolog Flexpen) 0 units SC ACHS [facility] Stop: 02/01/19 05:12 Last Admin: 01/03/19 07:56 Dose: Not Given Documented by: [id number] Cosigned by: [id number] Admin: 01/02/19 21:34 Dose: Not Given Documented by: [id number] Cosigned by: [id number] Admin: 01/02/19 17:20 Dose: 4 units Documented by: [id number] Cosigned by: [id number] Admin: 01/02/19 13:08 Dose: 3 units Documented by: [id number] Cosigned by: [id number] Admin: 01/02/19 05:44 Dose: 2 units Documented by: [id number] Cosigned by: [id number] Insulin Glargine (Lantus Solostar Pen) 50 units SQ HS [facility] Stop: 02/01/19 20:59 Last Admin: 01/02/19 20:50 Dose: 50 units Documented by: [id number] Cosigned by: [id number] Isosorbide Mononitrate (Imdur Extended Rel) 60 mg PO DAILY [facility] Stop: 02/01/19 08:59 Last Admin: 01/03/19 08:20 Dose: 60 mg Documented by: [id number] Admin: 01/02/19 08:40 Dose: 60 mg Documented by: [id number] Lisinopril (Zestril) 20 mg PO DAILY [facility] Stop: 02/01/19 08:59 Last Admin: 01/03/19 08:21 Dose: 20 mg Documented by: [id number] Admin: 01/02/19 08:41 Dose: 20 mg Documented by: [id number] Lorazepam (Ativan) 0.5 mg PO Q8H PRN PRN Reason: Anxiety Stop: 02/01/19 05:12 Last Admin: 01/02/19 20:29 Dose: 0.5 mg Documented by: [id number] Miscellaneous (Remove Nicoderm Patch) 1 ea N/A HS PRN PRN Reason: Insomnia Stop: 02/01/19 20:59 Last Admin: 01/03/19 03:46 Dose: 1 ea Documented by: [id number] Nicotine (Nicoderm Cq) 14 mg TD QAM [facility] Stop: 02/01/19 20:39 Last Admin: 01/03/19 08:22 Dose: Not Given Documented by: [id number] Admin: 01/02/19 21:29 Dose: 14 mg Documented by: [id number] Sotalol HCl (Betapace) 120 mg PO BID [facility] Stop: 02/01/19 08:59 Last Admin: 01/03/19 08:20 Dose: 120 mg Documented by: [id number] Admin: 01/02/19 20:25 Dose: 120 mg Documented by: [id number] Admin: 01/02/19 08:40 Dose: 120 mg Documented by: [id number] Discontinued Medications Apixaban (Eliquis) 5 mg PO BID [facility] Stop: 02/01/19 12:14 Last Admin: 01/02/19 12:29 Dose: 5 mg Documented by: [id number] Diltiazem HCl (Cardizem) 25 mg IV NOW STA Stop: 01/02/19 02:55 Last Admin: 01/02/19 03:10 Dose: 25 mg Documented by: [id number] Cosigned by: [id number] Heparin Sodium/Dextrose () 1 ea IV NOW STA; Protocol Stop: 01/02/19 07:05 Last Admin: 01/02/19 08:19 Dose: Not Given Documented by: [id number] Heparin Sodium/Dextrose () 1 ea IV Q15M [facility]; Protocol Stop: 02/02/19 03:07 Last Admin: 01/03/19 03:28 Dose: Not Given Documented by: [id number] Admin: 01/03/19 03:28 Dose: Not Given Documented by: [id number] Sodium Chloride (Nss 1000ml) 1,000 mls @ 40 mls/hr IV .Q24H [facility] Stop: 02/01/19 05:12 Last Infusion: 01/02/19 08:27 Dose: 0 mls/hr Documented by: [id number] Admin: 01/02/19 05:33 Dose: 40 mls/hr Documented by: [id number] Heparin Sodium/Dextrose (Heparin Sodium/Dextrose) 25,000 units in 500 mls @ 32 mls/hr IV .[id number] [facility]; Protocol Stop: 02/01/19 07:59 Last Titration: 01/02/19 12:19 Dose: 0 units/hr, 0 mls/hr Documented by: [id number] Cosigned by: [id number] Admin: 01/02/19 08:24 Dose: 1,600 units/hr, 32 mls/hr Documented by: [id number] Cosigned by: [id number] Heparin Sodium/Dextrose (Heparin Sodium/Dextrose) 25,000 units in 500 mls @ 32 mls/hr IV .[id number] [facility]; Protocol Stop: 02/02/19 00:59 Last Admin: 01/03/19 03:17 Dose: Not Given Documented by: [id number] Heparin Sodium (Porcine) 7,000 (units/ Syringe) 7 mls @ 10 mls/min IV NOW ONE Stop: 01/03/19 01:01 Last Admin: 01/03/19 03:16 Dose: Not Given Documented by: [id number] Heparin Sodium/Dextrose (Heparin Sodium/Dextrose) 25,000 units in 500 mls @ 20 mls/hr IV .Q24H [facility]; Protocol Stop: 02/02/19 03:29 Last Titration: 01/03/19 07:56 Dose: 0 units/hr, 0 mls/hr Documented by: [id number] Cosigned by: [id number] Titration: 01/03/19 07:06 Dose: 1,000 units/hr, 20 mls/hr Documented by: [id number] Cosigned by: [id number] Admin: 01/03/19 03:27 Dose: 1,000 units/hr, 20 mls/hr Documented by: [id number] Cosigned by: [id number] Insulin Glargine (Lantus Solostar Pen) 5 units SQ NOW STA Stop: 01/02/19 05:14 Last Admin: 01/02/19 05:43 Dose: 5 units Documented by: [id number] Cosigned by: [id number] Perflutren Lipid Microsphere (Definity) 2 ml IV ONCE ONE Stop: 01/02/19 08:08 Last Admin: 01/02/19 08:08 Dose: 2 ml Documented by: [id number] Medical Decision Making Differential Diagnosis the differential was considered includes acute myocardial infarction, acute coronary syndrome, myocarditis, pericarditis, pericardial effusions /tamponad, esophageal perforation, thoracic aortic dissection, pulmonary embolism, pneumonia, pneumothorax, pancreatitis, shingles, acute cholecystitis, perforated abdominal viscus. Medical Records Attestation: I reviewed the patient's medical records. Home Medications Current Medication List: was personally reviewed by me Laboratory Data Attestation: I reviewed the patient's lab results. Result diagrams: 01/03/19 00:31 01/02/19 02:58 Lab Results 01/02/19 01/02/19 01/02/19 Range/Units 02:58 02:58 02:58 WBC 8.71 (4.8-10.8) K/uL RBC 6.06 (4.7-6.1) M/uL Hgb 18.1 H (14.0-18.0) g/dL POC Hgb (14.0-18.0) g/dl Hct 51.8 (42-52) % POC Hct (42-52) % MCV 85.5 (80-100) fL MCH 29.9 (25-34) pg MCHC 34.9 (32-36) g/dL RDW Std Deviation 40.7 (36.4-46.3) fL RDW Coeff of Leonila 13.1 (11.5-14.5) % Plt Count 130 (130-400) K/uL MPV 11.9 H (7.4-10.4) fL Immature Gran % (Auto) 0.1 % Neut % (Auto) 60.2 % Lymph % (Auto) 29.0 % Nobles % (Auto) 8.0 % Eos % (Auto) 2.1 % Baso % (Auto) 0.6 % Immature Gran # (Auto) 0.01 (0.00-0.02) K/uL Neut # (Auto) 5.24 (1.4-6.5) K/uL Lymph # (Auto) 2.53 (1.2-3.4) K/uL Nobles # (Auto) 0.70 H (0.11-0.59) K/uL Eos # (Auto) 0.18 (0-0.5) K/uL Baso # (Auto) 0.05 (0-0.2) K/uL PT 10.2 (9.0-12.0) Seconds INR 1.0 (0.9-1.1) APTT (21.0-31.0) Seconds PTT Ratio POC Sodium (135-144) mEq/L Sodium 137 (136-145) mmol/L POC Potassium (3.3-5.0) mEq/L Potassium 4.1 (3.5-5.1) mmol/L POC Chloride (101-112) mEq/L Chloride 104 (98-107) mmol/L Carbon Dioxide 26 (21-32) mmol/L POC Total CO2 (24-31) mEq/l Anion Gap 7.0 (3-11) POC Anion Gap (16-25) mmol/L POC BUN (7-18) mg/dl BUN 25 H (7-18) mg/dl Creatinine 1.22 (0.6-1.4) mg/dl POC Creatinine (0.6-1.3) mg/dl Est Cr Clr Drug Dosing 84.5 ml/min Est GFR ( Amer) 76.3 Est GFR (Non-Af Amer) 65.9 BUN/Creatinine Ratio 20.7 H (10-20) Glucose 222 H (70-99) mg/dl POC Glucose (other) (70-99) mg/dl Calcium 9.4 (8.5-10.1) mg/dl POC Ioniz Calcium Bobby (1.12-1.32) mmol/l Magnesium 2.4 (1.8-2.4) mg/dl Total Bilirubin 0.5 (0.2-1) mg/dl AST 14 L (15-37) U/L ALT 33 (12-78) U/L Alkaline Phosphatase 104 (45-117) U/L Total Creatine Kinase 154 (39-308) U/L CK-MB (CK-2) 3.9 H (0.5-3.6) ng/ml CK/CKMB % Calc 2.5 (0-3.0) POC Troponin I (0-0.045) ng/ml Troponin I 0.059 H* (0-0.045) ng/ml Total Protein 8.0 (6.4-8.2) gm/dl Albumin 4.3 (3.4-5.0) gm/dl Globulin 3.7 (2.5-4.0) gm/dl Albumin/Globulin Ratio 1.2 (0.9-2) Lipase 523 H (73-393) U/L TSH 4.720 H (0.300-4.500) uIu/ml Free T4 1.36 (0.8-1.6) ng/dl 01/02/19 01/02/19 01/02/19 Range/Units 02:58 03:04 03:04 WBC (4.8-10.8) K/uL RBC (4.7-6.1) M/uL Hgb (14.0-18.0) g/dL POC Hgb 17.3 (14.0-18.0) g/dl Hct (42-52) % POC Hct 51 (42-52) % MCV (80-100) fL MCH (25-34) pg MCHC (32-36) g/dL RDW Std Deviation (36.4-46.3) fL RDW Coeff of Leonila (11.5-14.5) % Plt Count (130-400) K/uL MPV (7.4-10.4) fL Immature Gran % (Auto) % Neut % (Auto) % Lymph % (Auto) % Nobles % (Auto) % Eos % (Auto) % Baso % (Auto) % Immature Gran # (Auto) (0.00-0.02) K/uL Neut # (Auto) (1.4-6.5) K/uL Lymph # (Auto) (1.2-3.4) K/uL Nobles # (Auto) (0.11-0.59) K/uL Eos # (Auto) (0-0.5) K/uL Baso # (Auto) (0-0.2) K/uL PT (9.0-12.0) Seconds INR (0.9-1.1) APTT 25.7 (21.0-31.0) Seconds PTT Ratio 0.9 POC Sodium 140 (135-144) mEq/L Sodium (136-145) mmol/L POC Potassium 3.9 (3.3-5.0) mEq/L Potassium (3.5-5.1) mmol/L POC Chloride 103 (101-112) mEq/L Chloride (98-107) mmol/L Carbon Dioxide (21-32) mmol/L POC Total CO2 23 L (24-31) mEq/l Anion Gap (3-11) POC Anion Gap 20.0 (16-25) mmol/L POC BUN 29 H (7-18) mg/dl BUN (7-18) mg/dl Creatinine (0.6-1.4) mg/dl POC Creatinine 1.0 (0.6-1.3) mg/dl Est Cr Clr Drug Dosing ml/min Est GFR ( Amer) Est GFR (Non-Af Amer) BUN/Creatinine Ratio (10-20) Glucose (70-99) mg/dl POC Glucose (other) 260 H (70-99) mg/dl Calcium (8.5-10.1) mg/dl POC Ioniz Calcium Bobby 1.18 (1.12-1.32) mmol/l Magnesium (1.8-2.4) mg/dl Total Bilirubin (0.2-1) mg/dl AST (15-37) U/L ALT (12-78) U/L Alkaline Phosphatase (45-117) U/L Total Creatine Kinase (39-308) U/L CK-MB (CK-2) (0.5-3.6) ng/ml CK/CKMB % Calc (0-3.0) POC Troponin I < 0.03 (0-0.045) ng/ml Troponin I (0-0.045) ng/ml Total Protein (6.4-8.2) gm/dl Albumin (3.4-5.0) gm/dl Globulin (2.5-4.0) gm/dl Albumin/Globulin Ratio (0.9-2) Lipase (73-393) U/L TSH (0.300-4.500) uIu/ml Free T4 (0.8-1.6) ng/dl Imaging Data Attestation: I personally reviewed and interpreted this imaging study as follows: My Impression: One view chest x-ray was interpreted by me and shows no evidence of congestions, pneumothorax, or pneumonia. Sternotomy changes noted. ECG Data Attestation: I personally reviewed and interpreted this ECG as follows: Indication: chest pain Rate (beats per minute): 121 Rhythm: atrial fibrillation Findings: + other (RVR) and + ST elevation (in lateral lead) Change: no significant change Blood Pressure Blood Pressure Findings: Elevated blood pressure Blood Pressure Disposition: further management by hospitalist MDM Narrative This is a 58-year-old male who presents the emergency department diaphoretic with a high heart rate. EKG is unchanged from previous EKGs however the patient has a significant coronary history. He was given Nitropaste here in the emergency department. Because of the patient's high heart rate he was given Cardizem. Repeat examination revealed improvement patient's symptoms. Due to the patient's significant medical history I did discuss the case with the hospitalist service who agreed to admit the patient. Patient was in agreement with the treatment plan. Impression & Plan Chest pain, Atrial fibrillation with RVR, CAD (coronary artery disease) Critical Care Time I have personally spent greater than 30 minutes of critical care time in the direct management of this patient. This includes bedside care, interpretation of diagnostic studies, and testing, discussion with consultants, patient, and family members, and other required patient management activities. This 30 minut es is in excess of all separately billable procedures. Discharge Plan Visit Data *Final* Discharge Date/Time: 01/02/19 04:59 Chief Complaint: Chest Pain Stated Complaint: CHEST PAIN ED Provider: Yoshi Santiago Discharge Problem: Chest pain, Atrial fibrillation with RVR, CAD (coronary artery disease) Patient Disposition: Admitted As Inpatient Discharge Instructions Interventions: ED Discharge Assessment Last Done: 01/02/19 04:59 Discharge Problem: Chest pain Qualifiers: Chest pain type: unspecified Qualified Code(s): R07.9 - Chest pain, unspecified CAD (coronary artery disease) Qualifiers: Coronary Disease-Associated Artery/Lesion type: unspecified vessel or lesion type [place] vs. transplanted heart: minto heart Associated angina: angina presence unspecified Qualified Code(s): I25.10 - Atherosclerotic heart disease of minto coronary artery without angina pectoris The scribe's documentation has been prepared under my direction and personally reviewed by me in its entirety. I confirm that the note above accurately reflects all work, treatment, procedures, and medical decision making performed by me.
--- NOTE | 2019-01-03 15:26 | Hospitalist Progress Note ---
Date of Service January 03, 2019 Assessment & Plan (1) Chest pain: Chest Pain History CAD status post CABG and stent history of ischemic cardiomyopathy EF 30 to 35%, September 2017 Elevated troponins on this admission and suspected Non ST elevation myocardial infraction -Patient reported that prior to hospital presentation on 01/02/19, he was having midsternal chest pain and shortness of breath when he went to bed around 1 AM and took his cardiac medications including Eliquis and Sotalol and symptoms not relieved by CPAP. Patient reports the he was able to to get relief in the Emergency room. Patient currently does not have chest pain. He is breathing on room air. -Patient also found in the ED to be in atrial fibrillation with rapid ventricular response. was given IV diltiazem. The patient returned to sinus rhythm by 5:40 AM of 01/02/19. patient then was transitioned from heparin drip ba ck to Eliquis -chest pain resolved with control of heart rate and rhythm however the troponins on 01/03/19 increased to above 7. Heparin drip was resumed at 1 AM on 01/03/19 with cardiology service plans on performing cardiac cath on 01/03/[address] to rule out [address] ST elevation myocardial infraction Atrial Fibrillation with rapid ventricular response Paroxysmal atrial fibrillation -Patient also found in the ED to be in atrial fibrillation with rapid ventricular response. was given IV diltiazem. The patient returned to sinus rhythm by 5:40 AM of 01/02/19 -is anticoagulated with heparin held while awaiting cardiac cath -continue sotalol BID Type 2 diabetes mellitus with retirement current harrison of insulin -HbA1c is 8.8 -current insulin orders of Lantus is reduced home dosing because current NPO status while awaiting cardiology cath, sliding scale insulin as needed Tobacco Use -encourage smoking cessation Possible borderline hypothyroidism -TSH elevated as 4.7 however normal t4 -patient should have thyroid function repeated as outpatient past history TIA as per records Full code Maile [phone] Subjective Patient awaiting cardiac cath procedure. no chest pain. no shortness of breath. no abdomen pain. no vomiting. no headache. no dizziness Physical Exam Constitutional: WD/WN, vitals as above Eyes: PERRL, conjunctivae normal, anicteric sclerae EOM intact bilaterally ENMT: external ear and nose normal, oropharynx normal Neck: trachea midline, no thyromegaly normal visual inspection Respiratory: normal respiratory effort, lungs clear to auscultation Cardiovascular: Rate/Rhythm: regular rhythm and + bradycardic Gastrointestinal (Abdomen): normal bowel sounds, soft, nontender, no hepatosplenomegaly Musculoskeletal: no cyanosis or clubbing, extremities motor strength 5/5 Head/Neck/Chest: normocephalic and head atraumatic Neurologic: PERRL, EOMI, accommodation nl, no face palsy, no dysarthria CN's II-XI intact bilaterally Psychiatric: A+Ox3, euthymic affect Results & Data Vital Signs (Past 12 Hours) Vital Signs Temp Pulse Resp BP Pulse Ox 01/03/19 11:35 36.8 C 48 L 17 130/71 97 01/03/19 08:04 36.6 C 50 L 16 146/93 H 97 (1) Chest pain Chest pain type: unspecified Qualified Code(s): R07.9 - Chest pain, unspecified
[2019-01-03] MEDS ORDERED: NiCARDipine HCL INJ 2.5 MG/ML 10 ML AMP ONE (15:33)
[2019-01-03] MEDS ORDERED: fentaNYL citrate 100 MCG/2 ML VIAL ONE (15:33)
[2019-01-03] MEDS ORDERED: HEPARIN (PORCINE) 1000 UNIT/ML 10 ML (CATH LAB USE ONLY) ONE (15:33)
[2019-01-03] MEDS ORDERED: MIDAZOLAM HCL 1 MG/ML 2ML VIAL ONE (15:33)
[2019-01-03] MEDS ORDERED: NITROGLYCERIN/D5W 100MCG/ML 20ML SYR ONE (15:34)
[2019-01-03] MEDS ORDERED: LIDOCAINE HCL 1% 20 ML VIAL ONE (16:15)
--- NOTE | 2019-01-03 17:03 | Cardiac Catheterization ---
Date of Service January 03, 2019 [place] [address] Cardiac Catheterization Signed with Tabitha Patient: JAYLAN FRENCH AAdmit Date: 12/23/18 MR#: [id number] Phy: Jag Mackenzie MD Acct ID:[id number] Phy: Deshawn Truong MD Date: 04/21/1968Fam Phy: Age: 50Location: 2W Sex: M Room/Bed: [facility] cc: Frank Carter, ~ *NOTICE TO RECEIVING REPUBLICAN/AGENCY This information is strictly Confidential and protected under [place] law. [place] law prohibits you from making any further disclosure of this information unless further disclosure is expressly permitted by the written consent of the person to whom it pertains or is authorized by law. A general authorization for the release of medical or other information is not sufficient for this purpose. Hospital accepts no responsibility if the information is made available to any other person, INCLUDING THE PATIENT. ADDENDUM Addendum (Blank) Addendum January 03, 2019 16:59 [facility] data: Start time 1602 End time 1636 Opening aortic pressure 127/66 Closing aortic pressure 141/72 LV pressurevalve not crossed Sedation 2 mg intravenous Versed IV fluid 19 cc normal saline Contrast 99 cc Optiray Fluoroscopy time 6 minutes and 6 seconds Radiation 1131 mGy DAP 7606 mGy/m Right dominant system AUC score 9 Addendum Signed By: <Electronically signed by Frank Carter DO>01/03/191700 Addendum Cosigned By: Created: 01/03/1906/12/1701 Date of Service January 03, 2019 Cardiac Cath Report Cardiac Cath Report Procedure: 1. Coronary angiography 2. Aortography History: This is a 50-year-old male patient with a previous history of coronary interventions and coronary artery bypass surgery. His previous cardiac catheterization revealed an occluded right coronary artery as well as the LAD and circumflex arteries proximally. His SARAH graft to the LAD was patent and the saphenous vein graft to the left circumflex artery was patent. He presented with atrial fibrillation with RVR converting spontaneously to sinus rhythm. He had an elevation in his cardiac troponins to 7. Procedure summary: After informed consent was obtained the patient was taken to the cardiac catheterization lab where he was prepped and draped in the usual manner for a transfemoral approach. An attempt was made to access the right femoral artery however, the wire would not advance and therefore the site was abandoned. [place] was then obtained from the left femoral artery with success. Preformed 5 Bengali diagnostic catheters were utilized for the coronary angiograms. A pigtail catheter was utilized for the aortogram. The arterial site was closed using the Mynx device. The patient was returned to his room in stable condition. Coronary angiography: Selective injections of the right coronary artery revealed to be occluded in its mid segment. Selective injections of the left coronary artery reveal occlusion of the LAD proximally as well as the left circumflex artery. The saphenous vein graft to the left circumflex artery is occluded. The SARAH graft to the LAD is patent with a 60% stenosis just distal to the anastomosis site. The SARAH graft supplies good antegrade and retrograde flow to the LAD as well as the distal right coronary artery and left circumflex arteries by collaterals. Aortography: Selective injections into the a sending aorta fails to reveal any evidence of the prior saphenous vein graft. Summary: The patient has severe [place] vessel coronary artery disease with total occlusio ns of the proximal LAD and left circumflex artery as well as occlusion of the mid right coronary artery. The saphenous vein graft to the left circumflex artery is occluded. The SARAH graft to the LAD is patent with a 60% stenosis just after the anastomotic site. The SARAH graft supplies both the LAD as well as right coronary and left circumflex arteries by collaterals. Recommendations: Recommendations at this time are for continued medical management of the patient's coronary artery disease.
[2019-01-03] MEDS: LORazepam 0.5 MG TAB PO PRN (18:23)
[2019-01-03] MEDS ORDERED: Nursing to Pharmacy Communication ONE ×2 (18:25→18:35)
[2019-01-03] MEDS ORDERED: SODIUM CHLORIDE 0.9% 500 ML IV SCH (18:45)
--- NOTE | 2019-01-03 20:15 | Cardiac Catheterization ---
Date of Service January 03, 2019 Cardiac Cath Report Cardiac Cath Report Procedure: 1. Coronary angiography 2. Aortography History: This is a 58-year-old male patient with a previous history of coronary interventions and coronary artery bypass surgery. His previous cardiac catheterization revealed an occluded right coronary artery as well as the LAD and circumflex arteries proximally. His SARAH graft to the LAD was patent and the saphenous vein graft to the left circumflex artery was patent. He presented with atrial fibrillation with RVR converting spontaneously to sinus rhythm. He had an elevation in his cardiac troponins to 7. Procedure summary: After informed consent was obtained the patient was taken to the cardiac catheterization lab where he was prepped and draped in the usual manner for a transfemoral approach. An attempt was made to access the right femoral artery however, the wire would not advance and therefore the site was abandoned. [place] was then obtained from the left femoral artery with success. Preformed 5 [place]i diagnostic catheters were utilized for the coronary angiograms. A pigtail catheter was utilized for the aortogram. The arterial site was closed using the Mynx device. The patient was returned to his room in stable condition. [facility] data: Start time 1602 End time 1636 Opening aortic pressure 127/66 Closing aortic pressure 141/72 LV pressurevalve not crossed Sedation 2 mg intravenous Versed IV fluid 19 cc normal saline Contrast 99 cc Optiray Fluoroscopy time 6 minutes and 6 seconds Radiation 1131 mGy DAP 7606 mGy/m Right dominant system AUC score 9 Coronary angiography: Selective injections of the right coronary artery revealed to be occluded in its mid segment. Selective injections of the left coronary artery reveal occlusion of the LAD proximally as well as the left circumflex artery. The saphenous vein graft to the left circumflex artery is occluded. The SARAH graft to the LAD is patent with a 60% stenosis just distal to the anastomosis site. The SARAH graft supplies good antegrade and retrograde flow to the LAD as well as the distal right coronary artery and left circumflex arteries by collaterals. Aortography: Selective injections into the a sending aorta fails to reveal any evidence of the prior saphenous vein graft. Summary: The patient has severe [place] vessel coronary artery disease with total occlusions of the proximal LAD and left circumflex artery as well as occlusion of the mid right coronary artery. The saphenous vein graft to the left circumflex artery is occluded. The SARAH graft to the LAD is patent with a 60% stenosis just after the anastomotic site. The SARAH graft supplies both the LAD a s well as right coronary and left circumflex arteries by collaterals. Recommendations: Recommendations at this time are for continued medical management of the patient's coronary artery disease.
[2019-01-03] MEDS: INSULIN GLARGINE SOLOSTAR 100 UNITS/ML 3 ML PEN SQ SCH (20:33)
[2019-01-04] MEDS: INSULIN ASPART 100 UNITS/ML 3 ML PEN SC SCH (08:24)
[2019-01-04] MEDS: SOTALOL HCL 80 MG TAB PO SCH (08:29)
[2019-01-04] MEDS: ASPIRIN 81 MG ECTAB PO SCH (08:30)
[2019-01-04] MEDS: ISOSORBIDE MONO EXTENDED REL 60 MG TABCR PO SCH (08:30)
[2019-01-04] MEDS: ATORVASTATIN 40 MG TAB PO SCH (08:31)
[2019-01-04] MEDS: FLUOXETINE HCL 20 MG CAP PO SCH (08:31)
[2019-01-04] MEDS: LISINOPRIL 20 MG TAB PO SCH (08:31)
[2019-01-04 08:35] LABS: Hemoglobin 15.3 g/dL (14.0-18.0); Mean Corpuscular Volume 86.2 fL (80-100); Mean Platelet Volume 11.2 fL (7.4-10.4); Platelet Count 105 K/uL (130-400); RDW Coefficient of Variation 12.8 % (11.5-14.5); RDW Standard Deviation 40.3 fL (36.4-46.3); Red Blood Count 5.22 M/uL (4.7-6.1)
--- NOTE | 2019-01-04 08:48 | Cardiology Progress Note ---
Date of Service January 04, 2019 Assessment & Plan (1) Atrial fibrillation with RVR: The patient is maintaining sinus rhythm and should continue with sotalol after discharge. I have asked the patient to hold his Eliquis until tomorrow to reduce the likelihood of bleeding complications after his heart catheterization. He will then resume his normal dose. (2) Chest pain: The rapid heart rate created by atrial fibrillation resulted in the patient having angina and a non-STEMI. His cardiac catheterization yesterday reveals severe [place] coronary artery disease with occlusions of the right coronary, left circumflex and LAD. His only remaining bypass graft is the COELLO to the LAD with the [place] LAD being diseased after the anastomotic site. There are collaterals to the distal right coronary artery and left circumflex artery from the LAD so essentially he is living on his solitary COELLO graft. (3) Diabetes mellitus type 2 in obese: (4) MAGO (obstructive sleep apnea): (5) History of ID (myocardial infarction): The patient has a history of a previous inferior wall myocardial infarction with an ischemic cardiomyopathy by prior echocardiograms. The echocardiogram completed this admission is unchanged from previous. His estimated left ventricular ejection fraction is around 40%. (6) CAD (coronary artery disease): The patient has a previous history of a right coronary stent placed after an inferior wall myocardial infarction however his most recent heart cath in 2011 indicates occlusion of the right coronary artery and along with his echocardiogram that shows an old inferior wall myocardial infarction the findings are unchanged. The patient is also previously had a coronary artery bypass surgery and a cardiac catheterization 2015 revealed the bypass grafts to be patent. Subjective The patient had an uneventful night. He is maintaining sinus rhythm. He has had no additional chest pain. I discussed the results of the cardiac catheterization with the patient today. Review of Systems Review of Systems: All systems reviewed & are unremarkable except as noted in HPI & below No additional information Physical Exam Physical Exam: General: no acute distress and stated age Head: normocephalic, no masses, lesions, tenderness or abnormalities Eyes: conjunctiva are pink and non-injected, sclera clear Neck: supple, no adenopathy, no bruits, normal jugular venous pulse, no hepatojugular reflux Chest: normal shape and normal respiratory effort Lungs: clear to auscultation and percussion Cardiac Exam: - regular rate & rhythm, no murmurs gallops or rubs - normal S1, normal S2 Pulses: 2(+) throughout Abdomen: abdomen soft, non-tender, no abnormal masses and no hepatosplenomegaly Musculoskeletal: no gait disturbance, no joint inflammation, no deforming arthritis Extremities: The cath site in the left groin is clean and dry with no ecchymosis or hematoma. Neuro: grossly normal exam Results & Data Vital Signs (Past 12 Hours) Vital Signs Temp Pulse Pulse Resp BP BP Pulse Ox 01/04/19 07: 36.5 C 51 L 18 153/76 H 97 01/04/19 04:13 36.5 C 50 L 16 149/88 H 92 01/04/19 00:17 54 L 01/03/19 23:20 62 17 98 01/03/19 22:57 37.1 C 59 L 18 135/79 98 01/03/19 21:55 36.7 C 59 L 18 169/80 H 99 Laboratory Results Laboratory Results - last 24 hr 01/03/19 01/03/19 01/03/19 11:36 18:40 20:28 WBC RBC Hgb Hct MCV MCH MCHC RDW Std Deviation RDW Coeff of Leonila Plt Count MPV APTT PTT Ratio POC Glucose 89 77 129 H 01/04/19 01/04/19 01/04/19 07:17 08:02 08:02 WBC 7.30 RBC 5.22 Hgb 15.3 Hct 45.0 MCV 86.2 MCH 29.3 MCHC 34.0 RDW Std Deviation 40.3 RDW Coeff of Leonila 12.8 Plt Count 105 L MPV 11.2 H APTT Pending PTT Ratio Pending POC Glucose 140 H Medications Administered Current Inpatient Medications Acetaminophen (Tylenol) 650 mg PO Q4H PRN PRN Reason: Pain or Fever Stop: 02/01/19 05:12 Aspirin (Ecotrin Ectab) 81 mg PO DAILY DARLEEN Stop: 02/01/19 08:59 Last Admin: 01/04/19 08:30 Dose: 81 mg Documented by: Atorvastatin Calcium (Lipitor) 80 mg PO DAILY DARLEEN Stop: 02/01/19 08:59 Last Admin: 01/04/19 08:31 Dose: 80 mg Documented by: Dextrose (Dextrose 50%) 25 - 50 ml IV UD PRN; Protocol PRN Reason: Hypoglycemia Protocol Stop: 02/01/19 05:12 Fluoxetine HCl (Prozac) 60 mg PO DAILY DARLEEN Stop: 02/01/19 08:59 Last Admin: 01/04/19 08:31 Dose: 60 mg Documented by: Glucagon (Glucagen) 1 mg SQ UD PRN; Protocol PRN Reason: Hypoglycemia Protocol Stop: 02/01/19 05:12 Glucose (Glucose 40%) 15 - 30 gm PO UD PRN; Protocol PRN Reason: Hypoglycemia Protocol Stop: 02/01/19 05:12 Glucose (Dex4 Glucose) 4 - 8 tabs PO UD PRN; Protocol PRN Reason: Hypoglycemia Protocol Stop: 02/01/19 05:12 Promethazine HCl 12.5 mg/ (Sodium Chloride) 50.5 mls @ 202 mls/hr IV Q6H PRN PRN Reason: Nausea And Vomiting Stop: 02/01/19 05:12 Sodium Chloride (Nss 1000ml) 1,000 mls @ 70 mls/hr IV .[id number] DARLEEN Stop: 02/02/19 18:44 Last Admin: 01/03/19 18:46 Dose: 70 mls/hr Documented by: Insulin Aspart (Novolog Flexpen) 0 units SC ACHS DARLEEN Stop: 02/01/19 05:12 Last Admin: 01/04/19 08:24 Dose: 4 units Documented by: Insulin Glargine (Lantus Solostar Pen) 50 units SQ HS [facility] Stop: 02/01/19 20:59 Last Admin: 01/03/19 20:33 Dose: 50 units Documented by: Isosorbide Mononitrate (Imdur Extended Rel) 60 mg PO DAILY DARLEEN Stop: 02/01/19 08:59 Last Admin: 01/04/19 08:30 Dose: 60 mg Documented by: Lisinopril (Zestril) 20 mg PO DAILY [facility] Stop: 02/01/19 08:59 Last Admin: 01/04/19 08:31 Dose: 20 mg Documented by: Lorazepam (Ativan) 0.5 mg PO Q8H PRN PRN Reason: Anxiety Stop: 02/01/19 05:12 Last Admin: 01/03/19 18:23 Dose: 0.5 mg Documented by: Miscellaneous (Carbohydrates For Hypoglycemia) 15 - 30 gm PO UD PRN PRN Reason: Hypoglycemia Treatment Stop: 02/01/19 05:12 Miscellaneous (Remove Nicoderm Patch) 1 ea N/A HS PRN PRN Reason: Insomnia Stop: 02/01/19 20:59 Last Admin: 01/03/19 03:46 Dose: 1 ea Documented by: Morphine Sulfate (Morphine Sulfate) 4 mg IV Q4H PRN PRN Reason: Pain Stop: 01/16/19 05:12 Nicotine (Nicoderm Cq) 14 mg TD QAM DARLEEN Stop: 02/01/19 20:39 Last Admin: 01/03/19 20:35 Dose: 14 mg Documented by: Nitroglycerin (Nitrostat) 0.4 mg SL UD PRN PRN Reason: Chest Pain Stop: 02/01/19 05:12 Sotalol HCl (Betapace) 120 mg PO BID DARLEEN Stop: 02/01/19 08:59 Last Admin: 01/04/19 08:29 Dose: 120 mg Documented by: Tramadol HCl (Ultram) 25 - 50 mg PO Q4H PRN PRN Reason: Pain Stop: 02/01/19 05:12 (1) Chest pain Chest pain type: unspecified Qualified Code(s): R07.9 - Chest pain, unspecified
[2019-01-04 08:52] LABS: Partial Thromboplastin Ratio 0.9; Partial Thromboplastin Time 24.2 Seconds (21.0-31.0)
--- NOTE | 2019-01-04 09:20 | Hospitalist Progress Note ---
Date of Service January 04, 2019 Assessment & Plan (1) Chest pain: Chest Pain History CAD status post CABG and stent history of ischemic cardiomyopathy EF 30 to 35%, September 2017 non-ST segment elevation myocardial infarction (acute coronary syndrome). -Patient reported that prior to hospital presentation on 01/02/19, he was having midsternal chest pain and shortness of breath when he went to bed around 1 AM and took his cardiac medications including Eliquis and Sotalol and symptoms not relieved by CPAP. Patient reports the he was able to to get relief in the Emergency room. Patient currently does not have chest pain. He is breathing on room air. -Patient also found in the ED to be in atrial fibrillation with rapid ventricular response. was given IV diltiazem. The patient returned to sinus rhythm by 5:40 AM of 01/02/19. patient then was transitioned from heparin drip back to Eliquis -chest pain resolved with control of heart rate and rhythm however the troponins on 01/03/19 increased to above 7. Heparin drip was resumed at 1 AM on 01/03/19 with cardiology service plans on performing cardiac cath on 01/03/[address] elevation myocardial infraction -as per cardiology consult: The rapid heart rate created by atrial fibrillation resulted in the patient having angina and a non-ST segment elevation myocardial infarction. cardiac catheterization on 01/03/19 reveals severe [place] coronary artery disease with occlusions of the right coronary, left circumflex and LAD. His only remaining bypass graft is the COELLO to the LAD with the [place] LAD being diseased after the anastomotic site. There are collaterals to the distal right coronary artery and left circumflex artery from the LAD so essentially he is living on his solitary COELLO graft -no stents were placed and cardiology service recommends to current current home dose cardiac medication; because patient had cardiac cath on this hospital presentation he is advised by cardiology doctor to resume Eliquis 5 mg BID starting on 01/05/19 -Patient should follow with cardiology 01/21/2019 1:30 PM Provider Luis Manuel Metz Jr., DO Department Cardiology, [facility] Atrial Fibrillation with rapid ventricular response Paroxysmal atrial fibrillation -Patient also found in the ED to be in atrial fibrillation with rapid ventricular response. was given IV diltiazem. The patient returned to sinus rhythm by 5:40 AM of 01/02/19 -was anticoagulated with heparin while awaiting cardiac cath -Patient had cardiac cath on this hospital presentation and advised by cardiology doctor to resume Eliquis 5 mg BID starting on 01/05/19 -continue sotalol BID Type 2 diabetes mellitus with assisted current [place] of insulin without complication -HbA1c is 8.8 -given insulin in the hospital, can resume home dosing of insulin on discharge -Patient should follow with primary care doctor in 1 week and also management of diabetes Tobacco Use -encourage smoking cessation -patient declined nicotine substitute prescriptions Possible borderline hypothyroidism -TSH elevated as 4.7 however normal t4 --patient should have thyroid function repeated as outpatient with primary care doctor past history TIA as per records Full code [facility] [phone] Discharge Diagnosis Chest pain, Atrial fibrillation with Rapid Ventricular Response, non-ST segment elevation myocardial infarction (acute coronary syndrome). Type 2 diabetes mellitus with assisted current use of insulin without complication, Tobacco Use Subjective Patient denies chest pain. no shortness of breath. no bleeding from cardic cath sites. he has been able to ambulate. no dizziness. no lightheadedness. hospitalist and dry cleaner presser discussed discharge plans with the patient Physical Exam Constitutional: WD/WN, vitals as above Eyes: PERRL, conjunctivae normal, anicteric sclerae EOM intact bilaterally ENMT: external ear and nose normal, oropharynx normal Neck: trachea midline, no thyromegaly normal visual inspection Respiratory: normal respiratory effort, lungs clear to auscultation Cardiovascular: Rate/Rhythm: regular rhythm and + bradycardic Gastrointestinal (Abdomen): normal bowel sounds, soft, nontender, no hepatosplenomegaly Musculoskeletal: no cyanosis or clubbing, extremities motor strength 5/5 Head/Neck/Chest: normocephalic and head atraumatic Skin: no rashes, warm and dry (no bleeding from cardiac cath sites near groin) Neurologic: PERRL, EOMI, accommodation nl, no face palsy, no dysarthria CN' s II-XI intact bilaterally Psychiatric: A+Ox3, euthymic affect Results & Data Vital Signs (Past 12 Hours) Vital Signs Temp Pulse Pulse Resp BP BP Pulse Ox 01/04/19 07:19 36.5 C 51 L 18 153/76 H 97 01/04/19 04:13 36.5 C 50 L 16 149/88 H 92 01/04/19 00:17 54 L 01/03/19 23:20 62 17 98 01/03/19 22:57 37.1 C 59 L 18 135/79 98 01/03/19 21:55 36.7 C 59 L 18 169/80 H 99 (1) Chest pain Chest pain type: unspecified Qualified Code(s): R07.9 - Chest pain, unspecified
--- NOTE | 2019-01-04 09:29 | Discharge Summary ---
Date of Service January 04, 2019 Admission HPI Per Admitting Provider History obtained from patient, family, and records. Medical history significant for chronic systolic heart failure secondary to ischemic cardiomyopathy EF 30 to 35%, September 2017, CAD status post CABG/stenting, A. fib on Eliquis, past history TIA as per records, DM 2 insulin requiring, sleep apnea on CPAP, ongoing tobacco abuse. Recent confinement October 2015 for new onset A. fib. Patient discharged on Sotalol and Coumadin. Coumadin later switched to Eliquis. Last night, patient experience achy substernal discomfort associated with palpitations, shortness of breath symptoms. Some relief with nitroglycerin. Patient burping a lot, denies abdominal pain. Somewhat different from heart attack in the past which presented as right-sided chest pain as per patient. Denies cough, unusual weight gain. Patient missed morning medication yesterday due stress of her father's confinement for heart issues. At the ER, patient noted to be in rapid A. fib. Heart rate in the 120s. Patient received IV Cardizem at the ER. Cardiac rate currently in the 80s. Patient comfortable. Medical History as above Surgical History : CABG Family History : Heart disease Personal/Social history : Half pack daily, no EtOH intake, disabled Admission Exam Per Admitting Provider GENERAL: Comfortable, obese, no respiratory distress SKIN: Normal color, warm HEENT: Bespectacled, pink palpebral conjunctivae, no ptosis, moist buccal mucosa NECK : Supple, short, no tenderness CHEST : CTA, no tenderness HEART : Irregular, no obvious murmurs ABDOMEN: Some distention, nontender EXTREMITIES : No LE swelling/tenderness, no other conspicuous deformities noted NEUROLOGIC : Coherent, no facial asymmetry, no other gross focality Principal Diagnosis Chest pain, Atrial fibrillation with Rapid Ventricular Response, non-ST segment elevation myocardial infarction (acute coronary syndrome). Type 2 diabetes mellitus with head of biology current use of insulin without complication, Tobacco Use Discharge Exam Constitutional WD/WN, vitals as above Eyes PERRL, conjunctivae normal, anicteric sclerae EOM intact bilaterally ENMT external ear and nose normal, oropharynx normal Neck trachea midline, no thyromegaly normal visual inspection Respiratory normal respiratory effort, lungs clear to auscultation Cardiovascular Rate/Rhythm: regular rhythm and + bradycardic Gastrointestinal (Abdomen) normal bowel sounds, soft, nontender, no hepatosplenomegaly Musculoskeletal no cyanosis or clubbing, extremities motor strength 5/5 Head/Neck/Chest: normocephalic and head atraumatic Skin no rashes, warm and dry (no bleeding from cardiac cath sites near groin) Neurologic PERRL, EOMI, accommodation nl, no face palsy, no dysarthria CN's II-XI intact bilaterally Psychiatric A+Ox3, euthymic affect Discharge Data Allergies Allergy/AdvReac Type Severity Reaction Status Date / Time oxycodone AdvReac Mild DIZZINESS,Upset Verified 01/02/19 03:27 stomach Consultations 01/02/19 03:36 ED Decision to Admit Stat 01/02/19 05:13 Consult Cardiology Routine Procedures Performed Operation Date: 01/03/19 12:00 Actual Procedures p Cath, Left w/Cors Vent Grafts - Frank Carter, s Cineradiography w/Routine Exam - Frank Carter DO Ordered Studies 01/03/19 13:00 CL Cath Imgs for PACS use only Routine Hospital Course (1) Chest pain: Chest Pain History CAD status post CABG and stent history of ischemic cardiomyopathy EF 30 to 35%, September 2017 non-ST segment elevation myocardial infarction (acute coronary syndrome). -Patient reported that prior to hospital presentation on 01/02/19, he was having midsternal chest pain and shortness of breath when he went to bed around 1 AM and took his cardiac medications including Eliquis and Sotalol and symptoms not relieved by CPAP. Patient reports the he was able to to get relief in the Emergency room. Patient currently does not have chest pain. He is breathing on room air. -Patient also found in the ED to be in atrial fibrillation with rapid ventricular response. was given IV diltiazem. The patient returned to sinus rhythm by 5:40 AM of 01/02/19. patient then was transitioned from heparin drip b ack to Eliquis -chest pain resolved with control of heart rate and rhythm however the troponins on 01/03/19 increased to above 7. Heparin drip was resumed at 1 AM on 01/03/19 with cardiology service plans on performing cardiac cath on 01/03/[address] elevation myocardial infraction -as per cardiology consult: The rapid heart rate created by atrial fibrillation resulted in the patient having angina and a non-ST segment elevation myocardial infarction. cardiac catheterization on 01/03/19 reveals severe [place] coronary artery disease with occlusions of the right coronary, left circumflex and LAD. His only remaining bypass graft is the COELLO to the LAD with the [place] LAD being diseased after the anastomotic site. There are collaterals to the distal right coronary artery and left circumflex artery from the LAD so essentially he is living on his solitary COELLO graft -no stents were placed and cardiology service recommends to current current home dose cardiac medication; because patient had cardiac cath on this hospital presentation he is advised by cardiology doctor to resume Eliquis 5 mg BID starting on 01/05/19 -Patient should follow with cardiology 01/21/2019 1:30 PM Provider Luis Manuel Metz Jr., Department Cardiology, [facility] Atrial Fibrillation with rapid ventricular response Paroxysmal atrial fibrillation -Patient also found in the ED to be in atrial fibrillation with rapid ventricular response. was given IV diltiazem. The patient returned to sinus rhythm by 5:40 AM of 01/02/19 -was anticoagulated with heparin while awaiting cardiac cath -Patient had cardiac cath on this hospital presentation and advised by cardiology doctor to resume Eliquis 5 mg BID starting on 01/05/19 -continue sotalol BID Type 2 diabetes mellitus with head of biology current harrison of insulin without complication -HbA1c is 8.8 -given insulin in the hospital, can resume home dosing of insulin on discharge -Patient should follow with primary care doctor in 1 week and also management of diabetes Tobacco Use -encourage smoking cessation -patient declined nicotine substitute prescriptions Possible borderline hypothyroidism -TSH elevated as 4.7 however normal t4 --patient should have thyroid function repeated as outpatient with primary care doctor past history TIA as per records Full code Veronica Gr [phone] Discharge Diagnosis Chest pain, Atrial fibrillation with Rapid Ventricular Response, non-ST segment elevation myocardial infarction (acute coronary syndrome). Type 2 diabetes mellitus with mcc current use of insulin without complication, Tobacco Use Total Time Total Time Spent Total Time Spent (In Minutes): 40 minutes Total Time Includes: Examination of the Patient, Discharge Planning, Medication Reconciliation and Communication With Other Providers Discharge Plan Discharge Items Patient Disposition: Home - Self-Care Reason For Visit: RAPID AF, ACS Discharge Diagnosis: Chest pain, Atrial fibrillation with Rapid Ventricular Re sponse, non-ST segment elevation myocardial infarction (acute coronary syndrome). Type 2 diabetes mellitus with mcc current use of insulin without complication, Tobacco Use Condition: Good Discharge Goals: Improve disease control Activity: Per 'Additional Instructions' section Non-emergency contact: Primary Care Provider and Manager Technical Support Call non-emergency contact if: you have any medication questions Follow-up/Referrals: Fish Estrella [Primary Care Provider] - Diet: Heart Healthy Add Provider Instructions: Discharge to Home Patient had cardiac cath on this hospital presentation and advised by cardiology doctor to resume Eliquis 5 mg BID starting on 01/05/19 (The rapid heart rate created by atrial fibrillation resulted in the patient having angina and a non-ST segment elevation myocardial infarction. cardiac catheterization on 01/03/19 reveals severe [place] coronary artery disease with occlusions of the right coronary, left circumflex and LAD. His only remaining bypass graft is the COELLO to the LAD with the [place] LAD being diseased after the anastomotic site. There are collaterals to the distal right coronary artery and left circumflex artery from the LAD so essentially he is living on his solitary COELLO graft) Patient should follow with primary care doctor in 1 week and also management of diabetes Possible borderline hypothyroidism -TSH elevated as 4.7 however normal t4 -patient should have thyroid function repeated as outpatient with primary care doctor Patient should follow with cardiology 01/21/2019 1:30 PM Provider Luis Manuel Metz Jr., DO Department Cardiology, [facility] Patient should avoid tobacco use. Prescriptions: Continued isosorbide mononitrate 60 mg Tablet Extended Release 24 Hr 60 mg PO DAILY RF: 0 Eliquis 5 mg Tablet 5 mg PO BID RF: 0 lisinopril 20 mg Tablet 20 mg PO DAILY RF: 0 zolpidem 10 mg Tablet 10 mg PO HS PRN (Reason: Sleep) RF: 0 lorazepam 0.5 mg Tablet 0.5 mg PO Q8H PRN (Reason: Anxiety) RF: 0 sotalol 120 mg Tablet 120 mg PO BID RF: 0 atorvastatin 80 mg Tablet 80 mg PO DAILY RF: 0 furosemide [Lasix] 40 mg Tablet 40 mg PO BID RF: 0 fluoxetine 20 mg Tablet 60 mg PO DAILY RF: 0 potassium chloride 20 mEq Tablet Extended Release 20 meq PO BID RF: 0 nitroglycerin [Nitrostat] 0.4 mg Tablet, Sublingual 0.4 mg sublingual DIRECTED RF: 0 empagliflozin 25 mg Tablet 25 mg PO DAILY RF: 0 aspirin 81 mg Tablet,Delayed Release (Dr/Ec) 81 mg PO DAILY RF: 0 Novolog U-100 Insulin aspart 100 unit/mL Solution 40 unit SUBCUT DIRECTED RF: 0 Novolog U-100 Insulin aspart 100 unit/mL Solution 45 unit SUBCUT DIRECTED RF: 0 Lantus Solostar U-100 Insulin 100 unit/mL (3 mL) Insulin Pen 80 unit SUBCUT QPM RF: 0 Stand-Alone Forms: [facility] Discharge Orders: Discharge Order (Routine); Ordered 01/04/19 Ordered By: Ozzy Pineda Admission Data Admit Date/Time: 01/02/19 04:35 Attending Provider: Ozzy Pineda Admit Provider: Hunter Patel Primary Care Provider: Fish Estrella Other Providers: Hunter Patel ; Luis Manuel Metz Service: Telemetry
[2019-01-04] MEDS: SODIUM CHLORIDE 0.9% 1000ML 1,000 ML IV SCH (09:41)
== END 2019-01-04 10:35 | disposition home or self-care (01) | DRG 281 ==
LOC: ED 02:44 → 2S 04:35
DX: I11.0 Hypertensive heart disease with heart failure; E78.00 Pure hypercholesterolemia, unspecified; Z79.899 Other long term (current) drug therapy; Z88.5 Allergy status to narcotic agent; Z79.01 Long term (current) use of anticoagulants; Z82.49 Family history of ischemic heart disease and other diseases of the circulatory system; E03.9 Hypothyroidism, unspecified; I21.4 Non-ST elevation (NSTEMI) myocardial infarction; I25.719 Atherosclerosis of autologous vein coronary artery bypass graft(s) with unspecified angina pectoris; F17.210 Nicotine dependence, cigarettes, uncomplicated; I48.0 Paroxysmal atrial fibrillation; G47.33 Obstructive sleep apnea (adult) (pediatric); Z86.73 Personal history of transient ischemic attack (TIA), and cerebral infarction without residual deficits; I25.5 Ischemic cardiomyopathy; I50.22 Chronic systolic (congestive) heart failure; Z79.82 Long term (current) use of aspirin; I25.10 Atherosclerotic heart disease of native coronary artery without angina pectoris; E11.65 Type 2 diabetes mellitus with hyperglycemia; Z79.4 Long term (current) use of insulin; I25.2 Old myocardial infarction; Z99.89 Dependence on other enabling machines and devices; Z95.5 Presence of coronary angioplasty implant and graft; Z95.1 Presence of aortocoronary bypass graft

== ENCOUNTER 2019-07-03 01:37 | Inpatient (IN) ==
[2019-07-03] MEDS ORDERED: dilTIAZem HCl 5 MG/ML 5 ML VIAL IV STA ×2 (01:43→04:47)
[2019-07-03 01:49] LABS: Basophils # (auto) 0.03 K/uL (0-0.2); Basophils % (auto) 0.4 %; Eosinophils # (auto) 0.23 K/uL (0-0.5); Eosinophils % (auto) 3.2 %; Hematocrit (blood only) 50.5 % (42-52); Hemoglobin 17.5 g/dL (14.0-18.0); Immature Granulocytes # (auto) 0.02 K/uL (0.00-0.02); Immature Granulocytes % (auto) 0.3 %; Lymphocytes # (auto) 1.84 K/uL (1.2-3.4); Lymphocytes % (auto) 25.3 %; Mean Corpuscular Hemoglobin 30.1 pg (25-34); Mean Corpuscular Hgb Conc 34.7 g/dL (32-36); Mean Corpuscular Volume 86.9 fL (80-100); Mean Platelet Volume 11.5 fL (7.4-10.4); Monocytes # (auto) 0.56 K/uL (0.11-0.59); Monocytes % (auto) 7.7 %; Neutrophils # (auto) 4.59 K/uL (1.4-6.5); Neutrophils % (auto) 63.1 %; Platelet Count 157 K/uL (130-400); RDW Coefficient of Variation 13.1 % (11.5-14.5); RDW Standard Deviation 41.4 fL (36.4-46.3); Red Blood Count 5.81 M/uL (4.7-6.1); White Blood Count 7.27 K/uL (4.8-10.8)
[2019-07-03 03:01] LABS: Albumin Globulin Ratio 0.9 (0.9-2); Albumin Level 4.1 gm/dl (3.4-5.0); BUN Creatinine Ratio 14.1 (10-20); Bilirubin,Total 0.5 mg/dl (0.2-1); Calcium 9.4 mg/dl (8.5-10.1); Creatinine Clr Calc Pharmacy 95.1 ml/min; Est GFR (African American) 80.3; Est GFR (Non-African American) 69.3; Globulin 4.4 gm/dl (2.5-4.0); Total Protein 8.5 gm/dl (6.4-8.2); Troponin I 0.027 ng/ml (0-0.045)
[2019-07-03 03:02] LABS: Potassium 4.2 mmol/L (3.5-5.1)
[2019-07-03] MEDS ORDERED: ACETAMINOPHEN 500 MG TAB PO STA (03:07)
--- NOTE | 2019-07-03 04:11 | Emergency Department Note ---
Entered by Winston Pope acting as a scribe for History of Present Illness General Chief complaint: Chest Pain Stated complaint: chest pain Source: patient History of Present Illness Onset (ago): day(s) (this morning at 0000) Location: chest Pain Consistency: + now resolved Current Pain Intensity: 0 Treatments prior to arrival: other (aspirin) The patient is a 58 year old male who presents to the emergency department with complaints of resolved chest pain beginning at 0000 this morning. The patient states that he has been sick for the last ten days. He notes that he just took his last dose of antibiotics last night for his bronchitis. He reports that he developed chest pain this morning at 0000 that has since resolved. The patient states that he took four Aspirin en route to the emergency department. The patient states that he has a history of diabetes and he notes that he is a former smoker. Patient has a significant cardiac history including CABG and stent placement, atrial fibrillation for which he is currently taking Eliquis.. Home Medications Home Medications Medication Instructions Recorded Confirmed Type Eliquis 5 mg PO BID 01/02/19 07/03/19 History Lantus Solostar U-100 Insulin 80 unit SUBCUT QPM 01/02/19 07/03/19 History aspirin 81 mg PO DAILY 01/02/19 07/03/19 History atorvastatin 80 mg PO DAILY 01/02/19 07/03/19 History fluoxetine 80 mg PO DAILY 01/02/19 07/03/19 History furosemide [Lasix] 40 mg PO BID 01/02/19 07/03/19 History insulin aspart U-100 [Novolog 45 unit SUBCUT DIRECTED 01/02/19 07/03/19 Histo ry U-100 Insulin aspart] isosorbide mononitrate 60 mg PO DAILY 01/02/19 07/03/19 History lisinopril 20 mg PO BID 01/02/19 07/03/19 History nitroglycerin [Nitrostat] 0.4 mg SUBLINGUAL DIRECTED 01/02/19 07/03/19 History potassium chloride 20 meq PO BID 01/02/19 07/03/19 History sotalol 120 mg PO BID 01/02/19 07/03/19 History zolpidem 10 mg PO HS PRN 01/02/19 07/03/19 History empagliflozin [Jardiance] 25 mg PO DAILY 07/03/19 07/03/19 History insulin aspart U-100 [Novolog 40 unit SUBCUT DIRECTED 07/03/19 07/03/19 History U-100 Insulin aspart] insulin aspart U-100 [Novolog 50 unit SUBCUT DIRECTED 07/03/19 07/03/19 History U-100 Insulin aspart] Allergies Allergy/AdvReac Type Severity Reaction Status Date / Time oxycodone AdvReac Mild DIZZINESS,Upset Verified 07/03/19 02:09 stomach Past Med/Surg History Family History (Updated 07/03/19 @ 01:48 by Winston Pope) Other No significant family history Social History Preferred Language: Vietnamese Communication Ability: Effective 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 and A total of 10 systems reviewed and were otherwise negative Physical Exam Vital Signs Vital Signs - 24 hr 07/03/19 01:43 07/03/19 01:50 07/03/19 03:50 Temperature 37.1 C Temperature Source Oral Pulse Rate 95 H Pulse Rate [Apical] 95 H Respiratory Rate 18 18 Respiratory Effort / Characteristics Non-Labored Spontaneous Non-Labored Spontaneous Respiratory Depth Normal Normal Blood Pressure 166/108 H Blood Pressure [Right Arm] 126/89 Blood Pressure Mean 127 Blood Pressure Mean [Right Arm] 101 Pulse Oximetry 97 97 96 Oxygen Delivery Method Room Air Room Air Room Air Sepsis Recent Fever Within 48 Hours No Sepsis Action Taken by Nursing No Action Required Vital signs reviewed. General: Chronically ill and somewhat disheveled appearing male, in no significant distress. HEENT: No conjunctival injection, moist mucous membranes. Cardiovascular: Slightly tachycardic and irregular, no extra sounds. Pulmonary: Clear to auscultation bilaterally, normal work of breathing. Abdomen: Soft, nontender, nondistended, positive bowel sounds. Musculoskeletal: Atraumatic, no peripheral edema. Neurologic: Patient awake alert and oriented x 3. Skin: Warm, dry, no rash. Skin picking lesions to face, upper extremities, and abdomen. Course Course 0139: The patient was evaluated in room B11. A complete history and physical exam was performed. 0350: Upon reevaluation, the patient is stable. I discussed the findings and the treatment plan with the patient. He expresses agreement and understanding. I sp gordy with Dr. Daily of the [facility] Service. The patient will be evaluated for further management. Consultations Consultation #1: I reviewed the patient[facility] He will evaluate the patient for further management. Time: 03:50 Administered Medications Discontinued Medications Acetaminophen (Tylenol) 1,000 mg PO NOW STA Stop: 07/03/19 03:08 Last Admin: 07/03/19 03:50 Dose: 1,000 mg Documented by: [id number] Diltiazem HCl (Cardizem) 10 mg IV NOW STA Stop: 07/03/19 01:44 Last Admin: 07/03/19 03:44 Dose: Not Given Documented by: [id number] Diltiazem HCl (Cardizem) Confirm Administered Dose 25 mg IV .STBellaDati-MED ONE Stop: 07/03/19 04:48 Last Admin: 07/03/19 04:52 Dose: Not Given Documented by: [id number] Diltiazem HCl (Cardizem) 10 mg IV NOW STA Stop: 07/03/19 04:48 Last Admin: 07/03/19 04:50 Dose: 10 mg Documented by: [id number] Cosigned by: [id number] Medical Decision Making Differential Diagnosis Differential diagnoses include: Acute coronary syndrome, pulmonary embolus, aortic dissection, musculoskeletal pain, pneumonia, pleural effusion, pneumothorax Medical Records Attestation: I reviewed the patient's medical records. Home Medications Current Medication List: was personally reviewed by me Laboratory Data Attestation: I reviewed the patient's lab results. Result diagrams: 07/03/19 00:15 07/03/19 00:15 Lab Results 07/03/19 07/03/19 Range/Units 00:15 00:15 WBC 7.27 (4.8-10.8) K/uL RBC 5.81 (4.7-6.1) M/uL Hgb 17.5 (14.0-18.0) g/dL Hct 50.5 (42-52) % MCV 86.9 (80-100) fL MCH 30.1 (25-34) pg MCHC 34.7 (32-36) g/dL RDW Std Deviation 41.4 (36.4-46.3) fL RDW Coeff of Leonila 13.1 (11.5-14.5) % Plt Count 157 (130-400) K/uL MPV 11.5 H (7.4-10.4) fL Immature Gran % (Auto) 0.3 % Neut % (Auto) 63.1 % Lymph % (Auto) 25.3 % Barnes % (Auto) 7.7 % Eos % (Auto) 3.2 % Baso % (Auto) 0.4 % Immature Gran # (Auto) 0.02 (0.00-0.02) K/uL Neut # (Auto) 4.59 (1.4-6.5) K/uL Lymph # (Auto) 1.84 (1.2-3.4) K/uL Barnes # (Auto) 0.56 (0.11-0.59) K/uL Eos # (Auto) 0.23 (0-0.5) K/uL Baso # (Auto) 0.03 (0-0.2) K/uL Sodium 139 (136-145) mmol/L Potassium 4.2 (3.5-5.1) mmol/L Chloride 106 (98-107) mmol/L Carbon Dioxide 28 (21-32) mmol/L Anion Gap 5.0 (3-11) BUN 16 (7-18) mg/dl Creatinine 1.17 (0.6-1.4) mg/dl Est Cr Clr Drug Dosing 95.1 ml/min Est GFR ( Amer) 80.3 Est GFR (Non-Af Amer) 69.3 BUN/Creatinine Ratio 14.1 (10-20) Glucose 134 H (70-99) mg/dl Calcium 9.4 (8.5-10.1) mg/dl Total Bilirubin 0.5 (0.2-1) mg/dl AST 19 (15-37) U/L ALT 28 (12-78) U/L Alkaline Phosphatase 106 (45-117) U/L Troponin I 0.027 (0-0.045) ng/ml Total Protein 8.5 H (6.4-8.2) gm/dl Albumin 4.1 (3.4-5.0) gm/dl Globulin 4.4 H (2.5-4.0) gm/dl Albumin/Globulin Ratio 0.9 (0.9-2) Lipase 242 (73-393) U/L Imaging Data Attestation: I personally reviewed and interpreted this imaging study as follows: My Impression: CHEST X-RAY: Moderate cardiomegaly. Post sternotomy changes. No focal infiltrate. No failure. ECG Data Attestation: I personally reviewed and interpreted this ECG as follows: Indication: + chest pain Rate (beats per minute): 99 Rhythm: + atrial fibrillation Additional Comments: Interventricular conduction delay, ST abnormality in the lateral leads, prolonged QTC at 467. Blood Pressure Blood Pressure Findings: Elevated blood pressure Blood Pressure Disposition: elevated BP felt to be situational MDM Narrative This patient was evaluated and appeared to be in some discomfort. IV access was obtained and laboratory work was drawn. Patient was given aspirin and nitr oglycerin prior to arrival. He did receive IV Cardizem 20 mg with good rate control. ST changes on the initial prehospital EKG seemed to be much less significant and likely rate related. Patient has no chest discomfort at this time. Laboratory work reveals a negative troponin at 0.027. Patient does have an extensive cardiac history with [place] within the last year. Chest x-ray reveals no evidence of acute infiltrative change or congestive heart failure. Patient was reevaluated and stated he felt like he "was hit by a Prabhu truck." Patient will be evaluated by the hospitalist, Dr. Daily, for further management. Patient is aware of the plan and agrees. Impression & Plan Atrial fibrillation, rapid, CAD (coronary artery disease), Substernal chest pain Discharge Plan Visit Data *Final* Discharge Date/Time: 07/03/19 05:07 Chief Complaint: Chest Pain Stated Complaint: chest pain ED Provider: Clementina Winchester Discharge Problem: Atrial fibrillation, rapid, CAD (coronary artery disease), Substernal chest pain Patient Disposition: Admitted As Inpatient Discharge Instructions Interventions: ED Discharge Assessment Last Done: 07/03/19 05:07 Discharge Problem: CAD (coronary artery disease) Qualifiers: Coronary Disease-Associated Artery/Lesion type: unspecified vessel or lesion type [place] vs. transplanted heart: [place] heart Associated angina: with unspecified angina Qualified Code(s): I25.119 - Atherosclerotic heart disease of [place] coronary artery with unspecified angina pectoris The scribe's documentation has been prepared under my direction and personally reviewed by me in its entirety. I confirm that the note above accurately reflects all work, treatment, procedures, and medical decision making performed by me.
[2019-07-03] MEDS ORDERED: dilTIAZem HCL 125 MG in DEXTROSE 5% 100 ML IV SCH (04:47)
[2019-07-03] MEDS ORDERED: dilTIAZem HCl 5 MG/ML 5 ML VIAL IV ONE (04:47)
[2019-07-03] MEDS ORDERED: ONDANSETRON INJ 2 MG/ML 2 ML VIAL IV PRN (05:35)
[2019-07-03] MEDS ORDERED: NITROGLYCERIN SL 0.4 MG/TAB TAB SL PRN (05:35)
[2019-07-03] MEDS ORDERED: POLYETHYLENE (MIRALAX) 17 GM PACK PO PRN (05:35)
[2019-07-03] MEDS ORDERED: ACETAMINOPHEN 325 MG TAB PO PRN (05:35)
[2019-07-03] MEDS ORDERED: ZOLPIDEM TARTRATE 10 MG TAB PO PRN (05:35)
[2019-07-03] MEDS ORDERED: NITROGLYCERIN SL 0.4 MG/TAB TAB SL SCH (05:35)
[2019-07-03] MEDS ORDERED: CARBOHYDRATES FOR HYPOGLYCEMIA PO PRN (06:00)
[2019-07-03] MEDS ORDERED: GLUCOSE 40% GEL 15 GM TUBE PO PRN (06:00)
[2019-07-03] MEDS ORDERED: GLUCAGON FOR INJ 1 MG VIAL SQ PRN (06:00)
[2019-07-03] MEDS ORDERED: DEXTROSE 50% 50 ML SYRINGE IV PRN (06:00)
[2019-07-03] MEDS ORDERED: GLUCOSE 10 TABS/TUBE PO PRN (06:00)
[2019-07-03] MEDS ORDERED: PERFLUTREN LIPID MICROSPHERE (DEFINITY) IV ONE (06:46)
[2019-07-03] MEDS: INSULIN ASPART 100 UNITS/ML 3 ML PEN SC SCH ×2 (08:06→12:19)
--- NOTE | 2019-07-03 08:10 | Hospitalist Progress Note ---
Date of Service July 03, 2019 Assessment & Plan (1) Atrial fibrillation with RVR: Paroxysmal Atrial fibrillation Anticoagulated by anticoagulation therapy Elevated Troponins -Patient presented to the hospital for chest discomfort and was found to be in atrial fibrillation with rapid ventricular response with initial troponin negative. treated with diltiazem IV. Patient converted to sinus rhythm with heart rate as bradycardia in the 60 beats per minute around 6 AM. Patient had elevated troponin of 0.259 drawn also around 6 AM but apparently patient was not with chest pain at that time. Patient seen by daytime hospitalist examined around 8 AM. Patient feeling comfortable. denies chest pain currently. no shortness of breath and is breathing on room air. no dizziness. no lightheadedness. no nausea. no vomiting. Patient reports that his primary care doctor is at the [facility] but patient follows with [facility] affiliated production support consultant Dr. Metz. EKG performed on 7:38 AM with T wave abnormalities and patient already had echocardiogram performed. Patient is agreeable to wait for [facility] cardiology evaluations and trending of troponins while in hospital and currently NPO. -continue On Sotalol 120 mg b.i.d. and Eliquis 5 mg p.o. b.i.d. Chronic Systolic Congestive Heart Failure History of coronary artery disease status post coronary artery bypass graft. -recent echocardiogram with 40 percent ejection fraction. 07/03/2019 echoacrdiogram results pending -Continue home Lasix and potassium supplement and the patient is on Imdur, lisinopril, aspirin, statin, sotalol Deep vein thrombosis prophylaxis.On Eliquis. Subjective Patient presented to the hospital for chest discomfort and was found to be in atrial fibrillation with rapid ventricular response with initial troponin negative. Patient converted to sinus rhythm with heart rate as bradycardia in the 60 beats per minute around 6 AM. Patient had elevated troponin of 0.259 drawn also around 6 AM but apparently patient was not with chest pain at that time. Patient seen by daytime hospitalist examined around 8 AM. Patient feeling comfortable. denies chest pain currently. no shortness of breath and is breathing on room air. no dizziness. no lightheadedness. no nausea. no vomiting. Patient reports that his primary care doctor is at the [facility] but patient follows with [facility] production support consultant Dr. Metz. EKG performed on 7:38 AM with T wave abnormalities and patient already had echocardiogram performed. Patient is agreeable to wait for [facility] cardiology evaluations and trending of troponins while in hospital and currently NPO. Review of Systems Review of Systems: All systems reviewed & are unremarkable except as noted in HPI & below Physical Exam Constitutional: comfortable Eyes: PERRL, conjunctivae normal, anicteric sclerae EOM intact bilaterally ENMT: external ear and nose normal, oropharynx normal Neck: normal visual inspection Respiratory: normal respiratory effort, lungs clear to auscultation Cardiovascular: Rate/Rhythm: regular rhythm and + bradycardic Gastrointestinal (Abdomen): normal bowel sounds, soft, nontender, no hepatosplenomegaly Musculoskeletal: Head/Neck/Chest: normocephalic and head atraumatic Neurologic: PERRL, EOMI, accommodation nl, no face palsy, no dysarthria CN's II-XI intact bilaterally Psychiatric: A+Ox3, euthymic affect Results & Data Vital Signs (Past 12 Hours) Vital Signs Temp Pulse Pulse Resp BP BP BP 07/03/19 07:10 36.4 C L 64 20 127/76 07/03/19 05:40 54 L 07/03/19 05:35 83 07/03/19 05:20 36.5 C 77 18 134/87 07/03/19 05:07 88 18 143/103 H 07/03/19 04:54 154 H 22 149/88 H 07/03/19 03:50 95 H 18 126/89 07/03/19 01:50 07/03/19 01:43 37.1 C 95 H 18 166/108 H Pulse Ox 07/03/19 07:10 97 07/03/19 05:40 07/03/19 05:35 07/03/19 05:20 98 07/03/19 05:07 95 07/03/19 04:54 97 07/03/19 03:50 96 07/03/19 01:50 97 07/03/19 01:43 97
--- NOTE | 2019-07-03 08:12 | XRay Report ---
XR chest 1V portable CLINICAL HISTORY: 58 years-old Male presenting with Chest Pain. TECHNIQUE: Portable upright AP view of the chest was obtained. COMPARISON: 06/07/2019. FINDINGS: Median sternotomy wires and mediastinal surgical clips. Atherosclerosis of the aortic arch. Cardiac s ilhouette mildly enlarged, unchanged. Pulmonary vascular prominence is also unchanged. No focal opaci ty. No large effusion or pneumothorax. Degenerative changes of the thoracic spine. Upper abdomen norm al. IMPRESSION: 1. Myocardial megaly, unchanged. No other convincing evidence of acute cardiopulmonary disease. ACT 112: Negative or not required by law. Electronically signed by: Gonsalo Travis M.D. 07/03/2019 8:11 AM
--- NOTE | 2019-07-03 08:42 | History and Physical Report ---
DATE OF ADMISSION: 07/03/2019 CHIEF COMPLAINT: Palpitations. HISTORY OF PRESENT ILLNESS: A 58-year-old male with past medical history significant for diabetes, hyperlipidemia, history of TIA, history of CAD status post CABG in 2005 with COELLO to LAD and vein graft to OM1 and OM2,NSTEMI in November 2011 with bare metal stent placed to RCA with most recent cardiac catheterization showed complete occlusion of RCA with patent grafts and [place] vessel disease, cardiac catheterization in December 2018 revealing occluded vein graft to OM1 and OM2 along with an occluded RCA, patent COELLO graft with distal 60% [place] LAD stenosis after anastomosis, significant collaterals to the circumflex and RCA with EF of 40% now, history of tobacco abuse, history of paroxysmal atrial fibrillation on Eliquis, anxiety, presents with palpitations. Patient says since last night he was having palpitations which caused him worry and came to the ER. Denies any chest pain. Denies any nausea, vomiting. No dizziness. Nitro caused him some headache, no blurred vision, no earache, no runny nose, has mild cough, some sore throat, no nausea, no vomiting, no abdominal pain. Normal bowel and bladder movements. No hematuria or burning micturition, no melena or black stools. No swelling of the legs. No rash. No orthopnea. Received iv Cardizem in Er but still, the on monitor, heart rate in the 140s. ALLERGIES: OXYCODONE. PAST MEDICAL HISTORY: As mentioned above. PAST SURGICAL HISTORY: Colonoscopy, CABG, left heart catheterization. MEDICATIONS: The patient is on aspirin 81 mg p.o. daily, atorvastatin 80 mg p.o. daily, Eliquis 5 mg p.o. b.i.d. Jardiance 25 mg p.o. daily, fluoxetine 80 mg p.o. daily, Lasix 40 mg p.o. b.i.d., insulin as directed, Lantus 80 units at bedtime, Imdur 60 mg p.o. daily, lisinopril 20 mg p.o. b.i.d., nitroglycerin 0.4 mg sublingual p.r.n., potassium chloride 20 mEq p.o. b.i.d., sotalol 120 mg p.o. b.i.d., zolpidem 10 mg p.o. at bedtime p.r.n. FAMILY HISTORY: Significant for brother had CA at age 29. Father had CA at age 30. SOCIAL HISTORY: , smokes half a pack a day for 20 years. No alcohol use, no drug use. REVIEW OF SYMPTOMS: As per HPI. Rest of review of systems negative. PHYSICAL EXAMINATION: GENERAL: The patient is obese, not in acute distress. VITAL SIGNS: Temperature 37.1, pulse 95, respiratory rate 18, blood pressure 126/80 and oxygen 96% room air. HEENT: No pallor, no icterus. Pupils equal, round, reactive. NECK: No JVD, no masses, no carotid bruits. CARDIOVASCULAR: S1, S2 heard. Tachycardia, irregular rhythm. No murmurs. RESPIRATORY SYSTEM: Normal AP diameter. No accessory muscle use. No wheezing, no crackles. ABDOMEN: Soft, bowel sounds present, nontender. No distention. CENTRAL NERVOUS SYSTEM: Cranial nerves II-XII grossly intact, nonfocal. EXTREMITIES: No edema, no erythema. LABORATORY DATA: WBC 7.3, hemoglobin 17.5, hematocrit 50.5, platelets 157. Sodium 139, potassium 4.2, chloride 106, bicarbonate 28, BUN 16, creatinine 1.1, serum glucose 134, calcium 9.4, total bilirubin 0.5, AST 19, ALT 28, alkaline phosphatase 106. Troponin I 0.027, lipase 2.2. EKG: AFib with rate of 99, nonspecific ST changes. ASSESSMENT AND PLAN: This is a 58-year-old male who presents with palpitations. 1. Rapid atrial fibrillation. History of paroxysmal atrial fibrillation. On Sotalol 120 mg b.i.d. and Eliquis 5 mg p.o. b.i.d., which we will continue, received a dose of IV Cardizem in the ER, still tachycardic. We will place him on Cardizem drip and monitor in tele floor. We will follow serial cardiac enzymes, echocardiogram, consult cardiology in a.m. for further recommendations. 2. History of diabetes. Hold his home Jardiance and sliding scale. We will cut back Lantus to 40 units at bedtime as the patient is n.p.o. and increased to 80 units when patient is able to eat, insulin sliding scale. Follow blood sugars. 3. History of chronic systolic congestive heart failure, ejection fraction of 40% with latest echo. Continue home Lasix and potassium supplement and the patient is on Imdur, lisinopril. Currently stable. We will monitor. 4. History of coronary artery disease status post coronary artery bypass graft. Continue home medications of aspirin, statin, sotalol, lisinopril, Imdur. Will Monitor. 5.Deep vein thrombosis prophylaxis.On Eliquis. DISPOSITION: Admit to tele floor. Expect discharge home and followup. Level 1 full code. MTDD
[2019-07-03] MEDS ORDERED: SOTALOL HCL 80 MG TAB PO SCH (09:00)
[2019-07-03] MEDS ORDERED: lisinopriL 20 MG TAB PO SCH (09:00)
[2019-07-03] MEDS ORDERED: APIXABAN 5 MG TABLET PO SCH (09:00)
[2019-07-03] MEDS ORDERED: POTASSIUM CHLORIDE 20 MEQ TABCR PO SCH (09:00)
[2019-07-03] MEDS ORDERED: ISOSORBIDE MONO EXTENDED REL 60 MG TABCR PO SCH (09:00)
[2019-07-03] MEDS ORDERED: ATORVASTATIN 40 MG TAB PO SCH (09:00)
[2019-07-03] MEDS ORDERED: FLUOXETINE HCL 20 MG CAP PO SCH (09:00)
[2019-07-03] MEDS ORDERED: FUROSEMIDE 40 MG TAB PO SCH (09:00)
[2019-07-03] MEDS ORDERED: ASPIRIN 81 MG ECTAB PO SCH (09:00)
--- NOTE | 2019-07-03 15:19 | Cardiology Consultation ---
Date of Consultation July 03, 2019 Assessment & Plan (1) Atrial fibrillation, rapid: (2) Substernal chest pain: (3) CAD (coronary artery disease): The patient presented with recurrent atrial fibrillation, with associated chest pressure sensation. Initial EKG revealed atrial fibrillation with mildly elevated ventricular rates, and lateral ST segment depression. Troponin peaked at 0.2 ng/ ml . Anginal symptoms have resolved with sikhism of sinus rhythm while on diltiazem infusion in the diltiazem infusion has since been discontinued. Echocardiogram reveals moderate LV systolic dysfunction in the range of an ejection fraction of 35 to 40% with wall motion abnormalities cons istent with his prior history of right coronary artery territory infarct. These findings are unchanged compared to the December, echocardiogram. The patient had a cardiac catheterization after a similar presentation in December, with a severe [place] vessel disease, and patent COELLO to LAD graft, occluded SVG to OM. A 60% stenosis is noted of the distal LAD after the anastomosis of the COELLO, and ongoing medication management is recommended for this. He denies subjective angina at baseline. His symptoms seem to come on with the atrial fibrillation. At this time, I recommend ongoing medication management for his coronary heart disease. I think we need to work on trying to control his atrial fibrillation a little bit better. This most recent episode however may have been provoked by his recent respiratory tract infection and him having missed several doses the sotalol. I think it is most prudent for him to remain on the current dose of sotalol 120 mg twice daily, and to add low-dose metoprolol in addition in order to minimize risk of proarrhythmia that can of course happen with sotalol. He is to remain on Eliquis for stroke prophylaxis. A repeat EKG performed 07/03/2019 at 1528 and reviewed independently reveals sinus rhythm at 63 bpm, the previously noted lateral ST segment depression in the lateral precordial leads is improved, T wave inversion is noted in lead I and aVL. This is unchanged compared to May,. Similar ST changes in the leads I and aVL are also noted dating back to 2016. Summary: Add metoprolol 25 mg twice daily. Repeat EKG reveals stable findings improved compared to the EKG on presentation as well as the one this morning. I reviewed the cardiac catheterization films from December,. If there are concerns about recurrent anginal symptoms in the future, considerations include high risk PCI to the [place] LAD just distal to the anastomosis site of the graft. This however would be a very high risk procedure would need to be performed at a tertiary center, and comes at a significant risk of potentially compromising his LAD and his left internal mammary artery graft. Given the findings of his diffuse coronary anatomy, it is not surprising that he would have angina with elevated heart rates. Future considerations in terms of treatment of his atrial fibrillation include increasing his sotalol to 180 mg daily. But he is also already on fluoxetine. Would be concerned about risks of QT prolongation. Of note, the patient just received a course of azithromycin, he was counseled that he needs to notify any provider considering antibiotic therapy with him that he is on sotalol due to concerns of medication interaction. Dofetilide is anticipated to be prohibitively expensive for him. 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 History of Present Illness Attending Physician: Ozzy Pineda MD History of Present Illness Hunter Perez is a 58 year old male seen in cardiology consultation per the request of Dr Daily for the evaluation of atrial fibrillation and chest pressure. He states that about a week ago he was diagnosed with a bronchitis episode and had [facility]. A course of prednisone was recommended but the patient declined this. He tells me he finished a course of azithromycin. In the meantime, he missed several doses of his sotalol. He noted a transient episode of elevated heart rate 4 days ago on Sunday. Last evening just prior to midnight he was getting ready for bed and he typically takes his pills at bedtime right before bed. He noted that his heart seemed to be beating hard in his chest. He had associated chest pressure. He took his vital signs with his home blood pressure cuff and noted an elevated heart rate. This persisted for over half an hour and therefore he came to the hospital by EMS. EKG performed on arrival 07/03/2019 at 1:41 AM revealed atrial fibrillation at 99 bpm with intraventricular conduction delay, ST segment depression was noted in the lateral leads I, aVL, and V6. The patient received IV diltiazem and a telemetry he was observed to convert to sinus rhythm at 5:42 AM with noted 2.1- second conversion pause. In the meantime, sinus rhythm has been present in the range of 60-70 bpm with occasional isolated PVCs and a few ventricular couplets. Past Medical / Cardiac History: The patient's primary vocational rehabilitation consultant is Dr. Metz of our practice. He has a history of chronic coronary heart disease with remote CABG x3 with COELLO to LAD, SVG to OM1, SVG to OM 2. Patient had presented with a non-ST segment elevation myocardial infarction in 2015, and paroxysmal atrial fibrillation was also noted at the time of that admission. Cardiac catheterization revealed occlusion of the right coronary artery at its mid segment, that was not amenable to revascularization. His grafts were patent. Ongoing medication management is recommended. During that admission in 2015, sotalol 80 mg twice daily was initiated for rhythm control of his atrial fibrillation which was subsequently increased to 120 mg twice daily. December, the patient presented with recurrent atrial fibrillation, was also observed to have a non-ST segment elevation myocardial infarction with peak troponin of 7 NG per mL. Cardiac catheterization was performed at that time. The [place] LAD, circumflex coronary, and right coronary arteries were all occluded.The saphenous vein graft to the first and second obtuse marginals was occluded. The internal mammary artery graft to the LAD was patent with a 60% stenosis just after the anastomosis to the [place] LAD, the SARAH graft was noted to supply the distal RCA territory by [id number] collaterals. -The patient reports having ceased cigarette smoking in February,. Allergies Allergy/AdvReac Type Severity Reaction Status Date / Time oxycodone AdvReac Mild DIZZINESS,Upset Verified 07/03/19 02:09 stomach Home Medications Home Medications Medication Instructions Recorded Confirmed Type Eliquis 5 mg PO BID 01/02/19 07/03/19 History Lantus Solostar U-100 Insulin 80 unit SUBCUT QPM 01/02/19 07/03/19 History aspirin 81 mg PO DAILY 01/02/19 07/03/19 History atorvastatin 80 mg PO DAILY 01/02/19 07/03/19 History fluoxetine 80 mg PO DAILY 01/02/19 07/03/19 History furosemide [Lasix] 40 mg PO BID 01/02/19 07/03/19 History insulin aspart U-100 [Novolog 45 unit SUBCUT DIRECTED 01/02/19 07/03/19 Hist orjacquie U-100 Insulin aspart] isosorbide mononitrate 60 mg PO DAILY 01/02/19 07/03/19 History lisinopril 20 mg PO BID 01/02/19 07/03/19 History nitroglycerin [Nitrostat] 0.4 mg SUBLINGUAL DIRECTED 01/02/19 07/03/19 History potassium chloride 20 meq PO BID 01/02/19 07/03/19 History sotalol 120 mg PO BID 01/02/19 07/03/19 History zolpidem 10 mg PO HS PRN 01/02/19 07/03/19 History empagliflozin [Jardiance] 25 mg PO DAILY 07/03/19 07/03/19 History insulin aspart U-100 [Novolog 40 unit SUBCUT DIRECTED 07/03/19 07/03/19 History U-100 Insulin aspart] insulin aspart U-100 [Novolog 50 unit SUBCUT DIRECTED 07/03/19 07/03/19 History U-100 Insulin aspart] Patient History Family History (Updated 07/03/19 @ 01:48 by Winston Pope) Other No significant family history Social History Preferred Language: Serbian Communication Ability: Effective Trashman Required: No Beliefs That Will Affect Care: None Current Living Situation: Spouse Other Information That Helps Us Care for You: No Feels Safe at Home: Yes Safety Concerns: Feels Safe At This Time Smoking Status: Former smoker Tobacco Type: cigarettes ; Cigarettes Per Day: 10 ; Second Hand Exposure: No ; Hx Alcohol Use: No Hx Substance Use: No Review of Systems Review of Systems: All systems reviewed & are unremarkable except as noted in HPI & below Physical Exam Physical Exam: Temp Pulse Resp BP Pulse Ox 36.3 C L 65 16 120/69 96 07/03/19 10:47 07/03/19 10:47 07/03/19 10:47 07/03/19 10:47 07/03/19 10:47 Constitutional: WD/WN, vitals as above Respiratory: normal respiratory effort, lungs clear to auscultation Cardiovascular: RRR, no murmur, no edema Gastrointestinal (Abdomen): normal bowel sounds, soft, nontender, no hepatosplenomegaly Neurologic: PERRL, EOMI, accommodation nl, no face palsy, no dysarthria Results & Data Vital Signs (Past 12 Hours) Vital Signs Temp Pulse Pulse Resp BP BP BP 07/03/19 10:47 36.3 C L 65 16 120/69 07/03/19 07:10 36.4 C L 64 20 127/76 07/03/19 05:40 54 L 07/03/19 05:35 83 07/03/19 05:20 36.5 C 77 18 134/87 07/03/19 05:07 88 18 143/103 H 07/03/19 04:54 154 H 22 149/88 H 07/03/19 03:50 95 H 18 126/89 Pulse Ox 07/03/19 10:47 96 07/03/19 07:10 97 07/03/19 05:40 07/03/19 05:35 07/03/19 05:20 98 07/03/19 05:07 95 07/03/19 04:54 97 07/03/19 03:50 96 Laboratory Results Cardiac Enzymes 07/03/19 07/03/19 07/03/19 Range/Units 00:15 06:01 11:46 AST 19 (15-37) U/L Troponin I 0.027 0.259 H* 0.284 H* (0-0.045) ng/ml CBC 07/03/19 Range/Units 00:15 WBC 7.27 (4.8-10.8) K/uL RBC 5.81 (4.7-6.1) M/uL Hgb 17.5 (14.0-18.0) g/dL Hct 50.5 (42-52) % Plt Count 157 (130-400) K/uL Neut # (Auto) 4.59 (1.4-6.5) K/uL Lymph # (Auto) 1.84 (1.2-3.4) K/uL Wetzel # (Auto) 0.56 (0.11-0.59) K/uL Eos # (Auto) 0.23 (0-0.5) K/uL Baso # (Auto) 0.03 (0-0.2) K/uL Comprehensive Metabolic Panel 07/03/19 Range/Units 00:15 Sodium 139 (136-145) mmol/L Potassium 4.2 (3.5-5.1) mmol/L Chloride 106 (98-107) mmol/L Carbon Dioxide 28 (21-32) mmol/L BUN 16 (7-18) mg/dl Creatinine 1.17 (0.6-1.4) mg/dl Glucose 134 H (70-99) mg/dl Calcium 9.4 (8.5-10.1) mg/dl AST 19 (15-37) U/L ALT 28 (12-78) U/L Alkaline Phosphatase 106 (45-117) U/L Total Protein 8.5 H (6.4-8.2) gm/dl Albumin 4.1 (3.4-5.0) gm/dl Intake and Output 07/03/19 07/03/19 07/03/19 06:59 14:59 22:59 Intake Total 0 / 0 Balance 0 / 0 Intake: Oral 0 / 0 Other: # Unmeasured Voids 3 Weight 112.9 kg (1) CAD (coronary artery disease) Associated angina: with unspecified angina Coronary Disease-Associated Artery/Lesion type: unspecified vessel or lesion type [place] vs. transplanted heart: [place] heart Qualified Code(s): I25.119 - Atherosclerotic heart disease of [place] coronary artery with unspecified angina pectoris
[2019-07-03] MEDS ORDERED: METOPROLOL TARTRATE 25 MG TAB PO ONE (15:30)
--- NOTE | 2019-07-03 16:02 | Discharge Summary ---
Date of Service July 03, 2019 Admission HPI Per Admitting Provider CHIEF COMPLAINT: Palpitations. HISTORY OF PRESENT ILLNESS: A 58-year-old male with past medical history significant for diabetes, hyperlipidemia, history of TIA, history of CAD status post CABG in 2005 with COELLO to LAD and vein graft to OM1 and OM2,NSTEMI in November 2011 with bare metal stent placed to RCA with most recent cardiac catheterization showed complete occlusion of RCA with patent grafts and little traverse vessel disease, cardiac catheterization in December 2018 revealing occluded vein graft to OM1 and OM2 along with an occluded RCA, patent COELLO graft with distal 60% little traverse LAD stenosis after anastomosis, significant collaterals to the circumflex and RCA with EF of 40% now, history of tobacco abuse, history of paroxysmal atrial fibrillation on Eliquis, anxiety, presents with palpitations. Patient says since last night he was having palpitations which caused him worry and came to the ER. Denies any chest pain. Denies any nausea, vomiting. No dizziness. Nitro caused him some headache, no blurred vision, no earache, no runny nose, has mild cough, some sore throat, no nausea, no vomiting, no abdominal pain. Normal bowel and bladder movements. No hematuria or burning micturition, no melena or black stools. No swelling of the legs. No rash. No orthopnea. Received iv Cardizem in Er but still, the on monitor, heart rate in the 140s. ALLERGIES: OXYCODONE. PAST MEDICAL HISTORY: As mentioned above. PAST SURGICAL HISTORY: Colonoscopy, CABG, left heart catheterization. MEDICATIONS: The patient is on aspirin 81 mg p.o. daily, atorvastatin 80 mg p.o. daily, Eliquis 5 mg p.o. b.i.d. Jardiance 25 mg p.o. daily, fluoxetine 80 mg p.o. daily, Lasix 40 mg p.o. b.i.d., insulin as directed, Lantus 80 units at bedtime, Imdur 60 mg p.o. daily, lisinopril 20 mg p.o. b.i.d., nitroglycerin 0.4 mg sublingual p.r.n., potassium chloride 20 mEq p.o. b.i.d., sotalol 120 mg p.o. b.i.d., zolpidem 10 mg p.o. at bedtime p.r.n. FAMILY HISTORY: Significant for brother had IL at age 29. Father had IL at age 30. SOCIAL HISTORY: , smokes half a pack a day for 20 years. No alcohol use, no drug use. REVIEW OF SYMPTOMS: As per HPI. Rest of review of systems negative. Admission Exam Per Admitting Provider GENERAL: The patient is obese, not in acute distress. VITAL SIGNS: Temperature 37.1, pulse 95, respiratory rate 18, blood pressure 126/80 and oxygen 96% room air. HEENT: No pallor, no icterus. Pupils equal, round, reactive. NECK: No JVD, no masses, no carotid bruits. CARDIOVASCULAR: S1, S2 heard. Tachycardia, irregular rhythm. No murmurs. RESPIRATORY SYSTEM: Normal AP diameter. No accessory muscle use. No wheezing, no crackles. ABDOMEN: Soft, bowel sounds present, nontender. No distention. CENTRAL NERVOUS SYSTEM: Cranial nerves II-XII grossly intact, nonfocal. EXTREMITIES: No edema, no erythema. Principal Diagnosis Atrial fibrillation with RVR; Paroxysmal Atrial fibrillation; Anticoagulated by anticoagulation therapy; Elevated Troponins, Coronary artery disease, Chronic Systolic Congestive Heart Failure Discharge Exam Constitutional comfortable Eyes PERRL, conjunctivae normal, anicteric sclerae EOM intact bilaterally ENMT external ear and nose normal, oropharynx normal Neck normal visual inspection Respiratory normal respiratory effort, lungs clear to auscultation Cardiovascular Rate/Rhythm: regular rhythm and + bradycardic Gastrointestinal (Abdomen) normal bowel sounds, soft, nontender, no hepatosplenomegaly Musculoskeletal Head/Neck/Chest: normocephalic and head atraumatic Neurologic PERRL, EOMI, accommodation nl, no face palsy, no dysarthria CN's II-XI intact bilaterally Psychiatric A+Ox3, euthymic affect Discharge Data Allergies Allergy/AdvReac Type Severity Reaction Status Date / Time oxycodone AdvReac Mild DIZZINESS,Upset Verified 07/03/19 02:09 stomach Consultations 07/03/19 03:51 ED Decision to Admit Stat 07/03/19 05:35 Consult Case Management - Discharge Planning Routine 07/03/19 08:00 Consult Cardiology Routine Hospital Course (1) Atrial fibrillation with RVR: Paroxysmal Atrial fibrillation Anticoagulated by anticoagulation therapy Elevated Troponins -Patient presented to the hospital for chest discomfort and was found to be in atrial fibrillation with rapid ventricular response with initial troponin negative. treated with diltiazem IV. Patient converted to sinus rhythm with heart rate as bradycardia in the 60 beats per minute around 6 AM. Patient had elevated troponin of 0.259 drawn also around 6 AM but apparently patient was not with chest pain at that time. Patient seen by daytime hospitalist examined around 8 AM. Patient feeling comfortable. denies chest pain currently. no shortness of breath and is breathing on room air. no dizziness. no lightheadedness. no nausea. no vomiting. Patient reports that his primary care doctor is at the [facility] but patient follows with [facility] affiliated treating and pumping supervisor Dr. Metz. EKG performed on 7:38 AM with T wave abnormalities and patient already had echocardiogram performed. -third troponin did increase to 0.284 and rest of the workup including echocardiogram did not lead to concern for acute coronary syndrome -cardiology summary from Dr. Carty "The patient presented with recurrent atrial fibrillation, with associated chest pressure sensation. Initial EKG revealed atrial fibrillation with mildly elevated ventricular rates, and lateral ST segment depression. Troponin peaked at 0.2 ng/ ml . Anginal symptoms have resolved with mormon of sinus rhythm while on diltiazem infusion in the diltiazem infusion has since been discontinued. Echocardiogram reveals moderate LV systolic dysfunction in the range of an ejection fraction of 35 to 40% with wall motion abnormalities consistent with his prior history of right coronary artery territory infarct. These findings are unchanged compared to the December, echocardiogram." -As per treating and pumping supervisor Dr. Carty , patient is to be started on metoprolol 25 mg tartrate twice daily -continue current dose of sotalol 120 mg twice daily, with metoprolol to minimize risk of proarrhythmia that can of course happen with sotalol. -continue Eliquis for stroke prophylaxis -Discharge medication of metoprolol tartrate 25 mg sent electronically to [facility] [address] [place] [address] [place] [id number] -Patient should follow up with cardiology 07/16/2019 1:00 PM Provider Luis Manuel Metz Jr., DO Department Cardiology, [facility] -Patient should make follow up appointment to see primary care doctor in 1 to 2 weeks (Because patient is on sotalol which can prolong QT intervals of the heart, patient who was previously on azithromycin should alert providers to consider strongly against medications which may prolong QT intervals) Chronic Systolic Congestive Heart Failure History of coronary artery disease status post coronary artery bypass graft. -recent echocardiogram with 40 percent ejection fraction. 07/03/2019 echoacrdiogram results pending -Continue home Lasix and potassium supplement and the patient is on Imdur, lisinopril, aspirin, statin, sotalol Deep vein thrombosis prophylaxis.On Eliquis. Total Time Total Time Spent Total Time Spent (In Minutes): 40 minutes Total Time Includes: Examination of the Patient, Discharge Planning, Medication Reconciliation and Communication With Other Providers Discharge Plan Discharge Items Patient Disposition: Home - Self-Care Reason For Visit: PALPITATIONS Discharge Diagnosis: Atrial fibrillation with RVR; Paroxysmal Atrial fibrillation; Anticoagulated by anticoagulation therapy; Elevated Troponins, Coronary artery disease, Chronic Systolic Congestive Heart Failure Condition on Discharge: Good Activity: Resume your previous activity Non-emergency contact: Primary Care Provider and [employer] Bagger Call non-emergency contact if: you have any medication questions Follow-up/Referrals: Vick Hare MD [Primary Care Provider] - Diet: Carb Consistent or DM2 and Heart Healthy Addtl Attending Provider Instructions: As per treating and pumping supervisor Dr. aCrty , patient is to be started on metoprolol 25 mg tartrate twice daily continue current dose of sotalol 120 mg twice daily, with metoprolol to minimize risk of proarrhythmia that can of course happen with sotalol. continue Eliquis for stroke prophylaxis Discharge medication of metoprolol tartrate 25 mg sent electronically to [facility] [id number] [facility] [id number] Patient should follow up with cardiology 07/16/2019 1:00 PM Provider Luis Manuel Metz Jr., DO Department Cardiology, [facility] Patient should make follow up appointment to see primary care doctor in 1 to 2 weeks (Because patient is on sotalol which can prolong QT intervals of the heart, patient who was previously on azithromycin should alert providers to consider strongly against medications which may prolong QT intervals) 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 Carty "The patient presented with recurrent atrial fibrillation, with associated chest pressure sensation. Initial EKG revealed atrial fibrillation with mildly elevated ventricular rates, and lateral ST segment depression. Troponin peaked at 0.2 ng/ ml . Anginal symptoms have resolved with mormon of sinus rhythm while on diltiazem infusion in the diltiazem infusion has since been discontinued. Echocardiogram reveals moderate LV systolic dysfunction in the range of an ejection fraction of 35 to 40% with wall motion abnormalities consistent with his prior history of right coronary artery territory infarct. These findings are unchanged compared to the December, echocardiogram." Pending Studies at Discharge: No Stand-Alone Forms: Call Back Authorization, [facility], Smoking Cessation Medications and DC Order Prescriptions: No Action Jardiance 25 mg Tablet 25 mg PO DAILY RF: 0 insulin aspart U-100 [Novolog U-100 Insulin aspart] 100 unit/mL Solution 50 unit SUBCUT DIRECTED RF: 0 insulin aspart U-100 [Novolog U-100 Insulin aspart] 100 unit/mL Solution 40 unit SUBCUT DIRECTED RF: 0 isosorbide mononitrate 60 mg Tablet Extended Release 24 Hr 60 mg PO DAILY RF: 0 Eliquis 5 mg Tablet 5 mg PO BID RF: 0 lisinopril 20 mg Tablet 20 mg PO BID RF: 0 zolpidem 10 mg Tablet 10 mg PO HS PRN (Reason: Sleep) RF: 0 sotalol 120 mg Tablet 120 mg PO BID RF: 0 atorvastatin 80 mg Tablet 80 mg PO DAILY RF: 0 furosemide [Lasix] 40 mg Tablet 40 mg PO BID RF: 0 fluoxetine 20 mg Tablet 80 mg PO DAILY RF: 0 potassium chloride 20 mEq Tablet Extended Release 20 meq PO BID RF: 0 nitroglycerin [Nitrostat] 0.4 mg Tablet, Sublingual 0.4 mg sublingual DIRECTED RF: 0 aspirin 81 mg Tablet,Delayed Release (Dr/Ec) 81 mg PO DAILY RF: 0 insulin aspart U-100 [Novolog U-100 Insulin aspart] 100 unit/mL Solution 45 unit SUBCUT DIRECTED RF: 0 Lantus Solostar U-100 Insulin 100 unit/mL (3 mL) Insulin Pen 80 unit SUBCUT QPM RF: 0 Discharge Orders: Discharge Order (Routine); Ordered 07/03/19 Ordered By: Ozzy Pineda Admission Data Admit Date/Time: 07/03/19 04:47 Attending Provider: Ozzy Pineda Admit Provider: Arthur Daily Primary Care Provider: Vick Hare Other Providers: Arthur Daily ; Quinton Rodriguez
[2019-07-03] MEDS ORDERED: INSULIN GLARGINE SOLOSTAR 100 UNITS/ML 3 ML PEN SC SCH (21:00)
--- NOTE | 2019-07-03 23:14 | Electrocardiogram Report ---
Test Reason : Blood Pressure : / mmHG Vent. Rate : 099 BPM Atrial Rate : 340 BPM P-R Int : 000 ms QRS Dur : 126 ms QT Int : 364 ms P-R-T Axes : 000 -15 147 degrees QTc Int : 467 ms Atrial fibrillation Non-specific intra-ventricular conduction block T wave abnormality, consider lateral ischemia Abnormal ECG When compared with ECG of 07-JUN-2019 20:08, Atrial fibrillation has replaced Sinus rhythm Vent. rate has increased BY 33 BPM Confirmed by Hesham Jordan ([id number]) on 07/03/2019 11:14:20 PM Referred By: REFERRED SELF Confirmed By:Hesham Jordan
--- NOTE | 2019-07-03 23:29 | Electrocardiogram Report ---
Test Reason : Blood Pressure : / mmHG Vent. Rate : 073 BPM Atrial Rate : 073 BPM P-R Int : 192 ms QRS Dur : 126 ms QT Int : 426 ms P-R-T Axes : 064 -14 122 degrees QTc Int : 469 ms Sinus rhythm with occasional Premature ventricular complexes Non-specific intra-ventricular conduction block Inferior infarct , age undetermined T wave abnormality, consider lateral ischemia Abnormal ECG When compared with ECG of 03-JUL-2019 01:41, Sinus rhythm has replaced Atrial fibrillation ST less depressed in Lateral leads Nonspecific T wave abnormality now evident in Anterior leads Confirmed by Hesham Jordan ([id number]) on 07/03/2019 11:29:28 PM Referred By: REFERRED SELF Confirmed By:Hesham Jordan
--- NOTE | 2019-07-04 06:17 | Electrocardiogram Report ---
Test Reason : Blood Pressure : / mmHG Vent. Rate : 063 BPM Atrial Rate : 063 BPM P-R Int : 176 ms QRS Dur : 110 ms QT Int : 434 ms P-R-T Axes : 072 -15 132 degrees QTc Int : 444 ms Normal sinus rhythm with sinus arrhythmia Minimal voltage criteria for LVH, may be normal variant Cannot rule out Inferior infarct Abnormal ECG When compared with ECG of 03-JUL-2019 07:38, Premature ventricular complexes are no longer Present Confirmed by Hesham Jordan ([id number]) on 07/04/2019 6:17:07 AM Referred By: REFERRED SELF Confirmed By:Hesham Jordan
[2019-07-04] MEDS ORDERED: METOPROLOL TARTRATE 25 MG TAB PO SCH (09:00)
== END 2019-07-03 17:17 | disposition home or self-care (01) | DRG 309 ==
LOC: ED 01:37 → 2S 04:47